=== PATIENT | female | born 1950 | race African-American/Black ===

== ENCOUNTER → 2016-11-12 | Outpatient (CLI) | payer BC, OTHER ==
[~2016-11-12] MED LIST: ACET-1175 PO; DESV50TA PO; DLC5 PO; ERYOPO1 OP; GABA-113 PO; IPRA1AER2 PO; LRS10 PO; METF-384 PO; OXYC-57 PO; PRD20 PO; PRT40 PO; TYL325X PO; UMEC1AER INH; WARF-286 PO; WARF1TAB6 PO
[2016-11-12 14:47] LABS: INR 1.1 (0.9-1.1); PROTHROMBIN TIME (PATIENT) 11.3 SECONDS (9.0-12.0)
[2016-11-12 14:51] LABS: ESTIMATED AVERAGE GLUCOSE 137 mg/dl; HA1C FLAG Normal (Normal)
[2016-11-12 15:06] LABS: ALT/SGPT 18 U/L (12-78); AST/SGOT 12 U/L (15-37); BLOOD UREA NITROGEN 5 mg/dl (7-18); BUN/CREATININE RATIO 8.9 (10-20); CALCIUM 8.7 mg/dl (8.5-10.1); CARBON DIOXIDE 29 mmol/L (21-32); CHLORIDE 108 mmol/L (98-107); CREATININE 0.61 mg/dl (0.60-1.20); GLUCOSE 117 mg/dl (70-99); POTASSIUM 3.4 mmol/L (3.5-5.1); SODIUM 144 mmol/L (136-145)
[2016-11-12 15:09] LABS: ALB/GLOB RATIO 0.9 (0.9-2); ALKALINE PHOSPHATASE 83 U/L (45-117); CHOLESTEROL 273 mg/dl (0-200); CHOLESTEROL/HDL RATIO 6.2; HDL CHOLESTEROL 44 mg/dl; LDL CHOLESTEROL CALCULATED 197 mg/dl; TRIGLYCERIDES 158 mg/dl (0-150); VERY LOW DENSITY LIPOPROT CALC 32 mg/dl
== END | disposition home or self-care (01) ==
LOC: C.LAB 13:53
PROVIDERS: ATTEND Family Medicine
DX: E11.9 Type 2 diabetes mellitus without complications (principal); E78.2 Mixed hyperlipidemia; I26.99 Other pulmonary embolism without acute cor pulmonale

== ENCOUNTER 2016-11-25 05:15 | Inpatient (IN) | payer BC, OTHER ==
[~2016-11-25] VITALS: Ht 167.6 cm; Wt 63.5 kg
[~2016-11-25 05:15] MED LIST changes: -ACET-1175 PO; -DESV50TA PO; -DLC5 PO; -LRS10 PO; -OXYC-57 PO
[2016-11-25] MEDS ORDERED: HYDROmorphone INJ 1 MG/ML SYR IV STA (05:30)
[2016-11-25] MEDS ORDERED: SODIUM CHLORIDE 0.9% 500ML 500 ML IV STA (05:30)
[2016-11-25] MEDS ORDERED: ONDANSETRON INJ 2 MG/ML 2 ML VIAL IV STA (05:30)
--- NOTE | 2016-11-25 05:33 | EMERGENCY ROOM VISIT NOTE ---
History Report prepared by Meghann: Suman Araiza Under the Supervision of: Dr. Catarino Briones M.D. First contact with patient: 05:25 Chief Complaint: ABDOMINAL PAIN Stated Complaint: ABDOMINAL PAIN,NAUSEA,VOMITING History of Present Illness The patient is a 66 year old female who presents to the Emergency Room with complaints of persistent bilateral lower abdominal pain for the past several days. The pain is severe and radiates to her lower back. She has also been experiencing nausea & vomiting for the past two days. She has not had much of an appetite for the past 4-5 days. The patient has also been short of breath. She denies any recent episodes of syncope, chest pain, or black or bloody stools. The patient is on Coumadin. Source of History: patient, family Onset: several days ago Position: abdomen (lower bilateral) Symptom Intensity: severe Timing: other (persistent) Associated Symptoms: + SOB, + nausea, + vomiting, No LOC, No chest pain, No hematochezia, No melena Review of Systems See HPI for pertinent positives & negatives. A total of 10 systems reviewed and were otherwise negative. Past Medical & Surgical Medical Problems: (1) Asthma (2) Bronchitis (3) Cellulitis and abscess of face (4) COPD (chronic obstructive pulmonary disease) (5) Diabetes (6) Diabetic neuropathy (7) Emphysema lung (8) facial cellulitis worsening (9) Gastrointestinal bleed (10) GI bleed (11) Heart disease (12) PE (pulmonary embolism) (13) Pneumonia (14) Pulmonary embolism (15) SOB (shortness of breath) (16) Stroke (17) Tachycardia Family History Cancer Diabetes mellitus Hypertension Social History Smoking Status: Never Smoker Alcohol Use: none Drug Use: marijuana Marital Status: Housing Status: lives with family, lives with significant other Occupation Status: retired Current/Historical Medications Scheduled Desvenlafaxine Succinate Er (Pristiq), 50 MG PO BID Gabapentin (Neurontin), 300 MG PO TID Ipratropium-Albuterol (Combivent Respimat), 1 PUFF PO QID Metformin Hcl (Glucophage), 1,000 MG PO BID Warfarin Sod (Jantoven), 1 MG PO DAILY Warfarin Sodium (Warfarin Sodium), 6 MG PO DAILY Scheduled PRN Acetaminophen (Tylenol), 650 MG PO Q4H PRN for Pain or Fever Allergies Coded Allergies: Bacitracin (Verified Allergy, Intermediate, facial swelling and erythema, 11/25/16) Sulfa Antibiotics (Verified Allergy, Intermediate, ???, 11/25/16) Physical Exam Vital Signs Date Time Temp Pulse Resp B/P Pulse Ox O2 Delivery O2 Flow Rate FiO2 11/25/16 08:23 78 18 185/92 94 Nasal Cannula 2.0 11/25/16 07:51 103 16 97 Nasal Cannula 3.0 11/25/16 07:00 97 Nasal Cannula 3.0 11/25/16 06:47 97 Nasal Cannula 3.0 11/25/16 06:28 67 Room Air 11/25/16 06:26 109 20 172/146 96 Nasal Cannula 3.0 11/25/16 05:19 36.3 73 20 208/75 93 Room Air Physical Exam GENERAL: Patient is very uncomfortable appearing in moderate / severe distress. Dry heaving on exam. HEENT: No acute trauma, normocephalic atraumatic, mucous membranes dry, no nasal congestion, no scleral icterus. NECK: No stridor, no adenopathy, no meningismus, trachea is midline. LUNGS: No dyspnea. Clear to auscultation and equal bilaterally. No wheeze, no rhonchi. HEART: Regular rate and rhythm. No murmurs, rubs, gallops appreciated. ABDOMEN: Diffuse bilateral lower abdominal tenderness to palpation. Soft, bowel sounds positive, no masses appreciated, no peritonitis. BACK: No midline tenderness, no CVA tenderness EXTREMITIES: Normal motion all extremities, no cyanosis, no edema. NEUROLOGIC: Alert and oriented, no acute motor or sensory deficits, no focal weakness, cranial nerves grossly intact. SKIN: No rash, no jaundice, no diaphoresis. Medical Decision & Procedures ER Provider Diagnostic Interpretation: See CT abdo/pelv read by radiologist: 6 mm left distal ureteral stone with mild hydro. Left rectus sheath fluid collection. Laboratory Results Test 11/25/16 05:41 11/25/16 05:51 11/25/16 05:57 RDW Standard Deviation 44.3 fL (36.4-46.3) RDW Coefficient of Variation 13.7 % (11.5-14.5) White Blood Count 12.23 K/uL (4.8-10.8) Red Blood Count 4.77 M/uL (4.2-5.4) Hemoglobin 14.1 g/dL (12.0-16.0) Hematocrit 41.8 % (37-47) Mean Corpuscular Volume 87.6 fL (80-100) Mean Corpuscular Hemoglobin 29.6 pg (25-34) Mean Corpuscular Hemoglobin Concent 33.7 g/dl (32-36) Platelet Count 284 K/uL (130-400) Mean Platelet Volume 10.6 fL (7.4-10.4) Neutrophils (%) (Auto) 77.6 % Lymphocytes (%) (Auto) 14.8 % Monocytes (%) (Auto) 6.4 % Eosinophils (%) (Auto) 0.7 % Basophils (%) (Auto) 0.3 % Neutrophils # (Auto) 9.49 K/uL (1.4-6.5) Lymphocytes # (Auto) 1.81 K/uL (1.2-3.4) Monocytes # (Auto) 0.78 K/uL (0.11-0.59) Eosinophils # (Auto) 0.09 K/uL (0-0.5) Basophils # (Auto) 0.04 K/uL (0-0.2) Immature Granulocyte % (Auto) 0.2 % Immature Granulocyte # (Auto) 0.02 K/uL (0.00-0.02) Est Creatinine Clear Calc Drug Dose 66.3 ml/min Total Bilirubin 0.3 mg/dl (0.2-1) Direct Bilirubin < 0.1 mg/dl (0-0.2) Aspartate Amino Transf (AST/SGOT) 13 U/L (15-37) Alanine Aminotransferase (ALT/SGPT) 12 U/L (12-78) Alkaline Phosphatase 89 U/L (45-117) Total Protein 7.7 gm/dl (6.4-8.2) Albumin 3.9 gm/dl (3.4-5.0) Lipase 81 U/L (73-393) Bedside Lactic Acid Venous 1.70 mmol/L (0.90-1.70) Bedside Hemoglobin 15.0 g/dl (12.0-16.0) Bedside Hematocrit 44 % (37-47) Bedside Sodium 143 mEq/L (135-144) Bedside Potassium 3.0 mEq/L (3.3-5.0) Bedside Chloride 100 mEq/L (101-112) Bedside Total CO2 28 mEq/l (24-31) Bedside Blood Urea Nitrogen 9 mg/dl (7-18) Bedside Creatinine 0.7 mg/dl (0.6-1.3) Bedside Glucose (other) 237 mg/dl (70-99) Bedside Ionized Calcium (Ruth) 1.20 mmol/l (1.12-1.32) Laboratory results as reviewed by me. Medications Administered Medications (Trade) Dose Ordered Sig/[facility] Route Start Time Stop Time Status Last Admin Dose Admin Sodium Chloride (Nss 500ml) 500 ml @ 999 mls/hr Q31M STAT IV 11/25/16 05:30 11/25/16 06:00 DC 11/25/16 05:42 999 MLS/HR Hydromorphone HCl (Dilaudid Inj) 1 mg NOW STAT IV 11/25/16 05:30 11/25/16 05:32 DC 11/25/16 05:42 1 MG Ondansetron HCl (Zofran Inj) 4 mg NOW STAT IV 11/25/16 05:30 11/25/16 05:32 DC 11/25/16 05:42 4 MG Fentanyl Citrate (Fentanyl Inj) 75 mcg NOW STAT IV 11/25/16 06:17 11/25/16 06:18 DC 11/25/16 06:23 75 MCG Hydromorphone HCl 1 mg 1 mg Q30M PRN IV 11/25/16 06:30 11/25/16 12:40 DC 11/25/16 10:33 1 MG Sodium Chloride (Nss 1000ml) 1,000 ml @ 75 mls/hr [id number] STAT IV 11/25/16 06:27 11/25/16 12:41 DC 11/25/16 06:42 75 MLS/HR Magnesium Sulfate (Magnesium Sulfate) 1 gm NOW STAT IV 11/25/16 08:17 11/25/16 08:29 DC 11/25/16 10:33 1 GM ED Course 0525: The patient was evaluated in room B9. A complete history and physical exam was performed. 0530: Zofran 4 mg IV, Dilaudid 1 mg IV, NSS 500 ml @ 999 mls/hr. 0617: Fentanyl 75 mcg IV. Medical Decision Differential: Appendicitis, Diverticulitis, PUD/Gastritis, Biliary Pathology, UTI, Pyelonephritis, Renal Colic, Bowel Obstruction, Aortic Pathology, Acute Coronary Syndrome, amongst other pathologies entertained. Very pleasant 66 yr old female with gradually worsening bilateral lower abdominal pain over the last 4 days. Initially started improving though has returned severely. Pain bilateral and radiates to flanks. Given symptoms felt CT mandatory which revealed left ureteral stone with hydro as well as rectus hematoma. Suspect with vomiting/dry heaving from stone she has rectus bleeding as she is on Coumadin. Severely uncomfortable and no improvement with initial Dilaudid, thus given fentanyl. Pain improved with this though quite somnolent. INR 1.6 thus will hold on reversing anticoagulation as not hypotensive and HgB is good. Gentle hydration given her history as well. Given this she will need to come in for further evaluation, monitoring, treatment. Discussed with medical team. Impression Primary Impression: Left ureteral calculus Additional Impressions: Hydronephrosis, left Rectus sheath hematoma Intractable abdominal pain Scribe Attestation The scribe's documentation has been prepared under my direction and personally reviewed by me in its entirety. I confirm that the note above accurately reflects all work, treatment, procedures, and medical decision making performed by me. Departure Information Referrals Denis Samuel DO (PCP) Forms HOME CARE DOCUMENTATION FORM, IMPORTANT VISIT INFORMATION Patient Instructions My [facility] Problem Qualifiers Additional Impressions: Rectus sheath hematoma Encounter type: initial encounter Qualified Codes: S30.1XXA - Contusion of abdominal wall, initial encounter
[2016-11-25] MEDS ORDERED: DESV50TA PO (05:36)
[2016-11-25] MEDS ORDERED: OPTIRAY 320 IV PRN ×2 (05:45→08:45)
[2016-11-25 06:11] LABS: ISTAT CREATININE 0.7 mg/dl (0.6-1.3); ISTAT IONIZED CALCIUM 1.2 mmol/l (1.12-1.32)
[2016-11-25] MEDS ORDERED: FENTANYL CITRATE INJ 50 MCG/1 ML 2 ML VIAL IV STA (06:17)
[2016-11-25 06:19] LABS: ALT/SGPT 12 U/L (12-78); BLOOD UREA NITROGEN 10 mg/dl (7-18); BUN/CREATININE RATIO 12.8 (10-20); CALCIUM 9.3 mg/dl (8.5-10.1); CARBON DIOXIDE 28 mmol/L (21-32); CHLORIDE 104 mmol/L (98-107); CREATININE 0.76 mg/dl (0.60-1.20); GLUCOSE 228 mg/dl (70-99); MAGNESIUM 1.5 mg/dl (1.8-2.4); SODIUM 142 mmol/L (136-145)
[2016-11-25] MEDS ORDERED: ACET-1175 PO (06:20)
[2016-11-25 06:22] LABS: ALKALINE PHOSPHATASE 89 U/L (45-117); AST/SGOT 13 U/L (15-37)
[2016-11-25 06:26] LABS: INR 1.6 (0.9-1.1); PROTHROMBIN TIME (PATIENT) 17.7 SECONDS (9.0-12.0)
[2016-11-25] MEDS ORDERED: SODIUM CHLORIDE 0.9% 1000ML 1,000 ML IV STA (06:27)
[2016-11-25] MEDS ORDERED: ONDANSETRON INJ 2 MG/ML 2 ML VIAL IV PRN (06:30)
[2016-11-25 07:00] VITALS: O2SAT 97; Ht 167.6 cm; Wt 63.5 kg
--- NOTE | 2016-11-25 07:05 | DIAGNOSTIC IMAGING REPORT ---
ABDOMEN AND PELVIS CT WITH IV CONTRAST CT DOSE: 259.54 mGy.cm HISTORY: Pain bilateral abdominal lower pain TECHNIQUE: Multiaxial CT images of the abdomen and pelvis were performed following the use of intravenous contrast. COMPARISON STUDY: A1 2013 FINDINGS: 5 mm obstructing calculus distal left ureter slightly proximal to the left ureterovesical junction. Mild left hydroureteronephrosis. Bowel pattern is nonobstructive. Liver spleen and pancreas are unremarkable. Fluid collection within the right rectus musculature at its inferior margin measuring 6 x 4.5 x 8 cm. This appears represent a rectus hematoma versus seroma. Several uterine myometrial calcifications. IMPRESSION: 1. Obstructing calculus distal left ureter measuring 5 mm. 2. Mild left hydroureteronephrosis. 3. Lower right rectus hematoma/seroma. 4. Nonobstructive bowel pattern. Electronically signed by: Scout Lopez M.D. 11/25/2016 7:03 AM Dictated Date/Time: 11/25/2016 7:00 AM
[2016-11-25 07:28] LABS: BASO % 0.3 %; BASO ABS # 0.04 K/uL (0-0.2); COMPLETE YES; EOS % 0.7 %; HEMATOCRIT 41.8 % (37-47); IG% 0.2 %; LYMPH % 14.8 %; LYMPH ABS # 1.81 K/uL (1.2-3.4); MEAN CELL VOLUME 87.6 fL (80-100); MEAN CORPUSCULAR HEMOGLOBIN 29.6 pg (25-34); MEAN CORPUSCULAR HGB CONC 33.7 g/dl (32-36); MEAN PLATELET VOLUME 10.6 fL (7.4-10.4); MONO % 6.4 %; NEUT % 77.6 %; PLATELET COUNT 284 K/uL (130-400); RED BLOOD COUNT 4.77 M/uL (4.2-5.4); WHITE BLOOD COUNT 12.23 K/uL (4.8-10.8)
[2016-11-25] MEDS: HYDROmorphone INJ 1 MG/ML SYR IV PRN ×6 (07:50→23:41)
[2016-11-25] MEDS ORDERED: MAGNESIUM SULFATE 1GM / D5W 1 GM BAG IV STA (08:17)
[2016-11-25] MEDS ORDERED: HydrALAZINE HCL 20 MG/ML VIAL IV. PRN (08:30)
[2016-11-25] MEDS ORDERED: ACETAMINOPHEN 325 MG TAB PO PRN (08:30)
--- NOTE | 2016-11-25 08:40 | History and Physical ---
History & Physical Date & Time of Service: Nov 25, 2016 at 08:27 Chief Complaint: Abdominal Pain,Nausea,Vomiting Primary Care Physician: Denis Samuel DO History of Present Illness Source: patient, hospital records This patient is a 66-year-old female that presents to emergency department with complaints of lower abdominal pain that started 4-5 days ago. It started on the right. It is now the entire lower abdomen and radiates to her back. She describes it as a severe dull ache. No exacerbating or alleviating factors. She is also had nausea with multiple episodes of vomiting in addition to some diarrhea. No reported dark stools or blood in her stool. She denies any fever or chills. She denies any urinary symptoms. The patient also says that she has felt short of breath over the last few days. She denies any chest pain or pressure. No cough. She does have a history of COPD. She is typically on oxygen at home. Past Medical/Surgical History Medical Problems: Hx of Gastritis (3) COPD (chronic obstructive pulmonary disease) Status: Chronic (4) Diabetes Status: Chronic (5) Diabetic neuropathy Status: Chronic (6) Emphysema lung Status: Resolved (7) Heart disease Status: Chronic (8) PE (pulmonary embolism) Status: Resolved (9) Pneumonia Status: Resolved (10) Pulmonary embolism Status: Resolved (11) Stroke Status: Resolved TIA Status post IVC filter placement Anxiety Family History Cancer Diabetes mellitus Hypertension Social History Smoking Status: Current Every Day Smoker (smokes one pack of cigarettes per day ) Alcohol Use: none Drug Use: marijuana Marital Status: Housing status: lives with family 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) Immunizations History of Influenza Vaccine: No Influenza Vaccine Date: Aug 07, 2010 History of Tetanus Vaccine?: Unknown History of Pneumococcal: No Pneumococcal Date: May 04, 2006 History of Hepatitis B Vaccine: Unknown Multi-Drug Resistant Organisms History of MDRO: No Allergies Coded Allergies: Bacitracin (Verified Allergy, Intermediate, facial swelling and erythema, 11/25/16) Sulfa Antibiotics (Verified Allergy, Intermediate, ???, 11/25/16) Home Medications Scheduled Desvenlafaxine Succinate Er (Pristiq), 50 MG PO BID Gabapentin (Neurontin), 300 MG PO TID Ipratropium-Albuterol (Combivent Respimat), 1 PUFF PO QID Metformin Hcl (Glucophage), 1,000 MG PO BID Warfarin Sod (Jantoven), 1 MG PO DAILY Warfarin Sodium (Warfarin Sodium), 6 MG PO DAILY Scheduled PRN Acetaminophen (Tylenol), 650 MG PO Q4H PRN for Pain or Fever Review of Systems 10 system review performed and negative unless noted in HPI or below Physical Exam Vital Signs Date Time Temp Pulse Resp B/P Pulse Ox O2 Delivery O2 Flow Rate FiO2 11/25/16 08:23 78 18 185/92 94 Nasal Cannula 2.0 11/25/16 07:51 103 16 97 Nasal Cannula 3.0 11/25/16 07:00 97 Nasal Cannula 3.0 11/25/16 06:47 97 Nasal Cannula 3.0 11/25/16 06:28 67 Room Air 11/25/16 06:26 109 20 172/146 96 Nasal Cannula 3.0 11/25/16 05:19 36.3 73 20 208/75 93 Room Air General Appearance: + mild distress (66-year-old female. Somewhat somnolent) Head: normocephalic Eyes: EOMI ENT: + pertinent finding (oral mucosa dry) Neck: no JVD Respiratory/Chest: lungs clear Cardiovascular: no murmur, + tachycardia, + pertinent finding (regular rhythm) Abdomen/GI: normal bowel sounds, soft, + pertinent finding (tenderness to palpation noted in the left lower and suprapubic regions. Left CVA tenderness noted.) Extremities/Musculoskelatal: no calf tenderness, no pedal edema Neurologic/Psych: no motor/sensory deficits, oriented x 3 Skin: warm/dry Diagnostics Laboratory Results Results Past 24 Hours Test 11/25/16 05:41 11/25/16 05:51 11/25/16 05:57 Range/Units White Blood Count 12.23 4.8-10.8 K/uL Red Blood Count 4.77 4.2-5.4 M/uL Hemoglobin 14.1 12.0-16.0 g/dL Hematocrit 41.8 37-47 % Mean Corpuscular Volume 87.6 80-100 fL Mean Corpuscular Hemoglobin 29.6 25-34 pg Mean Corpuscular Hemoglobin Concent 33.7 32-36 g/dl Platelet Count 284 130-400 K/uL Mean Platelet Volume 10.6 7.4-10.4 fL Neutrophils (%) (Auto) 77.6 % Lymphocytes (%) (Auto) 14.8 % Monocytes (%) (Auto) 6.4 % Eosinophils (%) (Auto) 0.7 % Basophils (%) (Auto) 0.3 % Neutrophils # (Auto) 9.49 1.4-6.5 K/uL Lymphocytes # (Auto) 1.81 1.2-3.4 K/uL Monocytes # (Auto) 0.78 0.11-0.59 K/uL Eosinophils # (Auto) 0.09 0-0.5 K/uL Basophils # (Auto) 0.04 0-0.2 K/uL RDW Standard Deviation 44.3 36.4-46.3 fL RDW Coefficient of Variation 13.7 11.5-14.5 % Immature Granulocyte % (Auto) 0.2 % Immature Granulocyte # (Auto) 0.02 0.00-0.02 K/uL Prothrombin Time 17.7 9.0-12.0 SECONDS Prothromb Time International Ratio 1.6 0.9-1.1 Sodium Level 142 136-145 mmol/L Potassium Level 3.0 3.5-5.1 mmol/L Chloride Level 104 98-107 mmol/L Carbon Dioxide Level 28 21-32 mmol/L Anion Gap 10.0 19.0 16-25 mmol/L Blood Urea Nitrogen 10 7-18 mg/dl Creatinine 0.76 0.60-1.20 mg/dl Est Creatinine Clear Calc Drug Dose 66.3 ml/min Estimated GFR () 93.4 Estimated GFR (Non- 80.6 BUN/Creatinine Ratio 12.8 10-20 Random Glucose 228 70-99 mg/dl Calcium Level 9.3 8.5-10.1 mg/dl Magnesium Level 1.5 1.8-2.4 mg/dl Total Bilirubin 0.3 0.2-1 mg/dl Direct Bilirubin < 0.1 0-0.2 mg/dl Aspartate Amino Transf (AST/SGOT) 13 15-37 U/L Alanine Aminotransferase (ALT/SGPT) 12 12-78 U/L Alkaline Phosphatase 89 45-117 U/L Total Protein 7.7 6.4-8.2 gm/dl Albumin 3.9 3.4-5.0 gm/dl Lipase 81 73-393 U/L Bedside Lactic Acid Venous 1.70 0.90-1.70 mmol/L Bedside Hemoglobin 15.0 12.0-16.0 g/dl Bedside Hematocrit 44 37-47 % Bedside Sodium 143 135-144 mEq/L Bedside Potassium 3.0 3.3-5.0 mEq/L Bedside Chloride 100 101-112 mEq/L Bedside Total CO2 28 24-31 mEq/l Bedside Blood Urea Nitrogen 9 7-18 mg/dl Bedside Creatinine 0.7 0.6-1.3 mg/dl Bedside Glucose (other) 237 70-99 mg/dl Bedside Ionized Calcium (Ruth) 1.20 1.12-1.32 mmol/l Diagnostic Radiology Patient Name: LUIZ KIDD Unit Number: [id number] Dictated: 11/25/16699 Transcribed: 11/25/16699 MS Printed Date/Time: [~ rep prt dt]/[~ rep prt tm] [~ rep ct labl] - [~ rep ct ivnm] [facility] [place] [place] [address] Dictated: 11/25/16699 Transcribed: 11/25/16699 MS Printed Date/Time: [~ rep prt dt]/[~ rep prt tm] [~ rep ct labl] - [~ rep ct ivnm] ABDOMEN AND PELVIS CT WITH IV CONTRAST CT DOSE: 259.54 mGy.cm HISTORY: Pain bilateral abdominal lower pain TECHNIQUE: Multiaxial CT images of the abdomen and pelvis were performed following the use of intravenous contrast. COMPARISON STUDY: A1 2013 FINDINGS: 5 mm obstructing calculus distal left ureter slightly proximal to the left ureterovesical junction. Mild left hydroureteronephrosis. Bowel pattern is nonobstructive. Liver spleen and pancreas are unremarkable. Fluid collection within the right rectus musculature at its inferior margin measuring 6 x 4.5 x 8 cm. This appears represent a rectus hematoma versus seroma. Several uterine myometrial calcifications. IMPRESSION: 1. Obstructing calculus distal left ureter measuring 5 mm. 2. Mild left hydroureteronephrosis. 3. Lower right rectus hematoma/seroma. 4. Nonobstructive bowel pattern. Electronically signed by: Scout Lopez M.D. 11/25/2016 7:03 AM Dictated Date/Time: 11/25/2016 7:00 AM The status of this report is Signed. Draft = Not yet reviewed or approved by Radiologist. Signed = Reviewed and approved by Radiologist. <AttendingPhy></AttendingPhy> <FamilyPhy>Denis Samuel, DO</FamilyPhy> < PrimaryPhy>Denis Samuel, DO</PrimaryPhy> <UnitNumber>[id number]</ UnitNumber> <VisitNumber>[id number]</VisitNumber> <PatientName>LUIZ KIDD< /PatientName> <DateOfBirth>1950</DateOfBirth> <Location>C.EDB</Location> < ServiceDate>11/25/16</ServiceDate> <MNE>ESINDI</MNE> <OrderingPhy>Catarino Briones M.D.</OrderingPhy> <OrderingPhyMNE>f rep ord dr kerns</OrderingPhyMNE> < DictatingPhyMNE>f rep dict dr kerns</DictatingPhyMNE> <CCListMNE>f rep ct mne</ CCListMNE> <AdmittingPhyMNE>f pt admit dr kerns</AdmittingPhyMNE> <AttendingPhyMNE >f pt attend dr kerns</AttendingPhyMNE> <ConsultingPhyMNE>f pt consult dr kerns</ConsultingPhyMNE> <FamilyPhyMNE>f pt fam dr kerns</FamilyPhyMNE> <OtherPhyMNE>f pt other dr kerns</OtherPhyMNE> < PrimaryPhyMNE>f pt prim care dr kerns</PrimaryPhyMNE> <ReferringPhyMNE>f pt referring dr kerns</ReferringPhyMNE> Impression Assessment and Plan 66-year-old female presented to the emergency department with lower abdominal pain, nausea, vomiting and diarrhea for the last several days. Also notes some shortness of breath. Workup in the emergency department is significant for a 5 mm left ureteral obstructing stone and a hematoma in the rectus musculature of the abdomen. Ureteral stone -Admit to medical floor -Dilaudid 1 mg IV every 2 hours as needed for pain -Begin Flomax 0.4 mg daily -Follow up urine to rule out infection -Urology consult -IVF -NPO Shortness of breath-patient is also tachycardic. -CT chest to rule out PE -Lower extremity ultrasound bilaterally-rule out DVT DM -home dose of metformin 1000 mg po BID will need to be held for [address] HTN-no formal dx -Hydralazine 10 mg IV q 6 hr PRN -consider adding beta vikki or natalya (not now given IV contrast) COPD -Continue Combivent inhaler 4 times daily History of clotting disorder/PE-INR is subtherapeutic -Hold Coumadin for possible OR procedure in addition to rectus muscle hematoma -Check INR in the morning Hx of IVC filter placement-unsure what year -noted Hypokalemia/hypomagnesemia -Repleted -Check PRP was a magnesium in the morning Rectus muscle hematoma -Hold Coumadin as noted above -Watch for signs of increasing abdominal pain Anxiety -Continue Pristiq 50 mg po BID DVT prophylaxis -Teds and SCDs for now -Consider starting low-dose subcutaneous heparin tomorrow CODE STATUS -LEVEL I FULL CODE I agree with PA assessment and plan and have seen and examined pt myself Pt resting comfortably in bed althought states pain is 8/10 in LLQ abdomen Asking for more pain meds Conservative management for kidney stone VSS Reviewed labs Observe rectus hematoma Level of Care Med/Surg Advanced Directives Existing Living Will: No Existing Power of District Sales Coordinator: No Resuscitation Status FULL RESUSCITATION VTE Prophylaxis VTE Risk Assessment Done? Y/N: Yes Risk Level: Moderate Given or contraindicated: T.E.D. Stockings, SCD's, Contraindicated
[2016-11-25] MEDS ORDERED: TAMSULOSIN HCL 0.4 MG CAP PO ONE (09:00)
--- NOTE | 2016-11-25 09:34 | DIAGNOSTIC IMAGING REPORT ---
CT ANGIOGRAPHY OF THE CHEST, PULMONARY EMBOLUS PROTOCOL CLINICAL HISTORY: Shortness of breath and tachycardia. History of pulmonary embolus. COMPARISON STUDY: Chest CT August 01, 2016. TECHNIQUE: Following IV administration of 76 mL of [id number], helical axial images of the chest were obtained utilizing the pulmonary embolus protocol. Maximal intensity projections and sagittal and coronal reformats were viewed on an independent 3D workstation. IV contrast was administered without complication. CT DOSE: 262.45 mGy.cm FINDINGS: No pulmonary emboli are identified. The heart is mildly enlarged. There is moderate coronary artery calcification. There is moderate atherosclerotic plaque of the thoracic aorta without dissection. Central airways are patent. Groundglass opacities represent atelectasis. There is no pneumothorax or pleural effusion. Visualized portions of the upper abdomen demonstrate mild to moderate left hydronephrosis with a delayed left nephrogram with perinephric infiltration. IMPRESSION: 1. No pulmonary emboli identified. 2. No acute intrathoracic findings. 3. Delayed left diaphragm with left hydronephrosis and perinephric infiltration due to the distal left ureteral calculus which is shown on the abdominal CT performed earlier today. Electronically signed by: Dawit Sorto M.D. 11/25/2016 9:32 AM Dictated Date/Time: 11/25/2016 9:21 AM
--- NOTE | 2016-11-25 09:43 | DIAGNOSTIC IMAGING REPORT ---
BILATERAL LOWER EXTREMITY VENOUS DOPPLER HISTORY: Short of breath. History of pontine most. Assess for DVT. COMPARISON STUDY: None. FINDINGS: There is normal compressibility and augmentation within the bilateral lower extremity deep venous systems. Slow venous flow throughout the bilateral lower extremities. IMPRESSION: No DVT within the right or left lower extremity. Electronically signed by: Balwinder Nam M.D. 11/25/2016 9:41 AM Dictated Date/Time: 11/25/2016 9:40 AM
[2016-11-25] MEDS ORDERED: MAGNESIUM SULFATE 1GM / D5W 1 GM BAG ONE (10:35)
[2016-11-25 12:39] VITALS: BP 114/79; PULSE 97; TEMP 36; O2SAT 90
[2016-11-25] MEDS ORDERED: DEXTROSE 50% 50 ML SYR IV PRN (12:45)
[2016-11-25] MEDS ORDERED: GLUCOSE 10 TABS/TUBE PO PRN (12:45)
[2016-11-25] MEDS ORDERED: GLUCOSE 40% GEL 15 GM TUBE PO PRN (12:45)
[2016-11-25] MEDS ORDERED: GLUCAGON FOR INJ 1 MG VIAL SQ PRN (12:45)
[2016-11-25 13:35] LABS: URINE APPEARANCE CLEAR (CLEAR); URINE BILIRUBIN NEG (NEG); URINE COLOR YELLOW; URINE NITRITE NEG (NEG); URINE PH 5.5 (4.5-7.5); UROBILINOGEN NEG (NEG); ZZUR CULT IF INDIC CLEAN CATCH NO
--- NOTE | 2016-11-25 13:38 | Urology Consultation ---
History General Date of Service: Nov 25, 2016. Chief Complaint: abdominal pain Primary Care Physician: Denis Samuel, DO Pt seen a urologist before?: Yes (Dr. Cody in 2010) If yes, why?: hematuria History of Present Illness 66 yo female presents to [facility] with c/o RLQ abdominal pain x 4 days. She reports the pain became diffuse abdominal pain and was accompanied by n/v yesterday, so she came to [facility]. CT scan showing a 5mm distal left ureteral stone and an 8cm right rectus hematoma vs seroma. She has a lengthy hx of PE with filter currently in place. She reports to me this afternoon that she was hospitalized in [place] earlier this year and told she had a "blood collection" in her abdomen at that time which was just observed. She reports similar abdominal pain at that time. On Coumadin indefinitely for her chronic PEs. This is currently held. She has no previous hx of stones. Previously saw Dr. Cody in 2010 for gross hematuria. She reports her pain is currently controlled, but she continues to have n/v. Denies fevers at home. She is afebrile here. White count noted to be 12.23. Cr is 0.76. Denies dysuria or hematuria. Imaging Imaging: CT Laboratory Last 24 Hours Test 11/25/16 05:41 11/25/16 05:51 11/25/16 05:57 11/25/16 12:40 White Blood Count 12.23 K/uL Red Blood Count 4.77 M/uL Hemoglobin 14.1 g/dL Hematocrit 41.8 % Mean Corpuscular Volume 87.6 fL Mean Corpuscular Hemoglobin 29.6 pg Mean Corpuscular Hemoglobin Concent 33.7 g/dl Platelet Count 284 K/uL Mean Platelet Volume 10.6 fL Neutrophils (%) (Auto) 77.6 % Lymphocytes (%) (Auto) 14.8 % Monocytes (%) (Auto) 6.4 % Eosinophils (%) (Auto) 0.7 % Basophils (%) (Auto) 0.3 % Neutrophils # (Auto) 9.49 K/uL Lymphocytes # (Auto) 1.81 K/uL Monocytes # (Auto) 0.78 K/uL Eosinophils # (Auto) 0.09 K/uL Basophils # (Auto) 0.04 K/uL RDW Standard Deviation 44.3 fL RDW Coefficient of Variation 13.7 % Immature Granulocyte % (Auto) 0.2 % Immature Granulocyte # (Auto) 0.02 K/uL Prothrombin Time 17.7 SECONDS Prothromb Time International Ratio 1.6 Sodium Level 142 mmol/L Potassium Level 3.0 mmol/L Chloride Level 104 mmol/L Carbon Dioxide Level 28 mmol/L Anion Gap 10.0 mmol/L 19.0 mmol/L Blood Urea Nitrogen 10 mg/dl Creatinine 0.76 mg/dl Est Creatinine Clear Calc Drug Dose 66.3 ml/min Estimated GFR () 93.4 Estimated GFR (Non- 80.6 BUN/Creatinine Ratio 12.8 Random Glucose 228 mg/dl Calcium Level 9.3 mg/dl Magnesium Level 1.5 mg/dl Total Bilirubin 0.3 mg/dl Direct Bilirubin < 0.1 mg/dl Aspartate Amino Transf (AST/SGOT) 13 U/L Alanine Aminotransferase (ALT/SGPT) 12 U/L Alkaline Phosphatase 89 U/L Total Protein 7.7 gm/dl Albumin 3.9 gm/dl Lipase 81 U/L Bedside Lactic Acid Venous 1.70 mmol/L Bedside Hemoglobin 15.0 g/dl Bedside Hematocrit 44 % Bedside Sodium 143 mEq/L Bedside Potassium 3.0 mEq/L Bedside Chloride 100 mEq/L Bedside Total CO2 28 mEq/l Bedside Blood Urea Nitrogen 9 mg/dl Bedside Creatinine 0.7 mg/dl Bedside Glucose (other) 237 mg/dl Bedside Ionized Calcium (Ruth) 1.20 mmol/l Problem List Medical Problems: (1) Chest pain Status: Acute (2) Hydronephrosis, left Status: Acute (3) Intractable abdominal pain Status: Acute (4) Left ureteral calculus Status: Acute (5) Rectus sheath hematoma Status: Acute (6) Subtherapeutic international normalized ratio (INR) Status: Acute (7) Subtherapeutic phenytoin level Status: Acute (8) Upper GI bleeding Status: Acute Past History anxiety, cancer - breast, COPD, coronary artery disease, CVA/TIA/stroke (TIA), diabetes, pneumonia, pulmonary embolism (multiple), other Past Surgical History: other (IVC filter placement; breast lumpectomy) Family History Cancer Diabetes mellitus Hypertension Social History Hx Tobacco Use In Past Year?: Yes Smokin pack/day Alcohol: never Drug use: marijuana Marital status: Housing status: lives with family 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) Immunizations History of Influenza Vaccine: No Influenza Vaccine Date: Aug 07, 2010 History of Tetanus Vaccine?: Unknown History of Pneumococcal: No Pneumococcal Date: May 04, 2006 History of Hepatitis B Vaccine: Unknown History of MDRO No Allergies Coded Allergies: Bacitracin (Verified Allergy, Intermediate, facial swelling and erythema, 11/25/16) Sulfa Antibiotics (Verified Allergy, Intermediate, ???, 11/25/16) Medications Home Medications: Home Meds and Scripts Medications Dose Route/Sig Max Daily Dose Days Date Category Dose Instructions Tylenol (Acetaminophen) 325 Mg Tab 650 Mg PO Q4H PRN 11/25/16 Reported Pristiq (Desvenlafaxine Succinate) 50 Mg Tab 50 Mg PO BID 11/25/16 Reported Glucophage (Metformin Hcl) 1,000 Mg Tab 1,000 Mg PO BID 07/24/16 Reported Warfarin Sodium 6 Mg Tab 6 Mg PO DAILY 07/24/16 Reported take with 1 mg warfarin tablet for a total dose of 7 mg daily Jantoven (Warfarin Sodium) 1 Mg Tab 1 Mg PO DAILY 07/24/16 Reported take with 6 mg of warfarin for a total dose of 7 mg daily Neurontin (Gabapentin) 300 Mg Cap 300 Mg PO TID 04/14/15 Reported Combivent Respimat (Ipratropium-Albuterol) 1 Aer Aer 1 Puff PO QID 03/27/15 Reported Inpatient Medications: Current Inpatient Medications Medications (Trade) Dose Ordered Sig/Sarina Route Start Time Stop Time Status Last Admin Dose Admin Ioversol (Optiray 320) 100 ml UD PRN IV 11/25/16 05:45 11/29/16 05:44 Hydromorphone HCl 1 mg 1 mg Q2H PRN IV 11/25/16 08:30 12/09/16 08:29 Potassium Chloride/Sodium Chloride 1,000 ml @ 150 mls/hr Q6H40M IV 11/25/16 13:00 12/25/16 08:29 Potassium Chloride/Prmx (Kcl 10 Meq / Wtr/Premixed Water) 100 ml @ 100 mls/hr Q1H IV 11/25/16 13:00 11/25/16 14:59 Hydralazine HCl (HydrALAZINE INJ) 10 mg Q6H PRN IV. 11/25/16 08:30 12/25/16 08:29 Acetaminophen (Tylenol Tab) 650 mg Q4H PRN PO 11/25/16 08:30 12/25/16 08:29 Ondansetron HCl (Zofran Inj) 4 mg Q6H PRN IV 11/25/16 08:30 12/25/16 08:29 Insulin Aspart (novoLOG ASPART) SLIDING SCALE G... ACHS SC 11/25/16 13:00 12/25/16 12:59 Gabapentin (Neurontin Cap) 300 mg TID PO 11/25/16 14:00 12/25/16 13:59 Miscellaneous Information (Order Awaiting Action) 1 ea QS N/A 11/25/16 16:00 12/25/16 15:59 Albuterol/ Ipratropium (Combivent Respimat Inh) 1 puffs QID INH 11/25/16 13:00 12/25/16 12:59 Ioversol (Optiray 320) 100 ml UD PRN IV 11/25/16 08:45 11/29/16 08:44 Tamsulosin HCl (Flomax Cap) 0.4 mg QAM PO 11/26/16 09:00 12/26/16 08:59 Glucose (Glucose 40% Gel) 15-30 GRAMS 15 GRAMS... UD PRN PO 11/25/16 12:45 12/25/16 12:44 Glucose (Glucose Chew Tab) 4-8 Tablets 4 Tabl... UD PRN PO 11/25/16 12:45 12/25/16 12:44 Dextrose (Dextrose 50% 50ML Syringe) 25-50ML OF 50% DW IV FOR... UD PRN IV 11/25/16 12:45 12/25/16 12:44 Glucagon (Glucagon Inj) 1 mg UD PRN SQ 11/25/16 12:45 12/25/16 12:44 Review of Systems Review of Systems Constitutional: No chills, No fever Eyes: No double vision Neurological: No dizzy Endocrine: No excessive thirst Gastrointestinal: + abdominal pain (diffuse), + diarrhea, + nausea, + see HPI, + vomiting Cardiovascular: No chest pain Respiratory: No shortness of breath Skin: No rash Musculoskeletal: No back pain Female : No blood in urine, No painful urination Physical Exam Vital Signs: Vital Signs Past 12 Hours Date Time Temp Pulse Resp B/P Pulse Ox O2 Delivery O2 Flow Rate FiO2 11/25/16 12:39 36.0 97 18 114/79 90 Room Air 11/25/16 10:00 79 18 126/95 98 Nasal Cannula 3.0 11/25/16 08:23 78 18 185/92 94 Nasal Cannula 2.0 11/25/16 07:51 103 16 97 Nasal Cannula 3.0 11/25/16 07:00 97 Nasal Cannula 3.0 11/25/16 06:47 97 Nasal Cannula 3.0 11/25/16 06:28 67 Room Air 11/25/16 06:26 109 20 172/146 96 Nasal Cannula 3.0 11/25/16 05:19 36.3 73 20 208/75 93 Room Air Physical Exam: General Appearance: no apparent distress Eyes: bilateral eyes normal inspection ENT: hearing grossly normal Neck: no JVD Respiratory/Chest: no respiratory distress, no accessory muscle use Cardiovascular: no JVD Extremities: normal inspection Neurologic/Psychiatric: alert, normal mood/affect, oriented x 3 Skin: normal color Assessment & Plan Assessment & Plan A/P: Abdominal pain, 5mm distal left ureteral stone, 8cm right rectus hematoma vs seroma AFVSS. Pt with diffuse abdominal pain ? r/t her left ureteral stone vs right rectus/ hematoma vs a combination of the two. Pain currently controlled and no evidence of sepsis. Will attempt a trial of passage with MET today. Supportive management with IVF, pain control, and Flomax. Will send a UC&S. Will provide a diet today. NPO after midnight for possible stent placement tomorrow in the event pain persists. Would need urgent stent placement in the setting of fever. Will repeat a KUB and labs in the AM. Strain all urine. Thanks for the consult. Will continue to follow along with primary service at this time.
[2016-11-25] MEDS: INSULIN ASPART 100 UNITS/ML 3 ML PEN SC SCH ×3 (13:41→20:33)
[2016-11-25] MEDS: POTASSIUM CHLR 10 MEQ / WTR 10 MEQ in PREMIXED WATER 100 ML IV SCH ×2 (13:41→14:43)
[2016-11-25] MEDS: NSS + 20MEQ KCL 1000ML 1,000 ML IV SCH ×2 (13:41→20:23)
[2016-11-25] MEDS: IPRATROPIUM BROMIDE/ALBUTEROL respimat INH INH SCH ×3 (13:43→20:33)
[2016-11-25 13:46] LABS: MANUAL MICROSCOPIC REQUIRED? NO; REVIEW REQ? YES; URINE SPECIFIC GRAVITY > 1.030 (1.000-1.030)
[2016-11-25] MEDS: GABAPENTIN 300 MG CAP PO SCH ×2 (13:46→20:23)
[2016-11-25 13:48] LABS: URINE EPITHELIAL CELL AUTO 0-5 /lpf (0-5)
[2016-11-25 14:57] VITALS: BP 105/63; PULSE 100; TEMP 36.4; O2SAT 94
[2016-11-25 15:10] VITALS: BP 105/72
[2016-11-25 21:23] VITALS: O2SAT 96
[2016-11-25] MEDS: ONDANSETRON INJ 2 MG/ML 2 ML VIAL IV PRN (23:50)
[2016-11-26 00:31] VITALS: BP 113/65; PULSE 110; TEMP 36.2; O2SAT 97
[2016-11-26 00:46] VITALS: O2SAT 96
[2016-11-26] MEDS: NSS + 20MEQ KCL 1000ML 1,000 ML IV SCH ×2 (03:21→10:05)
[2016-11-26 07:19] VITALS: BP 118/64; PULSE 100; TEMP 36.8; O2SAT 100
[2016-11-26 07:19] LABS: INR 2.1 (0.9-1.1); PROTHROMBIN TIME (PATIENT) 22.9 SECONDS (9.0-12.0)
[2016-11-26 07:46] LABS: BUN/CREATININE RATIO 9.5 (10-20); CREATININE 0.59 mg/dl (0.60-1.20); MAGNESIUM 1.8 mg/dl (1.8-2.4); POTASSIUM 3.9 mmol/L (3.5-5.1)
[2016-11-26] MEDS: HYDROmorphone INJ 1 MG/ML SYR IV PRN (07:49)
[2016-11-26] MEDS: INSULIN ASPART 100 UNITS/ML 3 ML PEN SC SCH ×4 (07:50→20:24)
[2016-11-26] MEDS: IPRATROPIUM BROMIDE/ALBUTEROL respimat INH INH SCH ×4 (07:50→20:26)
[2016-11-26] MEDS: GABAPENTIN 300 MG CAP PO SCH ×3 (07:51→20:26)
[2016-11-26] MEDS: TAMSULOSIN HCL 0.4 MG CAP PO SCH (07:51)
[2016-11-26 07:52] LABS: BASO % 0.3 %; BASO ABS # 0.03 K/uL (0-0.2); COMPLETE YES; EOS % 1.4 %; HEMATOCRIT 35.6 % (37-47); IG% 0.3 %; MEAN CELL VOLUME 89.2 fL (80-100); MEAN CORPUSCULAR HEMOGLOBIN 28.1 pg (25-34); MEAN CORPUSCULAR HGB CONC 31.5 g/dl (32-36); MEAN PLATELET VOLUME 10.3 fL (7.4-10.4); MONO % 6.9 %; NEUT % 71.1 %; PLATELET COUNT 210 K/uL (130-400); RED BLOOD COUNT 3.99 M/uL (4.2-5.4); WHITE BLOOD COUNT 10.99 K/uL (4.8-10.8)
[2016-11-26 08:48] LABS: CALCIUM 7.9 mg/dl (8.5-10.1)
--- NOTE | 2016-11-26 09:38 | DIAGNOSTIC IMAGING REPORT ---
KUB CLINICAL HISTORY: Left ureteral calculus COMPARISON STUDY: CT scan dated 11/25/2016 FINDINGS: There are no findings to indicate a bowel obstruction. There is indwelling IVC filter. There is contrast present within the bladder secondary to a prior CT scan. There are no calcifications suspicious for renal calculi although the renal shadows are largely obscured by overlying bowel gas and fecal material. The distal left ureteral calculus described on the recent CT scan is not visible. This this is possibly obscured by the patient's bladder or potentially the calculus has passed. IMPRESSION: 1. The recently described left UVJ calculus is not visualized. It is possible that it is being obscured by contrast within the bladder. Electronically signed by: Gregory White M.D. 11/26/2016 9:36 AM Dictated Date/Time: 11/26/2016 9:34 AM
--- NOTE | 2016-11-26 11:27 | Progress Note ---
Subjective Date of Service: Nov 26, 2016. Subjective Pt evaluation today including: conversation w/ patient, chart review Voiding: no voiding problems 66 year old female admitted with diffuse lower abdominal pain. CT scan revealed a right sided rectus hematoma/seroma and 5 mm left distal ureteral stone. Her pain is controlled with painmeds but she continues to have the diffuse pain mainly on the right side. She is afebrile and vital signs are stable. KUB this am was not able to show her distal stone as he bladder was full of contrast. She does not complain of significant left sided pain. White count is trending down and her creatinine has been low. Problem List Medical Problems: (1) Chest pain Status: Acute (2) Hydronephrosis, left Status: Acute (3) Intractable abdominal pain Status: Acute (4) Left ureteral calculus Status: Acute (5) Rectus sheath hematoma Status: Acute (6) Subtherapeutic international normalized ratio (INR) Status: Acute (7) Subtherapeutic phenytoin level Status: Acute (8) Upper GI bleeding Status: Acute Review of Systems Constitutional: No chills, No fever Eyes: No worsening of vision ENT: No hearing loss Respiratory: No cough, No shortness of breath Abdomen: + pain, + see HPI, No nausea, No vomiting Female : + urinary frequency, No dysuria Heme: No abnormal bleeding/bruising Objective Vital Signs Date Time Temp Pulse Resp B/P Pulse Ox O2 Delivery O2 Flow Rate FiO2 11/26/16 08:00 Nasal Cannula 2.0 11/26/16 08:00 Nasal Cannula 2.0 11/26/16 07:19 36.8 100 18 118/64 100 Room Air 11/26/16 00:46 96 11/26/16 00:31 36.2 110 20 113/65 97 2.0 11/25/16 21:23 96 Nasal Cannula 3.0 11/25/16 16:00 Nasal Cannula 3.0 11/25/16 14:57 36.4 100 18 105/63 94 Room Air 11/25/16 12:39 36.0 97 18 114/79 90 Room Air Physical Exam General Appearance: WD/WN, no apparent distress ENT: hearing grossly normal Neck: no JVD Respiratory/Chest: no respiratory distress, no accessory muscle use Neurologic/Psychiatric: alert, normal mood/affect, oriented x 3 Skin: normal color, warm/dry Laboratory Results Last 24 Hours Test 11/25/16 12:40 11/25/16 13:33 11/25/16 16:13 11/25/16 19:54 Urine Color YELLOW Urine Appearance CLEAR Urine pH 5.5 Urine Specific Anderson > 1.030 Urine Protein TRACE Urine Glucose (UA) TRACE Urine Ketones NEG Urine Occult Blood 3+ Urine Nitrite NEG Urine Bilirubin NEG Urine Urobilinogen NEG Urine Leukocyte Esterase NEG Urine WBC (Auto) 1-5 /hpf Urine RBC (Auto) >30 /hpf Urine Hyaline Casts (Auto) 0 /lpf Urine Epithelial Cells (Auto) 0-5 /lpf Urine Bacteria (Auto) NEG Urine Pathogenic Casts /lpf Bedside Glucose 134 mg/dl 217 mg/dl 204 mg/dl Test 11/26/16 06:50 11/26/16 07:37 White Blood Count 10.99 K/uL Red Blood Count 3.99 M/uL Hemoglobin 11.2 g/dL Hematocrit 35.6 % Mean Corpuscular Volume 89.2 fL Mean Corpuscular Hemoglobin 28.1 pg Mean Corpuscular Hemoglobin Concent 31.5 g/dl Platelet Count 210 K/uL Mean Platelet Volume 10.3 fL Neutrophils (%) (Auto) 71.1 % Lymphocytes (%) (Auto) 20.0 % Monocytes (%) (Auto) 6.9 % Eosinophils (%) (Auto) 1.4 % Basophils (%) (Auto) 0.3 % Neutrophils # (Auto) 7.82 K/uL Lymphocytes # (Auto) 2.20 K/uL Monocytes # (Auto) 0.76 K/uL Eosinophils # (Auto) 0.15 K/uL Basophils # (Auto) 0.03 K/uL RDW Standard Deviation 45.8 fL RDW Coefficient of Variation 13.8 % Immature Granulocyte % (Auto) 0.3 % Immature Granulocyte # (Auto) 0.03 K/uL Prothrombin Time 22.9 SECONDS Prothromb Time International Ratio 2.1 Sodium Level 143 mmol/L Potassium Level 3.9 mmol/L Chloride Level 111 mmol/L Carbon Dioxide Level 27 mmol/L Anion Gap 5.0 mmol/L Blood Urea Nitrogen 6 mg/dl Creatinine 0.59 mg/dl Est Creatinine Clear Calc Drug Dose 85.4 ml/min Estimated GFR () 109.2 Estimated GFR (Non- 94.2 BUN/Creatinine Ratio 9.5 Random Glucose 147 mg/dl Calcium Level 7.9 mg/dl Magnesium Level 1.8 mg/dl Bedside Glucose 122 mg/dl Assessment and Plan Left distal stone KUB does not show the distal stone however her bladder is full of contrast. Given her pain is controlled with pain meds would avoid stent placement for now. She is most worried about the right sided hematoma/seroma. Recommend following up next week in office with KUB prior to appt- if stone still visible will recommend ESWL. Our office will call to set up follow up. Checked PDMP website-pt had no available records. Thanks for the consult. Ok to d/c from urology standpoint.
[2016-11-26] MEDS: OXYCODONE/ACETAMINOPHEN 5-325 TAB PO PRN ×2 (13:13→20:25)
--- NOTE | 2016-11-26 13:28 | Surgery Consultation ---
Consultation Date of Consultation: Nov 26, 2016. Attending Physician: Amos Sky D.O. (Luz Covarrubias PA-C) History of Present Illness Soraya is a 66 year-old female who presented to emergency department with diffuse lower abdominal pain. Pain more significant on the left than the right. Had associated nausea and vomiting. Soraya states she was in [place] visiting family and was in the hospital for about 2 weeks and was told she had a hematoma of her rectus muscle on the right. States they did not do any procedures in regards to the hematoma. She also had a recent history of urinary tract infection and was on antibiotics. States she developed this sudden abdominal pain again, similar to when she went to the hospital in [place]. States pain was so bad she could barely eat. Denies of any trauma to the abdomen or any recent surgeries. She does take Coumadin for clotting disorder, history of pulmonary embolism x 6, and strokes. She does have IVC filter in place for the last 8 years. Soraya denies of any rectal bleeding or blood in stools. Soraya was also noted to have a left distal ureteral stone on CT scan of abdomen and pelvis Hemoglobin and hematocrit on admission were 14.1/48 and today are 11.2/35 respectively. (Luz Covarrubias PA-C) Past Medical/Surgical History Medical Problems: (1) Chest pain Status: Acute (2) Hydronephrosis, left Status: Acute (3) Intractable abdominal pain Status: Acute (4) Left ureteral calculus Status: Acute (5) Rectus sheath hematoma Status: Acute (6) Subtherapeutic international normalized ratio (INR) Status: Acute (7) Subtherapeutic phenytoin level Status: Acute (8) Upper GI bleeding Status: Acute (Luz Covarrubias PA-C) Family History Cancer Diabetes mellitus Hypertension (Luz Covarrubias PA-C) Cancer Diabetes mellitus Hypertension (Reshma Mcnally MD) Social History Smoking Status: Current Every Day Smoker (smokes one pack of cigarettes per day ) Alcohol Use: none Drug Use: marijuana Marital Status: Housing Status: lives with family, lives with significant other 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) (Luz Covarrubias PA-C) Allergies Coded Allergies: Bacitracin (Verified Allergy, Intermediate, facial swelling and erythema, 11/25/16) Sulfa Antibiotics (Verified Allergy, Intermediate, ???, 11/25/16) Home Medications Scheduled Desvenlafaxine Succinate Er (Pristiq), 50 MG PO BID Gabapentin (Neurontin), 300 MG PO TID Ipratropium-Albuterol (Combivent Respimat), 1 PUFF PO QID Metformin Hcl (Glucophage), 1,000 MG PO BID Warfarin Sod (Jantoven), 1 MG PO DAILY Warfarin Sodium (Warfarin Sodium), 6 MG PO DAILY Scheduled PRN Acetaminophen (Tylenol), 650 MG PO Q4H PRN for Pain or Fever Current Inpatient Medications Current Inpatient Medications Medications (Trade) Dose Ordered Sig/Sarina Route Start Time Stop Time Status Last Admin Dose Admin Ioversol (Optiray 320) 100 ml UD PRN IV 11/25/16 05:45 11/29/16 05:44 Hydralazine HCl (HydrALAZINE INJ) 10 mg Q6H PRN IV. 11/25/16 08:30 12/25/16 08:29 Acetaminophen (Tylenol Tab) 650 mg Q4H PRN PO 11/25/16 08:30 12/25/16 08:29 Ondansetron HCl (Zofran Inj) 4 mg Q6H PRN IV 11/25/16 08:30 12/25/16 08:29 11/25/16 23:50 4 MG Insulin Aspart (novoLOG ASPART) SLIDING SCALE G... ACHS SC 11/25/16 13:00 12/25/16 12:59 11/25/16 20:33 3 UNITS Gabapentin (Neurontin Cap) 300 mg TID PO 11/25/16 14:00 12/25/16 13:59 11/26/16 13:14 300 MG Miscellaneous Information (Order Awaiting Action) 1 ea QS N/A 11/25/16 16:00 12/25/16 15:59 Albuterol/ Ipratropium (Combivent Respimat Inh) 1 puffs QID INH 11/25/16 13:00 12/25/16 12:59 11/26/16 13:14 1 PUFFS Ioversol (Optiray 320) 100 ml UD PRN IV 11/25/16 08:45 11/29/16 08:44 Tamsulosin HCl (Flomax Cap) 0.4 mg QAM PO 11/26/16 09:00 12/26/16 08:59 11/26/16 07:51 0.4 MG Glucose (Glucose 40% Gel) 15-30 GRAMS 15 GRAMS... UD PRN PO 11/25/16 12:45 12/25/16 12:44 Glucose (Glucose Chew Tab) 4-8 Tablets 4 Tabl... UD PRN PO 11/25/16 12:45 12/25/16 12:44 Dextrose (Dextrose 50% 50ML Syringe) 25-50ML OF 50% DW IV FOR... UD PRN IV 11/25/16 12:45 12/25/16 12:44 Glucagon (Glucagon Inj) 1 mg UD PRN SQ 11/25/16 12:45 12/25/16 12:44 Oxycodone/ Acetaminophen (Percocet 5-325mg Tab) 2 tab Q4H PRN PO 11/26/16 12:00 12/10/16 11:59 11/26/16 13:13 2 TAB Warfarin Sodium (Coumadin Tab) 1 mg DAILY@1600 PO 11/26/16 16:00 12/26/16 15:59 Warfarin Sodium (Coumadin Tab) 6 mg DAILY@1600 PO 11/26/16 16:00 12/26/16 15:59 (Luz Covarrubias ., PA-C) Review of Systems Constitutional: No chills, No fever Respiratory: No shortness of breath Cardiovascular: No chest pain Abdomen: + nausea, + pain (lower abdominal pain , bilaterally more so on left) , + vomiting Genitourinary - Female: No dysuria Hematologic / Lymphatic: + clotting problems, No abnormal bleeding/bruising ( Luz Covarrubias ., PA-C) Physical Exam Date Time Temp Pulse Resp B/P Pulse Ox O2 Delivery O2 Flow Rate FiO2 11/26/16 08:00 Nasal Cannula 2.0 11/26/16 08:00 Nasal Cannula 2.0 11/26/16 07:19 36.8 100 18 118/64 100 Room Air 11/26/16 00:46 96 11/26/16 00:31 36.2 110 20 113/65 97 2.0 11/25/16 21:23 96 Nasal Cannula 3.0 11/25/16 16:00 Nasal Cannula 3.0 11/25/16 14:57 36.4 100 18 105/63 94 Room Air General Appearance: WD/WN, no apparent distress Head: normocephalic, atraumatic Eyes: sclerae normal ENT: hearing grossly normal Respiratory/Chest: no respiratory distress, no accessory muscle use Cardiovascular: regular rate, rhythm Abdomen/GI: soft, no organomegaly, no pulsatile mass, + tenderness (in lower abdomen, no guarding, rigidity, or peritonitis) Neurologic/Psych: alert, oriented x 3, + pertinent finding (upset, agitated) Skin: normal color, warm/dry, no rash (Luz Covarrubias ., TORI) Laboratory Results Last 24 Hours Test 11/25/16 13:33 11/25/16 16:13 11/25/16 19:54 11/26/16 06:50 Bedside Glucose 134 mg/dl 217 mg/dl 204 mg/dl White Blood Count 10.99 K/uL Red Blood Count 3.99 M/uL Hemoglobin 11.2 g/dL Hematocrit 35.6 % Mean Corpuscular Volume 89.2 fL Mean Corpuscular Hemoglobin 28.1 pg Mean Corpuscular Hemoglobin Concent 31.5 g/dl Platelet Count 210 K/uL Mean Platelet Volume 10.3 fL Neutrophils (%) (Auto) 71.1 % Lymphocytes (%) (Auto) 20.0 % Monocytes (%) (Auto) 6.9 % Eosinophils (%) (Auto) 1.4 % Basophils (%) (Auto) 0.3 % Neutrophils # (Auto) 7.82 K/uL Lymphocytes # (Auto) 2.20 K/uL Monocytes # (Auto) 0.76 K/uL Eosinophils # (Auto) 0.15 K/uL Basophils # (Auto) 0.03 K/uL RDW Standard Deviation 45.8 fL RDW Coefficient of Variation 13.8 % Immature Granulocyte % (Auto) 0.3 % Immature Granulocyte # (Auto) 0.03 K/uL Prothrombin Time 22.9 SECONDS Prothromb Time International Ratio 2.1 Sodium Level 143 mmol/L Potassium Level 3.9 mmol/L Chloride Level 111 mmol/L Carbon Dioxide Level 27 mmol/L Anion Gap 5.0 mmol/L Blood Urea Nitrogen 6 mg/dl Creatinine 0.59 mg/dl Est Creatinine Clear Calc Drug Dose 85.4 ml/min Estimated GFR () 109.2 Estimated GFR (Non- 94.2 BUN/Creatinine Ratio 9.5 Random Glucose 147 mg/dl Calcium Level 7.9 mg/dl Magnesium Level 1.8 mg/dl Test 11/26/16 07:37 11/26/16 11:12 Bedside Glucose 122 mg/dl 112 mg/dl ABDOMEN AND PELVIS CT WITH IV CONTRAST CT DOSE: 259.54 mGy.cm HISTORY: Pain bilateral abdominal lower pain TECHNIQUE: Multiaxial CT images of the abdomen and pelvis were performed following the use of intravenous contrast. COMPARISON STUDY: A1 2013 FINDINGS: 5 mm obstructing calculus distal left ureter slightly proximal to the left ureterovesical junction. Mild left hydroureteronephrosis. Bowel pattern is nonobstructive. Liver spleen and pancreas are unremarkable. Fluid collection within the right rectus musculature at its inferior margin measuring 6 x 4.5 x 8 cm. This appears represent a rectus hematoma versus seroma. Several uterine myometrial calcifications. IMPRESSION: 1. Obstructing calculus distal left ureter measuring 5 mm. 2. Mild left hydroureteronephrosis. 3. Lower right rectus hematoma/seroma. 4. Nonobstructive bowel pattern. (Luz Covarrubias ., PA-C) Assessment & Plan Hematoma of the right Rectus muscle - H&H stable - no evidence of active bleeding - leukocytosis improving History of Clotting disorder and IVC filter placement Plan: Continue to monitor H&H Hold Coumadin and any anticoagulants Once INR normalized, recommend CT Guided aspiration of hematoma Will continue to follow Dr. Mcnally has seen and examined patient, agrees with above stated findings and treatment plan. (Luz Covarrubias ., PA-C) Pt was seen and I personally interviewed and performed a physical exam. Her abdomen is diffusely tender, no guarding, no palpable mass. Tenderness is worse over the right lower rectus muscle. Imaging reviewed. Has a near 8 cm right rectus fluid collection - likely liquefying hematoma. This is believed to have been caused by coughing, she is on coumadin. Same area as she had while in [facility], unclear if there is a change in size as previous records are not available currently. Explained that there is no surgical intervention for rectus hematomas. She needs to be off her anticoagulation at least temporarily (she has an IVC filter in place). Explained that this increases her risk of clotting again. If hematoma remains symptomatic and her INR normalizes, can consider CT guided drainage (this will likely be incomplete but relieving the pressure may help her symptoms). If evidence of continued bleeding (none present currently), consider interventional radiology for embolization of inferior epigastrics. All questions answered. She is anxious to try CT drainage. (Reshma Mcnally MD)
--- NOTE | 2016-11-26 13:59 | Hospitalist Progress Note ---
Hospitalist Progress Note Date of Service Nov 26, 2016. (Blaire Mosquera PA-C) Subjective Pt evaluation today including: conversation w/ patient, physical exam, chart review, lab review, conversation w/ independent beauty consultant, review of inpatient medication list Patient continues to complain of lower abdominal pain. She also noticed some right lower back pain. She denies any injury. She does have chronic back pain. She thinks it may be slightly worse. She denies any fever or chills. No dysuria or hematuria. She does not think that she passed the stone. She has had no further nausea. Additional Comments: 6 system review negative. Please see pertinent positives in the history of present illness section. (lBaire Mosquera PA-C) Objective Vital Signs Date Time Temp Pulse Resp B/P Pulse Ox O2 Delivery O2 Flow Rate FiO2 11/26/16 08:00 Nasal Cannula 2.0 11/26/16 08:00 Nasal Cannula 2.0 11/26/16 07:19 36.8 100 18 118/64 100 Room Air 11/26/16 00:46 96 11/26/16 00:31 36.2 110 20 113/65 97 2.0 11/25/16 21:23 96 Nasal Cannula 3.0 11/25/16 16:00 Nasal Cannula 3.0 11/25/16 14:57 36.4 100 18 105/63 94 Room Air (Blaire Mosquera PA-C) Physical Exam General Appearance: no apparent distress Eyes: EOMI Neck: no JVD Respiratory/Chest: lungs clear Cardiovascular: regular rate, rhythm, + systolic murmur (faint systolic murmur noted) Abdomen: normal bowel sounds, non tender, soft Extremities: non-tender, no pedal edema Neurologic/Psychiatric: no motor/sensory deficits, oriented x 3 Skin: warm/dry (Blaire Mosquera PA-C) Laboratory Results 11/26/16 06:50 Red Blood Count 3.99, Mean Corpuscular Volume 89.2, Mean Corpuscular Hemoglobin 28.1, Mean Corpuscular Hemoglobin Concent 31.5, Mean Platelet Volume 10.3, Neutrophils (%) (Auto) 71.1, Lymphocytes (%) (Auto) 20.0, Monocytes (%) (Auto) 6.9, Eosinophils (%) (Auto) 1.4, Basophils (%) (Auto) 0.3, Neutrophils # (Auto) 7.82, Lymphocytes # (Auto) 2.20, Monocytes # (Auto) 0.76, Eosinophils # (Auto) 0.15, Basophils # (Auto) 0.03 11/26/16 06:50 Test 11/26/16 06:50 11/26/16 11:12 White Blood Count 10.99 K/uL (4.8-10.8) Red Blood Count 3.99 M/uL (4.2-5.4) Hemoglobin 11.2 g/dL (12.0-16.0) Hematocrit 35.6 % (37-47) Mean Corpuscular Volume 89.2 fL (80-100) Mean Corpuscular Hemoglobin 28.1 pg (25-34) Mean Corpuscular Hemoglobin Concent 31.5 g/dl (32-36) Platelet Count 210 K/uL (130-400) Mean Platelet Volume 10.3 fL (7.4-10.4) Neutrophils (%) (Auto) 71.1 % Lymphocytes (%) (Auto) 20.0 % Monocytes (%) (Auto) 6.9 % Eosinophils (%) (Auto) 1.4 % Basophils (%) (Auto) 0.3 % Neutrophils # (Auto) 7.82 K/uL (1.4-6.5) Lymphocytes # (Auto) 2.20 K/uL (1.2-3.4) Monocytes # (Auto) 0.76 K/uL (0.11-0.59) Eosinophils # (Auto) 0.15 K/uL (0-0.5) Basophils # (Auto) 0.03 K/uL (0-0.2) RDW Standard Deviation 45.8 fL (36.4-46.3) RDW Coefficient of Variation 13.8 % (11.5-14.5) Immature Granulocyte % (Auto) 0.3 % Immature Granulocyte # (Auto) 0.03 K/uL (0.00-0.02) Prothrombin Time 22.9 SECONDS (9.0-12.0) Prothromb Time International Ratio 2.1 (0.9-1.1) Anion Gap 5.0 mmol/L (3-11) Est Creatinine Clear Calc Drug Dose 85.4 ml/min Estimated GFR () 109.2 Estimated GFR (Non- 94.2 BUN/Creatinine Ratio 9.5 (10-20) Calcium Level 7.9 mg/dl (8.5-10.1) Magnesium Level 1.8 mg/dl (1.8-2.4) Bedside Glucose 112 mg/dl (70-90) Last 24 Hours Test 11/25/16 16:13 11/25/16 19:54 11/26/16 06:50 11/26/16 07:37 Bedside Glucose 217 mg/dl 204 mg/dl 122 mg/dl White Blood Count 10.99 K/uL Red Blood Count 3.99 M/uL Hemoglobin 11.2 g/dL Hematocrit 35.6 % Mean Corpuscular Volume 89.2 fL Mean Corpuscular Hemoglobin 28.1 pg Mean Corpuscular Hemoglobin Concent 31.5 g/dl Platelet Count 210 K/uL Mean Platelet Volume 10.3 fL Neutrophils (%) (Auto) 71.1 % Lymphocytes (%) (Auto) 20.0 % Monocytes (%) (Auto) 6.9 % Eosinophils (%) (Auto) 1.4 % Basophils (%) (Auto) 0.3 % Neutrophils # (Auto) 7.82 K/uL Lymphocytes # (Auto) 2.20 K/uL Monocytes # (Auto) 0.76 K/uL Eosinophils # (Auto) 0.15 K/uL Basophils # (Auto) 0.03 K/uL RDW Standard Deviation 45.8 fL RDW Coefficient of Variation 13.8 % Immature Granulocyte % (Auto) 0.3 % Immature Granulocyte # (Auto) 0.03 K/uL Prothrombin Time 22.9 SECONDS Prothromb Time International Ratio 2.1 Sodium Level 143 mmol/L Potassium Level 3.9 mmol/L Chloride Level 111 mmol/L Carbon Dioxide Level 27 mmol/L Anion Gap 5.0 mmol/L Blood Urea Nitrogen 6 mg/dl Creatinine 0.59 mg/dl Est Creatinine Clear Calc Drug Dose 85.4 ml/min Estimated GFR () 109.2 Estimated GFR (Non- 94.2 BUN/Creatinine Ratio 9.5 Random Glucose 147 mg/dl Calcium Level 7.9 mg/dl Magnesium Level 1.8 mg/dl Test 11/26/16 11:12 Bedside Glucose 112 mg/dl (Blaire Mosquera, PARejiC) Assessment and Plan 66-year-old female presented to the emergency department with lower abdominal pain, nausea, vomiting and diarrhea for the last several days. Also notes some shortness of breath. Workup in the emergency department is significant for a 5 mm left ureteral obstructing stone and a hematoma in the rectus musculature of the abdomen. Ureteral stone -Repeat CT today did not show any signs of a stone. She appears fairly comfortable on exam. My guess is that she probably passed the stone. -Transition Dilaudid IV to Percocet 1-2 tabs every 4 hours as needed for pain -Continue Flomax -Continue to strain urine -Discussed with [id number] in the office as an outpatient Rectus muscle hematoma/abdominal pain -pt c/o severe pain but is resting comfortably on exam -Lengthy discussion with the patient today. This has been present since the end of September when she was hospitalized at a hospital in [place]. She has also seen her primary care physician in follow-up. He is aware of the hematoma. -General surgery consult-this may be contributing to her pain -I will continue Coumadin for now as the risk of new PE and DVT are very high Shortness of patient is not hypoxic today. -CT of the chest negative -ultrasound of the lower extremities bilaterally negative for DVT DM-BSG's reasonable -home dose of metformin 1000 mg po BID will need to be held for [address] -Continue insulin sliding scale HTN-no formal dx. 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
[2016-11-26 14:49] VITALS: BP 128/58; PULSE 87; TEMP 36.7; O2SAT 97
[2016-11-26 16:00] VITALS: O2SAT 97
[2016-11-26] MEDS ORDERED: WARFARIN SOD 1 MG TAB PO SCH (16:00)
[2016-11-26] MEDS ORDERED: WARFARIN SOD 6 MG TAB PO SCH (16:00)
[2016-11-26 23:47] VITALS: BP 117/54; PULSE 91; TEMP 36.9; O2SAT 93
[2016-11-27] VITALS (7 sets, daily range): BP systolic 148–164; BP diastolic 68–82; PULSE 82–101; TEMP 36.7–37.3; O2SAT 93–98
[2016-11-27 06:35] LABS: BASO % 0.5 %; BASO ABS # 0.03 K/uL (0-0.2); COMPLETE YES; EOS % 2.8 %; HEMATOCRIT 33.6 % (37-47); IG% 0.2 %; LYMPH % 39.2 %; LYMPH ABS # 2.53 K/uL (1.2-3.4); MEAN CELL VOLUME 89.8 fL (80-100); MEAN CORPUSCULAR HEMOGLOBIN 28.6 pg (25-34); MEAN CORPUSCULAR HGB CONC 31.8 g/dl (32-36); MONO % 6.8 %; NEUT % 50.5 %; PLATELET COUNT 181 K/uL (130-400); RED BLOOD COUNT 3.74 M/uL (4.2-5.4); WHITE BLOOD COUNT 6.45 K/uL (4.8-10.8)
[2016-11-27 06:45] LABS: INR 1.3 (0.9-1.1); PROTHROMBIN TIME (PATIENT) 13.7 SECONDS (9.0-12.0)
[2016-11-27 07:12] LABS: BUN/CREATININE RATIO 9.3 (10-20); CALCIUM 8.1 mg/dl (8.5-10.1); CREATININE 0.54 mg/dl (0.60-1.20); POTASSIUM 3.6 mmol/L (3.5-5.1)
[2016-11-27] MEDS: INSULIN ASPART 100 UNITS/ML 3 ML PEN SC SCH ×4 (07:49→21:00)
[2016-11-27] MEDS: IPRATROPIUM BROMIDE/ALBUTEROL respimat INH INH SCH ×4 (08:49→21:06)
[2016-11-27] MEDS: TAMSULOSIN HCL 0.4 MG CAP PO SCH (08:50)
[2016-11-27] MEDS: GABAPENTIN 300 MG CAP PO SCH ×3 (08:50→21:06)
[2016-11-27] MEDS: OXYCODONE/ACETAMINOPHEN 5-325 TAB PO PRN ×3 (09:36→21:08)
--- NOTE | 2016-11-27 11:02 | Progress Note ---
Progress Note Date of Service Nov 27, 2016. Progress Note Only pain is on the right side - no renal colic - no voiding complaints NAD AAOx3 no resp distress rrr abd soft, mildly tender on the left no edema A/P: distal left ureteral stone; right rectus hematoma/collection - no immediate need for intervention in regard to the stone - will need out pt f/u - URS/laser litho would likely be preferential to ESWL given her long hx of coagulopathy and need for anticoagulation
--- NOTE | 2016-11-27 11:09 | Surgery Progress Note ---
Surgery Progress Note Date of Service Nov 27, 2016. Subjective Still with RLQ pain which is controlled with pain medications. Hungry. Otherwise no new complaints. Objective Vital Signs: Date Time Temp Pulse Resp B/P Pulse Ox O2 Delivery O2 Flow Rate FiO2 11/27/16 10:09 93 Room Air 1.5 Nasal Cannula 11/27/16 07:45 Room Air 11/27/16 07:35 36.7 82 13 150/82 93 Room Air 11/27/16 00:00 98 Room Air 11/26/16 23:47 36.9 91 20 117/54 93 Room Air 11/26/16 16:00 97 Nasal Cannula 2.0 11/26/16 14:49 36.7 87 18 128/58 97 Nasal Cannula 3.0 General Appearance: WD/WN, no apparent distress Head: normocephalic, atraumatic Respiratory/Chest: no respiratory distress Abdomen: normal bowel sounds, non distended, soft, + tenderness (RLQ over hematoma (not palpable)) Laboratory Results: Results Past 24 Hours Test 11/26/16 11:12 11/26/16 16:25 11/26/16 20:14 11/27/16 06:21 Range/Units Bedside Glucose 112 162 146 70-90 mg/dl White Blood Count 6.45 4.8-10.8 K/uL Red Blood Count 3.74 4.2-5.4 M/uL Hemoglobin 10.7 12.0-16.0 g/dL Hematocrit 33.6 37-47 % Mean Corpuscular Volume 89.8 80-100 fL Mean Corpuscular Hemoglobin 28.6 25-34 pg Mean Corpuscular Hemoglobin Concent 31.8 32-36 g/dl Platelet Count 181 130-400 K/uL Mean Platelet Volume 10.0 7.4-10.4 fL Neutrophils (%) (Auto) 50.5 % Lymphocytes (%) (Auto) 39.2 % Monocytes (%) (Auto) 6.8 % Eosinophils (%) (Auto) 2.8 % Basophils (%) (Auto) 0.5 % Neutrophils # (Auto) 3.26 1.4-6.5 K/uL Lymphocytes # (Auto) 2.53 1.2-3.4 K/uL Monocytes # (Auto) 0.44 0.11-0.59 K/uL Eosinophils # (Auto) 0.18 0-0.5 K/uL Basophils # (Auto) 0.03 0-0.2 K/uL RDW Standard Deviation 45.5 36.4-46.3 fL RDW Coefficient of Variation 13.6 11.5-14.5 % Immature Granulocyte % (Auto) 0.2 % Immature Granulocyte # (Auto) 0.01 0.00-0.02 K/uL Prothrombin Time 13.7 9.0-12.0 SECONDS Prothromb Time International Ratio 1.3 0.9-1.1 Sodium Level 145 136-145 mmol/L Potassium Level 3.6 3.5-5.1 mmol/L Chloride Level 111 98-107 mmol/L Carbon Dioxide Level 29 21-32 mmol/L Anion Gap 5.0 3-11 mmol/L Blood Urea Nitrogen 5 7-18 mg/dl Creatinine 0.54 0.60-1.20 mg/dl Est Creatinine Clear Calc Drug Dose 93.3 ml/min Estimated GFR () 112.4 Estimated GFR (Non- 97.0 BUN/Creatinine Ratio 9.3 10-20 Random Glucose 131 70-99 mg/dl Calcium Level 8.1 8.5-10.1 mg/dl Test 11/27/16 07:42 Range/Units Bedside Glucose 123 70-90 mg/dl Assessment & Plan 66 yr old with left renal stone (managed by urology) and right rectus hematoma ( chronic) in setting of coumadin use (also has IVC filter in place). INR now normal. Given how symptomatic she is, would recommend CT guided aspiration of the fluid collection. Given the chronicity of the hematoma, a fair amount may be able to be removed under aspiration although she understands this is not likely to clear the hematoma completely. Once procedure completed, OK to consider restarting her coumadin. OK to advance to regular diet.
--- NOTE | 2016-11-27 11:28 | Progress Note ---
Subjective Date of Service: Nov 27, 2016. Subjective Pt evaluation today including: conversation w/ patient, physical exam, chart review, lab review, review of studies, review of inpatient medication list Pt reports abd pain is about the same 03/31 No fevers or chills No acute events overnight Awaiting aspiration procedure Problem List Medical Problems: (1) Chest pain Status: Acute (2) Hydronephrosis, left Status: Acute (3) Intractable abdominal pain Status: Acute (4) Left ureteral calculus Status: Acute (5) Rectus sheath hematoma Status: Acute (6) Subtherapeutic international normalized ratio (INR) Status: Acute (7) Subtherapeutic phenytoin level Status: Acute (8) Upper GI bleeding Status: Acute Review of Systems Constitutional: No chills, No fever Respiratory: No cough, No dyspnea on exertion, No shortness of breath, No sputum, No wheezing Cardiac: No chest pain, No orthopnea Abdomen: + pain, No constipation, No diarrhea, No nausea, No vomiting Musculoskeletal: No joint pain, No muscle pain Female : No dysuria, No urinary frequency Objective Vital Signs Date Time Temp Pulse Resp B/P Pulse Ox O2 Delivery O2 Flow Rate FiO2 11/27/16 10:09 93 Room Air 1.5 Nasal Cannula 11/27/16 07:45 Room Air 11/27/16 07:35 36.7 82 13 150/82 93 Room Air 11/27/16 00:00 98 Room Air 11/26/16 23:47 36.9 91 20 117/54 93 Room Air 11/26/16 16:00 97 Nasal Cannula 2.0 11/26/16 14:49 36.7 87 18 128/58 97 Nasal Cannula 3.0 Physical Exam General Appearance: WD/WN, + mild distress Neck: supple, no adenopathy Respiratory/Chest: lungs clear, normal breath sounds Cardiovascular: no edema, no gallop Abdomen: soft, + tenderness Neurologic/Psychiatric: alert, oriented x 3 Laboratory Results Last 24 Hours Test 11/26/16 16:25 11/26/16 20:14 11/27/16 06:21 11/27/16 07:42 Bedside Glucose 162 mg/dl 146 mg/dl 123 mg/dl White Blood Count 6.45 K/uL Red Blood Count 3.74 M/uL Hemoglobin 10.7 g/dL Hematocrit 33.6 % Mean Corpuscular Volume 89.8 fL Mean Corpuscular Hemoglobin 28.6 pg Mean Corpuscular Hemoglobin Concent 31.8 g/dl Platelet Count 181 K/uL Mean Platelet Volume 10.0 fL Neutrophils (%) (Auto) 50.5 % Lymphocytes (%) (Auto) 39.2 % Monocytes (%) (Auto) 6.8 % Eosinophils (%) (Auto) 2.8 % Basophils (%) (Auto) 0.5 % Neutrophils # (Auto) 3.26 K/uL Lymphocytes # (Auto) 2.53 K/uL Monocytes # (Auto) 0.44 K/uL Eosinophils # (Auto) 0.18 K/uL Basophils # (Auto) 0.03 K/uL RDW Standard Deviation 45.5 fL RDW Coefficient of Variation 13.6 % Immature Granulocyte % (Auto) 0.2 % Immature Granulocyte # (Auto) 0.01 K/uL Prothrombin Time 13.7 SECONDS Prothromb Time International Ratio 1.3 Sodium Level 145 mmol/L Potassium Level 3.6 mmol/L Chloride Level 111 mmol/L Carbon Dioxide Level 29 mmol/L Anion Gap 5.0 mmol/L Blood Urea Nitrogen 5 mg/dl Creatinine 0.54 mg/dl Est Creatinine Clear Calc Drug Dose 93.3 ml/min Estimated GFR () 112.4 Estimated GFR (Non- 97.0 BUN/Creatinine Ratio 9.3 Random Glucose 131 mg/dl Calcium Level 8.1 mg/dl Assessment and Plan 66-year-old female presented to the emergency department with lower abdominal pain, nausea, vomiting and diarrhea for the last several days. Also notes some shortness of breath. Workup in the emergency department is significant for a 5 mm left ureteral obstructing stone and a hematoma in the rectus musculature of the abdomen. Ureteral stone -Repeat CT today did not show any signs of a stone. She appears fairly comfortable on exam. My guess is that she probably passed the stone. -Transition Dilaudid IV to Percocet 1-2 tabs every 4 hours as needed for pain -Continue Flomax -Continue to strain urine -Discussed with [id number] in the office as an outpatient Rectus muscle hematoma/abdominal pain -pt c/o severe pain but is resting comfortably on exam -Lengthy discussion with the patient today. This has been present since the end of September when she was hospitalized at a hospital in [place]. She has also seen her primary care physician in follow-up. He is aware of the hematoma. -General surgery consult-this may be contributing to her pain -Coumadin dced, INR appropriate for CT guided aspirate of hematoma Shortness of patient is not hypoxic today. -CT of the chest negative -ultrasound of the lower extremities bilaterally negative for DVT DM-BSG's reasonable -home dose of metformin 1000 mg po BID will need to be held for [address] -Continue insulin sliding scale HTN-no formal dx. 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
[2016-11-28] MEDS: OXYCODONE/ACETAMINOPHEN 5-325 TAB PO PRN ×4 (01:50→18:05)
[2016-11-28] MEDS ORDERED: NURSING VERBAL MED ORDER ONE ×2 (04:45→19:45)
[2016-11-28] MEDS ORDERED: ONDANSETRON 8MG OD TAB PO PRN (05:00)
[2016-11-28 06:42] LABS: BASO % 0.3 %; BASO ABS # 0.02 K/uL (0-0.2); COMPLETE YES; EOS % 3.4 %; HEMATOCRIT 38.3 % (37-47); IG% 0.3 %; LYMPH % 30.7 %; LYMPH ABS # 1.88 K/uL (1.2-3.4); MEAN CELL VOLUME 88.2 fL (80-100); MEAN CORPUSCULAR HGB CONC 32.9 g/dl (32-36); MEAN PLATELET VOLUME 10.1 fL (7.4-10.4); NEUT % 57.3 %; PLATELET COUNT 214 K/uL (130-400); RED BLOOD COUNT 4.34 M/uL (4.2-5.4); WHITE BLOOD COUNT 6.12 K/uL (4.8-10.8)
[2016-11-28 06:47] LABS: PROTHROMBIN TIME (PATIENT) 11.2 SECONDS (9.0-12.0)
[2016-11-28] MEDS: GABAPENTIN 300 MG CAP PO SCH ×3 (07:34→21:19)
[2016-11-28] MEDS: IPRATROPIUM BROMIDE/ALBUTEROL respimat INH INH SCH ×4 (07:35→21:18)
[2016-11-28] MEDS: TAMSULOSIN HCL 0.4 MG CAP PO SCH (07:35)
[2016-11-28 07:43] VITALS: BP 153/77; PULSE 99; TEMP 36.7; O2SAT 94
[2016-11-28] MEDS: INSULIN ASPART 100 UNITS/ML 3 ML PEN SC SCH ×4 (08:20→21:18)
--- NOTE | 2016-11-28 11:07 | Progress Note ---
Subjective Date of Service: Nov 28, 2016. Subjective Pt evaluation today including: conversation w/ patient, physical exam, chart review, lab review, review of studies, review of inpatient medication list RLQ pain slightly improved No fevers chills Tolerating PO meds Tentative procedure for tomorrow Problem List Medical Problems: (1) Chest pain Status: Acute (2) Hydronephrosis, left Status: Acute (3) Intractable abdominal pain Status: Acute (4) Left ureteral calculus Status: Acute (5) Rectus sheath hematoma Status: Acute (6) Subtherapeutic international normalized ratio (INR) Status: Acute (7) Subtherapeutic phenytoin level Status: Acute (8) Upper GI bleeding Status: Acute Review of Systems Constitutional: No chills, No fever Respiratory: No cough, No shortness of breath, No sputum, No wheezing Cardiac: No chest pain, No orthopnea Abdomen: + pain, No diarrhea, No nausea, No vomiting Musculoskeletal: No joint pain, No muscle pain Female : No dysuria, No urinary frequency Objective Vital Signs Date Time Temp Pulse Resp B/P Pulse Ox O2 Delivery O2 Flow Rate FiO2 11/28/16 08:00 Room Air 11/28/16 07:43 36.7 99 16 153/77 94 Room Air 11/28/16 00:00 Room Air 11/27/16 23:58 37.3 101 16 155/68 94 Room Air 11/27/16 16:00 94 Room Air 11/27/16 15:00 36.9 89 14 164/74 94 Room Air 11/27/16 11:30 37.0 86 14 148/76 96 Nasal Cannula 1.5 Physical Exam General Appearance: WD/WN, no apparent distress Neck: supple, no adenopathy Respiratory/Chest: lungs clear, normal breath sounds Cardiovascular: no edema, no gallop Abdomen: soft, + tenderness Neurologic/Psychiatric: alert, normal mood/affect Laboratory Results Last 24 Hours Test 11/27/16 11:28 11/27/16 16:09 11/27/16 20:18 11/28/16 06:23 Bedside Glucose 113 mg/dl 118 mg/dl 119 mg/dl White Blood Count 6.12 K/uL Red Blood Count 4.34 M/uL Hemoglobin 12.6 g/dL Hematocrit 38.3 % Mean Corpuscular Volume 88.2 fL Mean Corpuscular Hemoglobin 29.0 pg Mean Corpuscular Hemoglobin Concent 32.9 g/dl Platelet Count 214 K/uL Mean Platelet Volume 10.1 fL Neutrophils (%) (Auto) 57.3 % Lymphocytes (%) (Auto) 30.7 % Monocytes (%) (Auto) 8.0 % Eosinophils (%) (Auto) 3.4 % Basophils (%) (Auto) 0.3 % Neutrophils # (Auto) 3.50 K/uL Lymphocytes # (Auto) 1.88 K/uL Monocytes # (Auto) 0.49 K/uL Eosinophils # (Auto) 0.21 K/uL Basophils # (Auto) 0.02 K/uL RDW Standard Deviation 43.3 fL RDW Coefficient of Variation 13.2 % Immature Granulocyte % (Auto) 0.3 % Immature Granulocyte # (Auto) 0.02 K/uL Prothrombin Time 11.2 SECONDS Prothromb Time International Ratio 1.0 Test 11/28/16 07:25 Bedside Glucose 239 mg/dl Assessment and Plan 66-year-old female presented to the emergency department with lower abdominal pain, nausea, vomiting and diarrhea for the last several days. Also notes some shortness of breath. Workup in the emergency department is significant for a 5 mm left ureteral obstructing stone and a hematoma in the rectus musculature of the abdomen. Ureteral stone -Repeat CT today did not show any signs of a stone. She appears fairly comfortable on exam. My guess is that she probably passed the stone. -Transition Dilaudid IV to Percocet 1-2 tabs every 4 hours as needed for pain -Continue Flomax -Continue to strain urine -Discussed with [id number] in the office as an outpatient Rectus muscle hematoma/abdominal pain -pt c/o severe pain but is resting comfortably on exam -Lengthy discussion with the patient today. This has been present since the end of September when she was hospitalized at a hospital in [place]. She has also seen her primary care physician in follow-up. He is aware of the hematoma. -General surgery consult-this may be contributing to her pain -Coumadin dced, INR appropriate for CT guided aspirate of hematoma Shortness of patient is not hypoxic today. -CT of the chest negative -ultrasound of the lower extremities bilaterally negative for DVT DM-BSG's reasonable -home dose of metformin 1000 mg po BID will need to be held for [address] -Continue insulin sliding scale HTN-no formal dx. 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
--- NOTE | 2016-11-28 11:38 | Surgery Progress Note ---
Surgery Progress Note Date of Service Nov 28, 2016. Subjective More nausea today. Still sore in the RLQ requiring pain medications. No bowel movement since hospital admission. Objective Vital Signs: Date Time Temp Pulse Resp B/P Pulse Ox O2 Delivery O2 Flow Rate FiO2 11/28/16 08:00 Room Air 11/28/16 07:43 36.7 99 16 153/77 94 Room Air 11/28/16 00:00 Room Air 11/27/16 23:58 37.3 101 16 155/68 94 Room Air 11/27/16 16:00 94 Room Air 11/27/16 15:00 36.9 89 14 164/74 94 Room Air General Appearance: WD/WN, no apparent distress Neck: supple Respiratory/Chest: no respiratory distress, no accessory muscle use Abdomen: normal bowel sounds, non distended, soft, + tenderness (RLQ over hematoma) Laboratory Results: Results Past 24 Hours Test 11/27/16 16:09 11/27/16 20:18 11/28/16 06:23 11/28/16 07:25 Range/Units Bedside Glucose 118 119 239 70-90 mg/dl White Blood Count 6.12 4.8-10.8 K/uL Red Blood Count 4.34 4.2-5.4 M/uL Hemoglobin 12.6 12.0-16.0 g/dL Hematocrit 38.3 37-47 % Mean Corpuscular Volume 88.2 80-100 fL Mean Corpuscular Hemoglobin 29.0 25-34 pg Mean Corpuscular Hemoglobin Concent 32.9 32-36 g/dl Platelet Count 214 130-400 K/uL Mean Platelet Volume 10.1 7.4-10.4 fL Neutrophils (%) (Auto) 57.3 % Lymphocytes (%) (Auto) 30.7 % Monocytes (%) (Auto) 8.0 % Eosinophils (%) (Auto) 3.4 % Basophils (%) (Auto) 0.3 % Neutrophils # (Auto) 3.50 1.4-6.5 K/uL Lymphocytes # (Auto) 1.88 1.2-3.4 K/uL Monocytes # (Auto) 0.49 0.11-0.59 K/uL Eosinophils # (Auto) 0.21 0-0.5 K/uL Basophils # (Auto) 0.02 0-0.2 K/uL RDW Standard Deviation 43.3 36.4-46.3 fL RDW Coefficient of Variation 13.2 11.5-14.5 % Immature Granulocyte % (Auto) 0.3 % Immature Granulocyte # (Auto) 0.02 0.00-0.02 K/uL Prothrombin Time 11.2 9.0-12.0 SECONDS Prothromb Time International Ratio 1.0 0.9-1.1 Test 11/28/16 11:25 Range/Units Bedside Glucose 177 70-90 mg/dl Assessment & Plan 66 yr old with left renal stone (managed by urology) and right rectus hematoma ( chronic) in setting of coumadin use (also has IVC filter in place). INR now normal. Given how symptomatic she is, would recommend CT guided aspiration of the fluid collection. Given the chronicity of the hematoma, a fair amount may be able to be removed under aspiration although she understands this is not likely to clear the hematoma completely. Once procedure completed, OK to consider restarting her coumadin. OK to advance to regular diet. Nausea may be secondary to now bowel movement - she would like to try dulcolax which has worked for her in past (order placed).
[2016-11-28] MEDS ORDERED: BISACODYL 5 MG TABEC PO PRN (11:45)
[2016-11-28 15:37] VITALS: BP 141/65; PULSE 107; TEMP 36.7; O2SAT 95
[2016-11-28 16:00] VITALS: O2SAT 98
[2016-11-28] MEDS: ONDANSETRON INJ 2 MG/ML 2 ML VIAL IV PRN (18:39)
[2016-11-28] MEDS ORDERED: NURSING DECISION MEDICATION ORDER SCH (18:45)
[2016-11-28] MEDS ORDERED: TRAZODONE HCL 100 MG TAB PO PRN (20:00)
[2016-11-29 00:33] VITALS: BP 153/65; PULSE 103; TEMP 36.7; O2SAT 94
[2016-11-29] MEDS ORDERED: NURSING DECISION MEDICATION ORDER SCH ×2 (01:15→15:00)
[2016-11-29] MEDS: INSULIN ASPART 100 UNITS/ML 3 ML PEN SC SCH ×5 (01:24→21:50)
--- NOTE | 2016-11-29 08:02 | Progress Note ---
Subjective Date of Service: Nov 29, 2016. Subjective Pt evaluation today including: conversation w/ patient, chart review, lab review Voiding: no voiding problems 66 yo female with left ureteral stone and right rectus hematoma. Continues to have RLQ abdominal pain and nausea this morning. Denies any left flank pain. Denies vomiting. She is scheduled for CT guided aspiration of her hematoma today. Denies dysuria of hematuria. White count has normalized. Cr remains stable. UC&S noted to be negative. Problem List Medical Problems: (1) Chest pain Status: Acute (2) Hydronephrosis, left Status: Acute (3) Intractable abdominal pain Status: Acute (4) Left ureteral calculus Status: Acute (5) Rectus sheath hematoma Status: Acute (6) Subtherapeutic international normalized ratio (INR) Status: Acute (7) Subtherapeutic phenytoin level Status: Acute (8) Upper GI bleeding Status: Acute Review of Systems Constitutional: No chills, No fever Respiratory: No shortness of breath Cardiac: No chest pain Abdomen: + nausea, + pain (RLQ), + see HPI, No vomiting Female : No dysuria, No hematuria Heme: No abnormal bleeding/bruising Objective Vital Signs Date Time Temp Pulse Resp B/P Pulse Ox O2 Delivery O2 Flow Rate FiO2 11/29/16 00:33 36.7 103 18 153/65 94 Room Air 11/28/16 16:00 98 Room Air 11/28/16 15:37 36.7 107 18 141/65 95 Room Air 11/28/16 08:00 Room Air Physical Exam General Appearance: no apparent distress Eyes: normal inspection ENT: hearing grossly normal Neck: no JVD Respiratory/Chest: no respiratory distress, no accessory muscle use Cardiovascular: no JVD Extremities: normal inspection Neurologic/Psychiatric: alert, normal mood/affect, oriented x 3 Skin: normal color Laboratory Results Last 24 Hours Test 11/28/16 11:25 11/28/16 16:23 11/28/16 20:27 11/29/16 01:14 Bedside Glucose 177 mg/dl 164 mg/dl 170 mg/dl 210 mg/dl Test 11/29/16 04:44 11/29/16 06:09 11/29/16 07:25 Bedside Glucose 132 mg/dl Assessment and Plan A/P: Left ureteral stone, RLQ abdominal pain Pt clinically stable from stone perspective. Await CT guided aspiration of hematoma to see if pain improves. Would avoid stent placement for her left ureteral stone for now. Will eventually need outpatient left URS/LL as she is on chronic Coumadin. Would only need as an inpatient if she was to become febrile, develops renal failure, or pain worsens. Will continue to follow along with primary service a this time.
[2016-11-29 08:18] VITALS: BP 138/98; PULSE 98; TEMP 36.4; O2SAT 92
[2016-11-29 08:21] VITALS: O2SAT 92
[2016-11-29] MEDS ORDERED: BACLOFEN 10 MG TAB PO PRN (09:00)
[2016-11-29] MEDS: TAMSULOSIN HCL 0.4 MG CAP PO SCH ×2 (09:00→14:34)
[2016-11-29] MEDS: GABAPENTIN 300 MG CAP PO SCH ×3 (09:00→20:31)
[2016-11-29] MEDS: IPRATROPIUM BROMIDE/ALBUTEROL respimat INH INH SCH ×4 (09:05→20:31)
[2016-11-29 09:14] LABS: BUN/CREATININE RATIO 11.1 (10-20); CALCIUM 8.8 mg/dl (8.5-10.1); CREATININE 0.53 mg/dl (0.60-1.20); POTASSIUM 3.3 mmol/L (3.5-5.1)
[2016-11-29] MEDS ORDERED: MAGNESIUM CITRATE 296 ML/BTL PO SCH (09:15)
--- NOTE | 2016-11-29 09:20 | Pain Management Consultation ---
Pain Management Consultation Date of Consultation Nov 29, 2016. Reason for Consultation RLQ pain History 66yoF with h/o severe coughing prior to RLQ pain. Was at [facility] in [place] and dx with RLQ hematoma per pt. They recommended time and waiting as tx. She returned home and continued to have pain and presented to [facility] 11/25/16. RLQ hematoma again noted. Pt placed on percocet and used 3 doses in last 24hr with fair control of pain. Pain solely in RLQ around area of bruising, feels pressure like/fullness, nothing makes pain better or worse, constant since severe coughing spell in october 2016. Pain 5-9/10. Pt NPO for hematoma aspiration today. No other complaints of pain or constitutional complaint. Patient questioning what she should do with her coumadin in the future. Past Medical/Surgical History (1) GI bleed (2) Gastrointestinal bleed (3) facial cellulitis worsening (4) Tachycardia (5) Cellulitis and abscess of face (6) Hydronephrosis, left (7) Left ureteral calculus (8) Rectus sheath hematoma (9) Intractable abdominal pain (10) COPD (chronic obstructive pulmonary disease) (11) PE (pulmonary embolism) (12) COPD exacerbation (13) Left lower lobe pneumonia (14) COPD exacerbation (15) Abdominal pain (16) Diabetes (17) Heart disease (18) Asthma (19) Bronchitis (20) Pneumonia (21) Emphysema lung (22) Stroke (23) Pulmonary embolism (24) Pulmonary embolism (25) Acute respiratory failure (26) Diabetic neuropathy (27) SOB (shortness of breath) (28) COPD exacerbation Social / Work History Smoking Status: Current every day smoker Smokeless Tobacco Use: No Alcohol Use: none Drug Use: marijuana Marital Status: Housing Status: lives with family 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 11/25/16 08:30 12/25/16 08:29 Acetaminophen (Tylenol Tab) 650 mg Q4H PRN PO 11/25/16 08:30 12/25/16 08:29 Ondansetron HCl (Zofran Inj) 4 mg Q6H PRN IV 11/25/16 08:30 12/25/16 08:29 11/28/16 18:39 4 MG Gabapentin (Neurontin Cap) 300 mg TID PO 11/25/16 14:00 12/25/16 13:59 11/28/16 21:19 300 MG Miscellaneous Information (Order Awaiting Action) 1 ea QS N/A 11/25/16 16:00 12/25/16 15:59 Albuterol/ Ipratropium (Combivent Respimat Inh) 1 puffs QID INH 11/25/16 13:00 12/25/16 12:59 11/29/16 09:05 1 PUFFS Tamsulosin HCl (Flomax Cap) 0.4 mg QAM PO 11/26/16 09:00 12/26/16 08:59 11/28/16 07:35 0.4 MG Glucose (Glucose 40% Gel) 15-30 GRAMS 15 GRAMS... UD PRN PO 11/25/16 12:45 12/25/16 12:44 Glucose (Glucose Chew Tab) 4-8 Tablets 4 Tabl... UD PRN PO 11/25/16 12:45 12/25/16 12:44 Dextrose (Dextrose 50% 50ML Syringe) 25-50ML OF 50% DW IV FOR... UD PRN IV 11/25/16 12:45 12/25/16 12:44 Glucagon (Glucagon Inj) 1 mg UD PRN SQ 11/25/16 12:45 12/25/16 12:44 Oxycodone/ Acetaminophen (Percocet 5-325mg Tab) 2 tab Q4H PRN PO 11/26/16 12:00 12/10/16 11:59 11/28/16 18:05 2 TAB Ondansetron HCl (Zofran Odt) 8 mg Q6H PRN PO 11/28/16 05:00 12/28/16 04:59 11/28/16 05:05 8 MG Bisacodyl (Dulcolax Tab) 5 mg BID PRN PO 11/28/16 11:45 12/28/16 11:44 Trazodone HCl (Desyrel Tab) 100 mg HS PRN PO 11/28/16 20:00 12/28/16 19:59 11/28/16 21:19 100 MG Insulin Aspart (novoLOG ASPART) SLIDING SCALE G... Q6 SC 11/29/16 06:00 12/29/16 05:59 11/29/16 01:24 3 UNITS Baclofen (Lioresal Tab) 10 mg TID PRN PO 11/29/16 09:00 12/29/16 08:59 Magnesium Citrate (Citrate Of Magnesia Soln) 30 ml TODAY@0915 PO 11/29/16 09:15 11/29/16 23:59 Review of Systems 10pt ROS otherwise negative from HPI Physical Exam Height & Weight: Height 5 feet, 6.00 inches. Weight 63.500 (Kilograms) 139 (Pounds) Last Vital Signs Documentation Date Time Temp Pulse Resp B/P Pulse Ox O2 Delivery O2 Flow Rate FiO2 11/29/16 08:21 92 Room Air 11/29/16 08:18 36.4 98 16 138/98 11/27/16 11:30 1.5 Laboratory / Imaging Results Laboratory Results (Last CBC): 11/28/16 06:23 Red Blood Count 4.34, Mean Corpuscular Volume 88.2, Mean Corpuscular Hemoglobin 29.0, Mean Corpuscular Hemoglobin Concent 32.9, Mean Platelet Volume 10.1, Neutrophils (%) (Auto) 57.3, Lymphocytes (%) (Auto) 30.7, Monocytes (%) (Auto) 8.0, Eosinophils (%) (Auto) 3.4, Basophils (%) (Auto) 0.3, Neutrophils # (Auto) 3.50, Lymphocytes # (Auto) 1.88, Monocytes # (Auto) 0.49, Eosinophils # (Auto) 0.21, Basophils # (Auto) 0.02 Imaging: ABDOMEN AND PELVIS CT WITH IV CONTRAST CT DOSE: 259.54 mGy.cm HISTORY: Pain bilateral abdominal lower pain TECHNIQUE: Multiaxial CT images of the abdomen and pelvis were performed following the use of intravenous contrast. COMPARISON STUDY: A1 2013 FINDINGS: 5 mm obstructing calculus distal left ureter slightly proximal to the left ureterovesical junction. Mild left hydroureteronephrosis. Bowel pattern is nonobstructive. Liver spleen and pancreas are unremarkable. Fluid collection within the right rectus musculature at its inferior margin measuring 6 x 4.5 x 8 cm. This appears represent a rectus hematoma versus seroma. Several uterine myometrial calcifications. IMPRESSION: 1. Obstructing calculus distal left ureter measuring 5 mm. 2. Mild left hydroureteronephrosis. 3. Lower right rectus hematoma/seroma. 4. Nonobstructive bowel pattern. [~ rep ct add3]] KUB CLINICAL HISTORY: Left ureteral calculus COMPARISON STUDY: CT scan dated 11/25/2016 FINDINGS: There are no findings to indicate a bowel obstruction. There is indwelling IVC filter. There is contrast present within the bladder secondary to a prior CT scan. There are no calcifications suspicious for renal calculi although the renal shadows are largely obscured by overlying bowel gas and fecal material. The distal left ureteral calculus described on the recent CT scan is not visible. This this is possibly obscured by the patient's bladder or potentially the calculus has passed. IMPRESSION: 1. The recently described left UVJ calculus is not visualized. It is possible that it is being obscured by contrast within the bladder. Assessment Rectus hematoma RLQ, to be drained today Previously noted renal stone, appears to have passed, but urology following Marijuana usage Recommendations With pain describes as fullness/pressure, suspect drainage of hematoma will result in decreased pain. Would not escalate narcotics, used 3 doses in last 24 hrs Initiated baclofen 10mg po q8 prn pain to ease pressure/fullness sensation Initiated mag citrate x1 to ease constipation. May result in decrease fullness/ pressure sensation. Orders written No role for interventional pain tx at this time Asked pt to speak with her primary prescriber about her coumadin dosing concerns. Thank you for consult, please call with any questions. Projectioneering Voice Recognition This chart was completed in part utilizing [employer] Voice Recognition Software. Random word insertions, pronoun errors, and incomplete sentences are an occasional consequence of this system due to software limitations and ambient noise. Any questions or concerns about the content, text or information contained within the body of this dictation should be directly addressed to the provider for clarification.
[2016-11-29 09:24] LABS: PROTHROMBIN TIME (PATIENT) 10.2 SECONDS (9.0-12.0)
[2016-11-29] MEDS ORDERED: MoRPHine SULFATE 2 MG/ML CARP IV ONE (10:30)
[2016-11-29] MEDS ORDERED: MoRPHine SULFATE 2 MG/ML CARP IV PRN (10:30)
--- NOTE | 2016-11-29 12:19 | Progress Note ---
Subjective Date of Service: Nov 29, 2016. Subjective Pt evaluation today including: conversation w/ patient, physical exam, chart review, lab review, review of studies, review of inpatient medication list Reports pain in right lower quadrant abdomen, about the same 03/31 No N/V/D No fevers or chills Awaiting procedure at this time Problem List Medical Problems: (1) Chest pain Status: Acute (2) Hydronephrosis, left Status: Acute (3) Intractable abdominal pain Status: Acute (4) Left ureteral calculus Status: Acute (5) Rectus sheath hematoma Status: Acute (6) Subtherapeutic international normalized ratio (INR) Status: Acute (7) Subtherapeutic phenytoin level Status: Acute (8) Upper GI bleeding Status: Acute Review of Systems Constitutional: No chills, No fever Respiratory: No cough, No dyspnea on exertion, No shortness of breath, No sputum, No wheezing Cardiac: No chest pain, No orthopnea Abdomen: + pain, No constipation, No diarrhea, No nausea, No vomiting Musculoskeletal: No joint pain Female : No dysuria, No urinary frequency Objective Vital Signs Date Time Temp Pulse Resp B/P Pulse Ox O2 Delivery O2 Flow Rate FiO2 11/29/16 08:21 92 Room Air 11/29/16 08:18 36.4 98 16 138/98 92 Room Air 11/29/16 07:15 Room Air 11/29/16 00:33 36.7 103 18 153/65 94 Room Air 11/28/16 16:00 98 Room Air 11/28/16 15:37 36.7 107 18 141/65 95 Room Air Physical Exam General Appearance: WD/WN, + mild distress Neck: supple, no adenopathy Respiratory/Chest: lungs clear, normal breath sounds Cardiovascular: no edema, no gallop Abdomen: soft, + tenderness (right lower quadrant) Neurologic/Psychiatric: alert, oriented x 3 Laboratory Results Last 24 Hours Test 11/28/16 16:23 11/28/16 20:27 11/29/16 01:14 11/29/16 06:09 Bedside Glucose 164 mg/dl 170 mg/dl 210 mg/dl 132 mg/dl Test 11/29/16 07:59 11/29/16 08:58 11/29/16 11:18 Sodium Level 142 mmol/L Potassium Level 3.3 mmol/L Chloride Level 105 mmol/L Carbon Dioxide Level 30 mmol/L Anion Gap 7.0 mmol/L Blood Urea Nitrogen 6 mg/dl Creatinine 0.53 mg/dl Est Creatinine Clear Calc Drug Dose 95.0 ml/min Estimated GFR () 113.1 Estimated GFR (Non- 97.6 BUN/Creatinine Ratio 11.1 Random Glucose 122 mg/dl Calcium Level 8.8 mg/dl Prothrombin Time 10.2 SECONDS Prothromb Time International Ratio 1.0 Bedside Glucose 134 mg/dl Assessment and Plan 66-year-old female presented to the emergency department with lower abdominal pain, nausea, vomiting and diarrhea for the last several days. Also notes some shortness of breath. Workup in the emergency department is significant for a 5 mm left ureteral obstructing stone and a hematoma in the rectus musculature of the abdomen. Ureteral stone -Repeat CT did not show any signs of a stone. She appears fairly comfortable on exam. My guess is that she probably passed the stone. -Transition Dilaudid IV to Percocet 1-2 tabs every 4 hours as needed for pain -Continue Flomax -Continue to strain urine -Discussed with [id number] in the office as an outpatient Rectus muscle hematoma/abdominal pain -pt c/o severe pain but is resting comfortably on exam -This has been present since the end of September when she was hospitalized at a hospital in [place]. She has also seen her primary care physician in follow- up. He is aware of the hematoma. -General surgery consult-this may be contributing to her pain -Coumadin dced, INR appropriate for CT guided aspirate of hematoma scheduled for 11/29 Shortness of patient is not hypoxic today. -CT of the chest negative -ultrasound of the lower extremities bilaterally negative for DVT DM-BSG's reasonable -home dose of metformin 1000 mg po BID will need to be held for [address] -Continue insulin sliding scale HTN-no formal dx. 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
--- NOTE | 2016-11-29 14:20 | Surgery Progress Note ---
Surgery Progress Note Date of Service Nov 29, 2016. Subjective Post OP Day: HD # 4 Objective Vital Signs: Date Time Temp Pulse Resp B/P Pulse Ox O2 Delivery O2 Flow Rate FiO2 11/29/16 08:21 92 Room Air 11/29/16 08:18 36.4 98 16 138/98 92 Room Air 11/29/16 07:15 Room Air 11/29/16 00:33 36.7 103 18 153/65 94 Room Air 11/28/16 16:00 98 Room Air 11/28/16 15:37 36.7 107 18 141/65 95 Room Air General Appearance: WD/WN, no apparent distress Head: normocephalic, atraumatic Respiratory/Chest: no respiratory distress, no accessory muscle use Abdomen: soft, + tenderness (RLQ, no peritonitis, no ecchymosis) Laboratory Results: Results Past 24 Hours Test 11/28/16 16:23 11/28/16 20:27 11/29/16 01:14 11/29/16 06:09 Range/Units Bedside Glucose 164 170 210 132 70-90 mg/dl Test 11/29/16 07:59 11/29/16 08:58 11/29/16 11:18 Range/Units Sodium Level 142 136-145 mmol/L Potassium Level 3.3 3.5-5.1 mmol/L Chloride Level 105 98-107 mmol/L Carbon Dioxide Level 30 21-32 mmol/L Anion Gap 7.0 3-11 mmol/L Blood Urea Nitrogen 6 7-18 mg/dl Creatinine 0.53 0.60-1.20 mg/dl Est Creatinine Clear Calc Drug Dose 95.0 ml/min Estimated GFR () 113.1 Estimated GFR (Non- 97.6 BUN/Creatinine Ratio 11.1 10-20 Random Glucose 122 70-99 mg/dl Calcium Level 8.8 8.5-10.1 mg/dl Prothrombin Time 10.2 9.0-12.0 SECONDS Prothromb Time International Ratio 1.0 0.9-1.1 Bedside Glucose 134 70-90 mg/dl Assessment & Plan Rectus Sheath Hematoma - Radiologist unable to perform CT guided aspiration - Vitals stable - H&H stable - INR 1.0 today History of Clotting disorder Plan: No surgical intervention, radiologist unable to perform CT guided aspiration as the hematoma has calcified Conservative management with pain medication Should restart her Coumadin today given no surgical intervention or procedure, will notify hospitalist Diet- Regular diet Dr. Griffin has seen and examined patient, agrees with assessment and plan.
[2016-11-29] MEDS: OXYCODONE/ACETAMINOPHEN 5-325 TAB PO PRN ×2 (14:34→19:59)
[2016-11-29 15:33] VITALS: BP 143/69; PULSE 126; TEMP 36.4; O2SAT 92
[2016-11-29] MEDS: WARFARIN SOD 5 MG TAB PO SCH (16:14)
[2016-11-30] VITALS: BP 114/71; PULSE 88; TEMP 36.7; O2SAT 93
[2016-11-30] MEDS: OXYCODONE/ACETAMINOPHEN 5-325 TAB PO PRN ×3 (04:44→21:23)
[2016-11-30 07:34] LABS: BASO % 0.6 %; BASO ABS # 0.04 K/uL (0-0.2); COMPLETE YES; EOS % 3.6 %; HEMATOCRIT 35.9 % (37-47); IG% 0.1 %; LYMPH % 33.5 %; MEAN CELL VOLUME 88.2 fL (80-100); MEAN CORPUSCULAR HEMOGLOBIN 28.7 pg (25-34); MEAN CORPUSCULAR HGB CONC 32.6 g/dl (32-36); MEAN PLATELET VOLUME 9.8 fL (7.4-10.4); MONO % 9.9 %; NEUT % 52.3 %; PLATELET COUNT 220 K/uL (130-400); RED BLOOD COUNT 4.07 M/uL (4.2-5.4); WHITE BLOOD COUNT 6.86 K/uL (4.8-10.8)
[2016-11-30 07:43] VITALS: BP 128/68; PULSE 98; TEMP 36.7; O2SAT 96
[2016-11-30 07:57] LABS: BUN/CREATININE RATIO 20.3 (10-20); CALCIUM 8.6 mg/dl (8.5-10.1); CREATININE 0.74 mg/dl (0.60-1.20); POTASSIUM 3.7 mmol/L (3.5-5.1)
--- NOTE | 2016-11-30 08:53 | Progress Note ---
Subjective Date of Service: Nov 30, 2016. Subjective Pt evaluation today including: conversation w/ patient, chart review, lab review Voiding: no voiding problems 66 yo female with distal left ureteral stone and right rectus hematoma. Stone not visualized on KUB. The pt denies left flank pain, dysuria, or hematuria today. Attempted CT guided aspiration of her right rectus hematoma unable to be performed yesterday as the hematoma was calcified. General surgery following. She reports her RLQ abdominal pain is currently controlled this morning. Denies n/v this morning. She remains afebrile. Labs stable. Problem List Medical Problems: (1) Chest pain Status: Acute (2) Hydronephrosis, left Status: Acute (3) Intractable abdominal pain Status: Acute (4) Left ureteral calculus Status: Acute (5) Rectus sheath hematoma Status: Acute (6) Subtherapeutic international normalized ratio (INR) Status: Acute (7) Subtherapeutic phenytoin level Status: Acute (8) Upper GI bleeding Status: Acute Review of Systems Constitutional: No chills, No fever Respiratory: No shortness of breath Cardiac: No chest pain Abdomen: No nausea, No pain, No vomiting Female : No dysuria, No hematuria Heme: No abnormal bleeding/bruising Objective Vital Signs Date Time Temp Pulse Resp B/P Pulse Ox O2 Delivery O2 Flow Rate FiO2 11/30/16 07:43 36.7 98 17 128/68 96 Room Air 11/30/16 00:00 36.7 88 20 114/71 93 Room Air 11/29/16 23:51 Room Air 11/29/16 15:33 36.4 126 18 143/69 92 Room Air 11/29/16 15:15 Room Air Physical Exam General Appearance: no apparent distress Eyes: normal inspection ENT: hearing grossly normal Neck: no JVD Respiratory/Chest: no respiratory distress, no accessory muscle use Cardiovascular: no JVD Extremities: normal inspection Neurologic/Psychiatric: alert, normal mood/affect, oriented x 3 Skin: normal color Laboratory Results Last 24 Hours Test 11/29/16 08:58 11/29/16 11:18 11/29/16 16:25 11/29/16 20:18 Prothrombin Time 10.2 SECONDS Prothromb Time International Ratio 1.0 Bedside Glucose 134 mg/dl 175 mg/dl 173 mg/dl Test 11/30/16 07:03 11/30/16 07:29 White Blood Count 6.86 K/uL Red Blood Count 4.07 M/uL Hemoglobin 11.7 g/dL Hematocrit 35.9 % Mean Corpuscular Volume 88.2 fL Mean Corpuscular Hemoglobin 28.7 pg Mean Corpuscular Hemoglobin Concent 32.6 g/dl Platelet Count 220 K/uL Mean Platelet Volume 9.8 fL Neutrophils (%) (Auto) 52.3 % Lymphocytes (%) (Auto) 33.5 % Monocytes (%) (Auto) 9.9 % Eosinophils (%) (Auto) 3.6 % Basophils (%) (Auto) 0.6 % Neutrophils # (Auto) 3.58 K/uL Lymphocytes # (Auto) 2.30 K/uL Monocytes # (Auto) 0.68 K/uL Eosinophils # (Auto) 0.25 K/uL Basophils # (Auto) 0.04 K/uL RDW Standard Deviation 43.2 fL RDW Coefficient of Variation 13.3 % Immature Granulocyte % (Auto) 0.1 % Immature Granulocyte # (Auto) 0.01 K/uL Sodium Level 140 mmol/L Potassium Level 3.7 mmol/L Chloride Level 104 mmol/L Carbon Dioxide Level 31 mmol/L Anion Gap 5.0 mmol/L Blood Urea Nitrogen 15 mg/dl Creatinine 0.74 mg/dl Est Creatinine Clear Calc Drug Dose 68.1 ml/min Estimated GFR () 96.5 Estimated GFR (Non- 83.2 BUN/Creatinine Ratio 20.3 Random Glucose 172 mg/dl Calcium Level 8.6 mg/dl Bedside Glucose 164 mg/dl Assessment and Plan A/P: Left ureteral stone, RLQ abdominal pain, right rectus hematoma Pt clinically stable from stone perspective. Would avoid stent placement for her left ureteral stone for now. Will eventually need outpatient left URS/LL as she is on chronic Coumadin. Would only need as an inpatient if she was to become febrile, develops renal failure, or pain worsens. Will plan for outpatient f/u in 1-2 weeks with IVP vs repeat CT scan to check for stone as it was not previously visible on KUB. Pt OK for d/c home from perspective when OK with primary service. Recommend d /c home on oral pain medication, Colace, and Flomax. Will arrange for outpatient f/u in 1-2 weeks. Thanks for allowing us to participate in this pt's care. Recall PRN issues.
[2016-11-30] MEDS: IPRATROPIUM BROMIDE/ALBUTEROL respimat INH INH SCH ×4 (09:16→21:17)
[2016-11-30] MEDS: GABAPENTIN 300 MG CAP PO SCH ×3 (09:16→21:18)
[2016-11-30] MEDS: INSULIN ASPART 100 UNITS/ML 3 ML PEN SC SCH ×4 (09:19→21:17)
--- NOTE | 2016-11-30 11:19 | Surgery Progress Note ---
Surgery Progress Note Date of Service Nov 30, 2016. Subjective + feeling well, + pain controlled, No SOB, No chest pain, No nausea, No vomiting Objective Vital Signs: Date Time Temp Pulse Resp B/P Pulse Ox O2 Delivery O2 Flow Rate FiO2 11/30/16 07:43 36.7 98 17 128/68 96 Room Air 11/30/16 07:25 Room Air 11/30/16 00:00 36.7 88 20 114/71 93 Room Air 11/29/16 23:51 Room Air 11/29/16 15:33 36.4 126 18 143/69 92 Room Air 11/29/16 15:15 Room Air General Appearance: WD/WN, no apparent distress Head: normocephalic, atraumatic Abdomen: soft, + tenderness (very mild tenderness in the RLQ , much improved, no rigidity or guarding) Laboratory Results: Results Past 24 Hours Test 11/29/16 11:18 11/29/16 16:25 11/29/16 20:18 11/30/16 07:03 Range/Units Bedside Glucose 134 175 173 70-90 mg/dl White Blood Count 6.86 4.8-10.8 K/uL Red Blood Count 4.07 4.2-5.4 M/uL Hemoglobin 11.7 12.0-16.0 g/dL Hematocrit 35.9 37-47 % Mean Corpuscular Volume 88.2 80-100 fL Mean Corpuscular Hemoglobin 28.7 25-34 pg Mean Corpuscular Hemoglobin Concent 32.6 32-36 g/dl Platelet Count 220 130-400 K/uL Mean Platelet Volume 9.8 7.4-10.4 fL Neutrophils (%) (Auto) 52.3 % Lymphocytes (%) (Auto) 33.5 % Monocytes (%) (Auto) 9.9 % Eosinophils (%) (Auto) 3.6 % Basophils (%) (Auto) 0.6 % Neutrophils # (Auto) 3.58 1.4-6.5 K/uL Lymphocytes # (Auto) 2.30 1.2-3.4 K/uL Monocytes # (Auto) 0.68 0.11-0.59 K/uL Eosinophils # (Auto) 0.25 0-0.5 K/uL Basophils # (Auto) 0.04 0-0.2 K/uL RDW Standard Deviation 43.2 36.4-46.3 fL RDW Coefficient of Variation 13.3 11.5-14.5 % Immature Granulocyte % (Auto) 0.1 % Immature Granulocyte # (Auto) 0.01 0.00-0.02 K/uL Sodium Level 140 136-145 mmol/L Potassium Level 3.7 3.5-5.1 mmol/L Chloride Level 104 98-107 mmol/L Carbon Dioxide Level 31 21-32 mmol/L Anion Gap 5.0 3-11 mmol/L Blood Urea Nitrogen 15 7-18 mg/dl Creatinine 0.74 0.60-1.20 mg/dl Est Creatinine Clear Calc Drug Dose 68.1 ml/min Estimated GFR () 96.5 Estimated GFR (Non- 83.2 BUN/Creatinine Ratio 20.3 10-20 Random Glucose 172 70-99 mg/dl Calcium Level 8.6 8.5-10.1 mg/dl Test 11/30/16 07:29 Range/Units Bedside Glucose 164 70-90 mg/dl Assessment & Plan Rectus Sheath Hematoma - Radiologist unable to perform CT guided aspiration - Vitals stable - H&H stable History of Clotting disorder Plan: No surgical intervention, radiologist unable to perform CT guided aspiration as the hematoma has calcified Conservative management with pain medication Continue Coumadin, INR will need to be closely managed by PCP to prevent further bleeding/increasing hematoma. Patient understands the hematoma will resolve on its own over time, may take months Patient may be discharged from surgical standpoint, per medicine team Dr. Griffin has seen and examined patient, agrees with assessment and plan.
[2016-11-30 14:42] VITALS: BP 143/80; PULSE 92; TEMP 36.7; O2SAT 92
[2016-11-30 16:10] VITALS: O2SAT 92
[2016-11-30] MEDS: WARFARIN SOD 5 MG TAB PO SCH (16:10)
--- NOTE | 2016-11-30 17:11 | Hospitalist Progress Note ---
Hospitalist Progress Note Date of Service Nov 30, 2016. (Elmer Sánchez PA-C) Subjective Pt evaluation today including: conversation w/ patient, physical exam, chart review, lab review, review of studies, review of inpatient medication list Pain: continues with right lower quadrant pain PO Intake: tolerating diet without difficulty Voiding: no voiding problems This is a 66-year-old -[place] female that presented with right lower quadrant pain. Found to have ureteral calculus with hydronephrosis. Straining of urine unsuccessful for passing stone Also found to have a right lower quadrant hematoma which apparently is chronic and was previously discovered at [facility] in [place]. At that time they elected to continue to watch and wait. CT-guided needle aspiration of hematoma yesterday unsuccessful as hematoma had calcified. Surgery noted no intervention due to further risk of complication. Pain consultation requested. Patient seen by Dr. Vance. 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 INR 1.0 Constitutional: No chills, No fever, No sweats Eyes: No diplopia, No eye pain, No worsening of vision ENT: No unusual epistaxis Respiratory: + cough (nonproductive and improving), No hemoptysis, No shortness of breath, No wheezing Cardiovascular: No chest pain, No palpitations Abdomen: + pain (right lower quadrant unchanged from yesterday), No diarrhea , No vomiting Musculoskeletal: No calf pain, No muscle pain, No swelling Heme: No problem reported Endo: No problem reported Skin: No rash All Other Systems: Reviewed and Negative (Elmer Sánchez PA-C) Medications Current Inpatient Medications Medications (Trade) Dose Ordered Sig/Sarina Route Start Time Stop Time Status Last Admin Dose Admin Hydralazine HCl (HydrALAZINE INJ) 10 mg Q6H PRN IV. 11/25/16 08:30 12/25/16 08:29 Acetaminophen (Tylenol Tab) 650 mg Q4H PRN PO 11/25/16 08:30 12/25/16 08:29 Ondansetron HCl (Zofran Inj) 4 mg Q6H PRN IV 11/25/16 08:30 12/25/16 08:29 11/28/16 18:39 4 MG Gabapentin (Neurontin Cap) 300 mg TID PO 11/25/16 14:00 12/25/16 13:59 11/30/16 13:39 300 MG Miscellaneous Information (Order Awaiting Action) 1 ea QS N/A 11/25/16 16:00 12/25/16 15:59 Albuterol/ Ipratropium (Combivent Respimat Inh) 1 puffs QID INH 11/25/16 13:00 12/25/16 12:59 11/30/16 13:39 1 PUFFS Tamsulosin HCl (Flomax Cap) 0.4 mg QAM PO 11/26/16 09:00 12/26/16 08:59 11/29/16 14:34 0.4 MG Glucose (Glucose 40% Gel) 15-30 GRAMS 15 GRAMS... UD PRN PO 11/25/16 12:45 12/25/16 12:44 Glucose (Glucose Chew Tab) 4-8 Tablets 4 Tabl... UD PRN PO 11/25/16 12:45 12/25/16 12:44 Dextrose (Dextrose 50% 50ML Syringe) 25-50ML OF 50% DW IV FOR... UD PRN IV 11/25/16 12:45 12/25/16 12:44 Glucagon (Glucagon Inj) 1 mg UD PRN SQ 11/25/16 12:45 12/25/16 12:44 Oxycodone/ Acetaminophen (Percocet 5-325mg Tab) 2 tab Q4H PRN PO 11/26/16 12:00 12/10/16 11:59 11/30/16 12:10 2 TAB Ondansetron HCl (Zofran Odt) 8 mg Q6H PRN PO 11/28/16 05:00 12/28/16 04:59 11/28/16 05:05 8 MG Bisacodyl (Dulcolax Tab) 5 mg BID PRN PO 11/28/16 11:45 12/28/16 11:44 11/29/16 14:33 5 MG Trazodone HCl (Desyrel Tab) 100 mg HS PRN PO 11/28/16 20:00 12/28/16 19:59 11/28/16 21:19 100 MG Baclofen (Lioresal Tab) 10 mg TID PRN PO 11/29/16 09:00 12/29/16 08:59 Warfarin Sodium (Coumadin Tab) 10 mg DAILY@16 PO 11/29/16 16:00 12/29/16 15:59 11/30/16 16:10 10 MG Insulin Aspart (novoLOG ASPART) SLIDING SCALE G... ACHS SC 11/29/16 16:30 12/29/16 16:29 11/30/16 12:08 5 UNITS (Elmer Sánchez PA-C) Objective Vital Signs Date Time Temp Pulse Resp B/P Pulse Ox O2 Delivery O2 Flow Rate FiO2 11/30/16 16:10 92 Room Air 11/30/16 14:42 36.7 92 18 143/80 92 Room Air 11/30/16 07:43 36.7 98 17 128/68 96 Room Air 11/30/16 07:25 Room Air 11/30/16 00:00 36.7 88 20 114/71 93 Room Air 11/29/16 23:51 Room Air (Elmer Sánchez PA-C) Physical Exam Notes: Vital Signs - as noted below Laboratory Data - as noted below Physical Exam: General - NAD Eyes - No icterus, gaze conjugate ENT - Mucosa moist, no lesions or candidiasis Neck - Supple, No JVD Lungs - No bronchospasm, rales, or rhonchi. Heart - Regular, rate controlled Abdomen - Soft, ND, BS present and equal in all four quadrants. Tenderness to deep palpation right lower quadrant. Extremities - No edema, pedal pulses intact. No calf tenderness or Homans sign Neuro - A&OX3 (Elmer Sánchez PA-C) Laboratory Results Last 24 Hours Test 11/29/16 20:18 11/30/16 07:03 11/30/16 07:29 11/30/16 11:25 Bedside Glucose 173 mg/dl 164 mg/dl 186 mg/dl White Blood Count 6.86 K/uL Red Blood Count 4.07 M/uL Hemoglobin 11.7 g/dL Hematocrit 35.9 % Mean Corpuscular Volume 88.2 fL Mean Corpuscular Hemoglobin 28.7 pg Mean Corpuscular Hemoglobin Concent 32.6 g/dl Platelet Count 220 K/uL Mean Platelet Volume 9.8 fL Neutrophils (%) (Auto) 52.3 % Lymphocytes (%) (Auto) 33.5 % Monocytes (%) (Auto) 9.9 % Eosinophils (%) (Auto) 3.6 % Basophils (%) (Auto) 0.6 % Neutrophils # (Auto) 3.58 K/uL Lymphocytes # (Auto) 2.30 K/uL Monocytes # (Auto) 0.68 K/uL Eosinophils # (Auto) 0.25 K/uL Basophils # (Auto) 0.04 K/uL RDW Standard Deviation 43.2 fL RDW Coefficient of Variation 13.3 % Immature Granulocyte % (Auto) 0.1 % Immature Granulocyte # (Auto) 0.01 K/uL Sodium Level 140 mmol/L Potassium Level 3.7 mmol/L Chloride Level 104 mmol/L Carbon Dioxide Level 31 mmol/L Anion Gap 5.0 mmol/L Blood Urea Nitrogen 15 mg/dl Creatinine 0.74 mg/dl Est Creatinine Clear Calc Drug Dose 68.1 ml/min Estimated GFR () 96.5 Estimated GFR (Non- 83.2 BUN/Creatinine Ratio 20.3 Random Glucose 172 mg/dl Calcium Level 8.6 mg/dl Test 11/30/16 16:06 Bedside Glucose 124 mg/dl (Elmer Sánchez PA-C) Assessment and Plan HYDRONEPHROSIS Secondary to ureteral stone Repeat CT with no evidence of stones secondary to contrast Patient transitioned from Dilaudid to Percocet Continue Flomax Patient continues to strain urine with no results Urology consulted No further intervention Follow-up in the outpatient setting in 1-2 weeks RECTAL SHEATH HEMATOMA This appears to be chronic the last several weeks and identified at [facility] in [place] Attempted evacuation of hematoma via needle aspiration under CT guidance yesterday unsuccessful secondary to calcification Surgery consulted No surgical intervention at this time Continue to monitor Restart Coumadin for history of pulmonary embolus Hemoglobin stable NT to follow serial labs as INR becomes therapeutic SHORTNESS OF BREATH Patient with history of COPD Continue bronchodilators No hypoxia No chest pain or tightness No lower extremity edema / lower extremity duplex negative bilaterally No pleuritic chest pain or hemoptysis No consolidation on CT scan of chest Increase ambulation as tolerated Incentive spirometry HYPERTENSION No history of formal diagnosis and no prior outpatient antihypertensives May be secondary to pain response Improved today Continue pain management Hydralazine IV when necessary COPD Continue bronchodilators 4 times a day No adventitious breath sounds No indication for steroids or escalation of bronchodilators HISTORY OF CHRONIC PULMONARY EMBOLI Multiple episodes over the years of new pulmonary embolus On lifelong Coumadin - 7 mg daily INR 1.0 Coumadin had been held for possible interventional procedures Coumadin restarted yesterday (11/29/16) at 10 mg daily History of IVC filter placement several years ago Follow clinically Discussed need for bridging therapy with Dr. Robles - at this time continue with Coumadin, ambulate as tolerated, and follow clinically ANXIETY Patient appears to be calm today Continue Pristiq 50 mg by mouth twice a day (home medication) is DVT PROPHYLAXIS Coumadin restarted yesterday at 10 mg by mouth daily Continue with teds and SCDs No bridging therapy secondary to rectal sheath hematoma Case discussed with Dr. Robles. Please refer to her addendum for further recommendations CONSULTS: General Surgery: Dr. Mcnally Pain Management: Dr. Vance Urology: Dr. Delgado PROCEDURES: KUB CTA chest Lower extremity venous Doppler study Abdominal/pelvis CT Continued [facility] stay due to: other (restart Coumadin. Follow clinically for expansion of rectal sheath hematoma) Discharge planning: home (Elmer Sánchez PA-C) History Physician Bun Machine Operator Supervision Note: I interviewed and examined the patient. Discussed with [place] Sánchez and agree with findings and plan as documented in the note. Any exceptions or clarifications are listed here: Patient doing well, hemoglobin is stable, no evidence of reexpansion of hematoma. Took one dose of IV morphine today but discussed that she should try the baclofen instead and I will discontinue any IV pain meds. She has no left CVA or flank tenderness at all and never did despite the incidental left ureteral stone. Vitals reviewed Regular rate and rhythm no murmurs gallops rubs Decreased breath sounds throughout, no wheezes crackles or rhonchi Abdomen positive bowel sounds, soft, positive tenderness to palpation in right lower quadrant without guarding or rebound, no mass palpable 66-year-old female here with painful rectus sheath hematoma and incidental finding of left ureteral stone which may have passed. Afebrile, no evidence of UTI, but with hydronephrosis on the left. -Follow up with urology as an outpatient Plan to discharge tomorrow if no evidence of expansion of hematoma-we will send home with small supply of oxycodone and baclofen for pain and muscle spasm with close follow-up with PCP Documented By: Marisol Robles (Marisol Robles MD)
[2016-12-01 00:08] VITALS: BP 150/82; PULSE 90; TEMP 36.6; O2SAT 93
[2016-12-01 07:24] LABS: BASO % 0.5 %; BASO ABS # 0.03 K/uL (0-0.2); COMPLETE YES; EOS % 4.5 %; HEMATOCRIT 37.5 % (37-47); IG% 0.2 %; LYMPH % 43.7 %; LYMPH ABS # 2.43 K/uL (1.2-3.4); MEAN CELL VOLUME 87.8 fL (80-100); MEAN CORPUSCULAR HEMOGLOBIN 28.8 pg (25-34); MEAN CORPUSCULAR HGB CONC 32.8 g/dl (32-36); MEAN PLATELET VOLUME 9.9 fL (7.4-10.4); NEUT % 44.1 %; PLATELET COUNT 213 K/uL (130-400); RED BLOOD COUNT 4.27 M/uL (4.2-5.4); WHITE BLOOD COUNT 5.56 K/uL (4.8-10.8)
[2016-12-01 07:37] VITALS: BP 142/83; PULSE 81; TEMP 36.5; O2SAT 95
[2016-12-01 07:45] LABS: BUN/CREATININE RATIO 19.3 (10-20); CREATININE 0.59 mg/dl (0.60-1.20); POTASSIUM 3.8 mmol/L (3.5-5.1)
[2016-12-01 08:00] VITALS: O2SAT 95
[2016-12-01] MEDS: TAMSULOSIN HCL 0.4 MG CAP PO SCH (08:13)
[2016-12-01] MEDS: GABAPENTIN 300 MG CAP PO SCH ×2 (08:13→13:25)
[2016-12-01] MEDS: IPRATROPIUM BROMIDE/ALBUTEROL respimat INH INH SCH ×2 (08:13→12:15)
[2016-12-01] MEDS: INSULIN ASPART 100 UNITS/ML 3 ML PEN SC SCH ×2 (09:00→12:19)
[2016-12-01 11:16] VITALS: BP 142/83; PULSE 81; TEMP 36.5; O2SAT 95
[2016-12-01] MEDS ORDERED: LRS10 PO (12:48)
[2016-12-01] MEDS ORDERED: OXYC-57 PO (12:48)
--- NOTE | 2016-12-01 12:56 | Discharge Instructions ---
Discharge Instructions Date of Service Dec 01, 2016. Admission Reason for Admission: Left Ureteral Calculus Discharge Discharge Diagnosis / Problem: rectus sheath hematoma chronic Discharge Goals Goal(s): Decrease discomfort Activity Recommendations Activity Limitations: resume your previous activity . Current Hospital Diet Patient's current hospital diet: Diabetes Type 2 Diet Discharge Diet Recommended Diet: Diabetes Type 2 Diet Procedures Procedures Performed: drainage of hematoma attempted....not possible area is calcified. Pending Studies Studies pending at discharge: no Laboratory Results Hemoglobin A1c Test 11/12/16 14:02 Range/Units Estimated Average Glucose 137 mg/dl Hemoglobin A1c 6.4 H 4.5-5.6 % Lipid Panel Test 11/12/16 14:02 Range/Units Triglycerides Level 158 H 0-150 mg/dl Cholesterol Level 273 H 0-200 mg/dl HDL Cholesterol 44 mg/dl Cholesterol/HDL Ratio 6.2 LDL Cholesterol, Calculated 197 mg/dl Medical Emergencies . Who to Call and When: Medical Emergencies: If at any time you feel your situation is an emergency, please call 911 immediately. . Non-Emergent Contact Non-Emergency issues call your: Primary Care Provider . Past History Medical & Surgical History: (1) Rectus sheath hematoma (2) Left ureteral calculus (3) Hydronephrosis, left (4) Intractable abdominal pain (5) COPD (chronic obstructive pulmonary disease) . "Provider Documentation" section prepared by Denis Tom. VTE Core Measure Inpt VTE Proph given/why not?: T.E.D. Stockings, SCD's, Contraindicated
[2016-12-01] MEDS ORDERED: DLC5 PO (13:11)
--- NOTE | 2016-12-01 13:44 | DISCHARGE SUMMARY ---
Please see dictated H\T\P for full details. BRIEFLY: The patient is a 66-year-old who presented complaining of abdominal pain for 4-5 days in the right side, radiating to her back. CAT scan was performed which showed an obstructing calculus in the distal left ureter, mild left hydroureteronephrosis and lower right rectus hematoma seroma, nonobstructive bowel pattern. The patient was seen in consultation by pain management Dr. Vance, who recommended baclofen. The patient was seen in consultation by surgery, Dr. Mcnally. All of her pain was predominantly on the right side where the rectal sheath hematoma was found. This was found to be a clinic circumstances and present in an earlier hospitalization. An attempt was made to drain the hematoma, which was not possible secondary to being calcified and the patient will go home with baclofen and Percocet, baclofen a 35- and Percocet a 5-day supply. She will follow up with her primary care doctor in less than a week. In addition, advanced care planning was discussed with the patient in detail and told the need for a living will and possible power of compliance attorney was discussed in detail. Time spent reviewing the chart, discussion with the patient, reviewing of advanced care planning on the date of discharge - total of 60 minutes time spent, 30 minutes of that time was spent in advanced care planning discussion. The patient is contemplating what she would do, but she knows she does not want to be in a vegetative state, does not want to live on machines. She will further think about and clarify those wishes and put them in writing in the form of a living will.
[2016-12-01 15:41] LABS: CALCIUM 8.8 mg/dl (8.5-10.1)
== END 2016-12-01 14:40 | disposition home or self-care (01) | DRG 556 ==
LOC: ENRESERVDT → ENRESERVTM → C.EDB 05:17 → C.MS2W 08:25
PROVIDERS: ADMIT Hospitalist; ATTEND Family Medicine
DX: M79.81 Nontraumatic hematoma of soft tissue (principal); N13.2 Hydronephrosis with renal and ureteral calculous obstruction; R11.2 Nausea with vomiting, unspecified; I10 Essential (primary) hypertension; J45.909 Unspecified asthma, uncomplicated; E11.40 Type 2 diabetes mellitus with diabetic neuropathy, unspecified; J44.9 Chronic obstructive pulmonary disease, unspecified; F17.210 Nicotine dependence, cigarettes, uncomplicated; E87.6 Hypokalemia; E83.42 Hypomagnesemia; Z86.711 Personal history of pulmonary embolism

== ENCOUNTER → 2017-02-17 | Outpatient (CLI) | payer BC, OTHER ==
[~2017-02-17] MED LIST changes: +ACET-1175 PO; +DESV50TA PO; +DLC5 PO; -ERYOPO1 OP; +LRS10 PO; +OXYC-57 PO; -PRD20 PO; -PRT40 PO; -TYL325X PO; -UMEC1AER INH
[2017-02-17 15:58] LABS: INR 2.4 (0.9-1.1); PROTHROMBIN TIME (PATIENT) 26.2 SECONDS (9.0-12.0)
== END | disposition home or self-care (01) ==
LOC: C.LAB 14:46
PROVIDERS: ATTEND Family Medicine
DX: Z86.711 Personal history of pulmonary embolism (principal)

== ENCOUNTER → 2017-03-22 | Outpatient (CLI) | payer BC, OTHER ==
[2017-03-22 13:41] LABS: INR 2.8 (0.9-1.1); PROTHROMBIN TIME (PATIENT) 30.7 SECONDS (9.0-12.0)
== END | disposition home or self-care (01) ==
LOC: C.LAB 11:53
PROVIDERS: ATTEND Family Medicine
DX: Z86.711 Personal history of pulmonary embolism (principal)

== ENCOUNTER → 2017-06-08 | Outpatient (CLI) | payer BC, OTHER ==
[2017-06-08 15:59] LABS: PROTHROMBIN TIME (PATIENT) 72.6 SECONDS (9.0-12.0)
[2017-06-08 16:12] LABS: INR 6.3 (0.9-1.1)
[2017-06-08 16:13] LABS: ALT/SGPT 13 U/L (12-78); BLOOD UREA NITROGEN 13 mg/dl (7-18); BUN/CREATININE RATIO 22.1 (10-20); CALCIUM 8.9 mg/dl (8.5-10.1); CARBON DIOXIDE 30 mmol/L (21-32); CHLORIDE 105 mmol/L (98-107); CHOLESTEROL 250 mg/dl (0-200); CREATININE 0.57 mg/dl (0.60-1.20); GLUCOSE 121 mg/dl (70-99); POTASSIUM 3.1 mmol/L (3.5-5.1); SODIUM 141 mmol/L (136-145)
[2017-06-08 16:16] LABS: ALKALINE PHOSPHATASE 109 U/L (45-117); AST/SGOT 14 U/L (15-37); CHOLESTEROL/HDL RATIO 6.8; HDL CHOLESTEROL 37 mg/dl; LDL CHOLESTEROL CALCULATED 152 mg/dl; TRIGLYCERIDES 305 mg/dl (0-150); VERY LOW DENSITY LIPOPROT CALC 61 mg/dl
[2017-06-09 06:12] LABS: ESTIMATED AVERAGE GLUCOSE 151 mg/dl; HA1C FLAG Normal (Normal)
== END | disposition home or self-care (01) ==
LOC: C.LAB 14:22
PROVIDERS: ATTEND Family Medicine
DX: E78.2 Mixed hyperlipidemia (principal); I26.99 Other pulmonary embolism without acute cor pulmonale; E11.9 Type 2 diabetes mellitus without complications

== ENCOUNTER → 2017-06-14 | Outpatient (CLI) | payer BC ==
[2017-06-14 12:35] LABS: PROTHROMBIN TIME (PATIENT) 10.4 SECONDS (9.0-12.0)
== END | disposition home or self-care (01) ==
LOC: C.LAB 10:35
PROVIDERS: ATTEND Family Medicine
DX: Z86.711 Personal history of pulmonary embolism (principal)

== ENCOUNTER → 2017-07-13 | Outpatient (CLI) | payer BC ==
--- NOTE | 2017-07-13 10:15 | DIAGNOSTIC IMAGING REPORT ---
ABDOMEN COMPLETE (US) HISTORY: Pain ABDOMINAL PAIN. COMPARISON: None. FINDINGS: Pancreas: The pancreas demonstrates a normal echotexture. Liver: Unremarkable. Gallbladder: Trace gallbladder sludge. No shadowing gallstones. CBD: 4 mm Kidneys: No hydronephrosis. Small lower pole left renal cyst at 1.3 cm Spleen: Normal in size. Aorta: Normal in caliber. IVC: Patent. IMPRESSION: 1. Small left renal cyst. 2. Trace gallbladder sludge. 3. Study is otherwise negative. The above report was generated using voice recognition software. It may contain grammatical, syntax or spelling errors. Electronically signed by: Scout Lopez M.D. 07/13/2017 10:13 AM Dictated Date/Time: 07/13/2017 10:03 AM
== END ==
LOC: C.ULTR 09:19
PROVIDERS: ATTEND Family Medicine
DX: R10.84 Generalized abdominal pain (principal)

== ENCOUNTER → 2017-07-25 | Outpatient (CLI) | payer BC | END | disposition home or self-care (01) | LOC: C.PATHSPEC 17:08 | PROVIDERS: ATTEND Urology | DX: R31.0 Gross hematuria (principal); N20.0 Calculus of kidney; R30.0 Dysuria ==

== ENCOUNTER → 2017-07-29 | Outpatient (CLI) | payer BC ==
[2017-07-29 10:08] LABS: BASO % 0.4 %; BASO ABS # 0.03 K/uL (0-0.2); COMPLETE YES; EOS % 2.7 %; HEMATOCRIT 43.9 % (37-47); IG% 0.1 %; LYMPH % 30.8 %; LYMPH ABS # 2.26 K/uL (1.2-3.4); MEAN CELL VOLUME 87.8 fL (80-100); MEAN PLATELET VOLUME 9.8 fL (7.4-10.4); MONO % 7.4 %; NEUT % 58.6 %; PLATELET COUNT 275 K/uL (130-400); WHITE BLOOD COUNT 7.33 K/uL (4.8-10.8)
[2017-07-29 10:39] LABS: ALB/GLOB RATIO 0.9 (0.9-2); ALKALINE PHOSPHATASE 102 U/L (45-117); ALT/SGPT 13 U/L (12-78); AST/SGOT 12 U/L (15-37); BLOOD UREA NITROGEN 12 mg/dl (7-18); BUN/CREATININE RATIO 15.9 (10-20); CALCIUM 9.3 mg/dl (8.5-10.1); CARBON DIOXIDE 26 mmol/L (21-32); CHLORIDE 108 mmol/L (98-107); CREATININE 0.74 mg/dl (0.60-1.20); GLUCOSE 148 mg/dl (70-99); POTASSIUM 3.6 mmol/L (3.5-5.1); SODIUM 139 mmol/L (136-145)
== END | disposition home or self-care (01) ==
LOC: C.LAB 09:36
PROVIDERS: ATTEND Surgery
DX: Z01.812 Encounter for preprocedural laboratory examination (principal); K82.8 Other specified diseases of gallbladder; R31.0 Gross hematuria; N20.0 Calculus of kidney; R30.0 Dysuria

== ENCOUNTER → 2017-08-10 | Outpatient (CLI) | payer BC ==
[~2017-08-10] MED LIST changes: +CMD6 PO; +MCRK/10 PO; +OPTIRAY 320 IV PRN
--- NOTE | 2017-08-10 14:16 | DIAGNOSTIC IMAGING REPORT ---
CT ABD/PELVIS COMBO CLINICAL HISTORY: R31.0 Gross [id number] [id number] Dysuria COMPARISON STUDY: 11/25/2016 TECHNIQUE: Unenhanced images were obtained through the abdomen and pelvis. The patient was injected with 50 cc Optiray 320. After 5 minute delay, the patient was reimaged in a dynamic helical fashion during intravenous administration of additional 44 cc of Optiray 320. A dose lowering technique was utilized adhering to the principles of ALARA. CT DOSE: 1031.22 mGycm FINDINGS: Lower chest: The heart is normal in size and configuration, without pericardial effusion. The lung bases and pleural spaces are clear. Liver: The contrast-enhanced liver is normal in size, contour, and attenuation. There is no intrahepatic biliary ductal dilatation. The hepatic veins and portal veins are patent. Gallbladder: Unremarkable. Spleen: Normal in size and attenuation. Pancreas: Unremarkable. Adrenal glands: Unremarkable. Kidneys: No ureteral or bladder calculi are visualized. Punctate bilateral renal calcifications are likely vascular. There are 2 tiny right renal hypodensities, the largest of which measures 5.6 mm. These are felt to represent cysts. There is a 2 cm lower pole left renal cyst. There is an 8 mm mid pole left renal hypodensity which slightly exceeds water attenuation and is therefore indeterminate. There is a 6 mm mid pole left renal hypodensity which also exceeds water attenuation and is therefore indeterminate. Despite being indeterminate, both of these lesions remain essentially unchanged in size when compared the prior March 2014 study. This therefore favors benign cysts. No collecting system or ureteral lesions are visualized Bowel: There are no transition zones indicate bowel obstruction. There is no evidence of acute diverticulitis. The appendix appears normal. Peritoneum: There is no intraperitoneal free air or abdominal ascites. Vasculature: There is no evidence of abdominal aortic dilatation. There is an indwelling IVC filter. The inferior struts protrude beyond the IVC lumen. Adenopathy: None. Pelvic viscera: The bladder, and pelvic viscera are unremarkable. Skeletal structures: No destructive osseous lesions are seen. IMPRESSION: 1. Relatively stable bilateral hypodense renal lesions, likely representing cysts 2. Punctate bilateral renal calcifications. Vascular calcifications are favored over calculi 3. No evidence of bowel obstruction. No evidence of free air 4. Normal appendix. No evidence of acute diverticulitis. 5. No uroepithelial lesions are visualized Electronically signed by: Gregory White M.D. 08/10/2017 2:15 PM Dictated Date/Time: 08/10/2017 2:03 PM
== END | disposition home or self-care (01) ==
LOC: C.CTS 12:44
PROVIDERS: ATTEND Urology
DX: N20.0 Calculus of kidney (principal); R31.0 Gross hematuria; R30.0 Dysuria; N28.9 Disorder of kidney and ureter, unspecified

== ENCOUNTER → 2017-08-12 | Outpatient (CLI) | payer BC ==
[~2017-08-12] MED LIST changes: -DESV50TA PO; -DLC5 PO; +HYDR-5688 PO; -LRS10 PO; +LVNIS100; -OPTIRAY 320 IV PRN; -OXYC-57 PO; -WARF-286 PO; -WARF1TAB6 PO
[2017-08-12 13:10] LABS: BLOOD UREA NITROGEN 8 mg/dl (7-18)
[2017-08-12 13:23] LABS: BUN/CREATININE RATIO 10.4 (10-20); CREATININE 0.77 mg/dl (0.60-1.20)
== END | disposition home or self-care (01) ==
LOC: C.LAB 10:47
PROVIDERS: ATTEND Urology
DX: E11.9 Type 2 diabetes mellitus without complications (principal); R31.0 Gross hematuria

== ENCOUNTER 2017-08-18 05:04 | Day surgery (SDC) | payer BC ==
[2017-08-11 09:54] VITALS: Ht 167.6 cm; Wt 62.4 kg
[~2017-08-18] VITALS: Ht 167.6 cm; Wt 62.4 kg
[~2017-08-18 05:04] MED LIST changes: -HYDR-5688 PO; -LVNIS100
[2017-08-18] MEDS ORDERED: LVNIS100 (05:37)
[2017-08-18 05:40] VITALS: BP 146/67; PULSE 103; TEMP 36.7; O2SAT 93
[2017-08-18] MEDS ORDERED: LACTATED RINGER'S 1000ML 1,000 ML IV SCH ×2 (06:00)
[2017-08-18] MEDS ORDERED: CEFAZOLIN 2000MG IV PUSH 10 ML IV SCH (06:00)
[2017-08-18 06:40] LABS: PTT PATIENT 24.9 SECONDS (21.0-31.0)
[2017-08-18] MEDS ORDERED: MIDAZOLAM HCL 1 MG/ML 2ML VIAL ONE (06:49)
[2017-08-18] MEDS ORDERED: FENTANYL CITRATE INJ 50 MCG/1 ML 2 ML VIAL ONE ×2 (06:49→08:31)
[2017-08-18] MEDS ORDERED: BUPIVACAINE/EPINEPHRINE 0.5% MPF 1:200,000 30 ML VIAL ONE (06:56)
--- NOTE | 2017-08-18 06:58 | History & Physical Bridge Note ---
H&P Re-Evaluation Bridge Note: I have examined the patient, reviewed the History & Physical and in the interval since the performance of the History & Physical I have noted the following changes of clinical significance: No changes noted
[2017-08-18] MEDS ORDERED: LIDOCAINE HCL 2% 2 ML VIAL (20MG/ML) ONE (07:38)
[2017-08-18] MEDS ORDERED: NEOSTIGMINE METHYLSULFATE 5 MG/5 ML SYR ONE (07:38)
[2017-08-18] MEDS ORDERED: EpHEDrine SULFATE 50MG/5ML SYR ONE (07:38)
[2017-08-18] MEDS ORDERED: DEXAMETHASONE SOD INJ 4 MG/ML VIAL ONE (07:38)
[2017-08-18] MEDS ORDERED: PROPOFOL IV EMULSION 10 MG/ML 20 ML VIAL IV ONE (07:38)
[2017-08-18] MEDS ORDERED: ONDANSETRON INJ 2 MG/ML 2 ML VIAL ONE (07:38)
[2017-08-18] MEDS ORDERED: ROCURONIUM BROMIDE 10 MG/ML 5 ML VIAL IV ONE (07:38)
[2017-08-18] MEDS ORDERED: PHENYLEPHRINE 100MCG/ML 5ML SYR ONE (07:38)
[2017-08-18] MEDS ORDERED: GLYCOPYRROLATE INJ 0.2 MG/ML VIAL ONE (07:38)
[2017-08-18] MEDS ORDERED: LARYING-O-JET KIT (LTA) ONE (07:47)
[2017-08-18] MEDS ORDERED: ATROPINE SULFATE 0.1 MG/ML 5ML SYR IV PRN (08:00)
[2017-08-18] MEDS ORDERED: FENTANYL CITRATE INJ 50 MCG/1 ML 2 ML VIAL IV PRN (08:00)
[2017-08-18] MEDS ORDERED: ONDANSETRON INJ 2 MG/ML 2 ML VIAL IV PRN ×2 (08:00→08:30)
[2017-08-18] MEDS ORDERED: EpHEDrine SULFATE INJ 50 MG/ML AMP IV PRN (08:00)
[2017-08-18] MEDS ORDERED: ALBUTEROL HFA INHALER 8.5 GM INH ONE (08:03)
[2017-08-18] MEDS ORDERED: SODIUM CHLORIDE 0.9% 1000ML 1,000 ML IV SCH (08:16)
[2017-08-18] MEDS ORDERED: HYDR-5688 PO (08:18)
--- NOTE | 2017-08-18 08:24 | Discharge Instructions ---
Discharge Instructions Date of Service Aug 18, 2017. Admission Reason for Admission: Gallbladder Sludge Discharge Discharge Diagnosis / Problem: Gallbladder Sludge Discharge Goals Goal(s): Decrease discomfort, Improve function Activity Recommendations Activity Limitations: as noted below Lifting Limitations: no more than 10 pounds Exercise/Sports Limitations: until after follow-up appointment May Resume Sexual Activity: after follow-up appointment Shower/Bathe: tomorrow Driving or Machine Use: resume 1 day after discharge . Instructions / Follow-Up Instructions / Follow-Up You may shower tomorrow AM- you have surgical glue, Dermabond, on each of your incisions. You can remove your dressings tomorrow AM and then shower as usual. Please follow-up with Dr. Barth in the office in 1-2 weeks. Please call the office at [phone] to schedule your follow-up appointment if you do not have one already. Please call the office with any questions or concerns. You may restart your Coumadin tomorrow, 08/19/2017. Current Hospital Diet Patient's current hospital diet: Discharge Diet Recommended Diet: Regular Diet Procedures Procedures Performed: Laparoscopic Cholecystectomy Pending Studies Studies pending at discharge: yes List of pending studies: Pathology report. Laboratory Results Hemoglobin A1c Test 06/08/17 14:46 Range/Units Estimated Average Glucose 151 mg/dl Hemoglobin A1c 6.9 H 4.5-5.6 % Lipid Panel Test 06/08/17 14:46 Range/Units Triglycerides Level 305 H 0-150 mg/dl Cholesterol Level 250 H 0-200 mg/dl HDL Cholesterol 37 mg/dl Cholesterol/HDL Ratio 6.8 LDL Cholesterol, Calculated 152 mg/dl Medical Emergencies . Who to Call and When: Medical Emergencies: If at any time you feel your situation is an emergency, please call 911 immediately. . Non-Emergent Contact Non-Emergency issues call your: Primary Care Provider, Surgeon Call Non-Emergent contact if: temperature is above 101.5, your pain is not controlled, wound has increased drainage, wound has increased redness . "Provider Documentation" section prepared by Amanda Bay. . VTE Core Measure Inpt VTE Proph given/why not?: SCD's [place] Drug Monitoring Program Search Results: patient reviewed within database, no issues identified
--- NOTE | 2017-08-18 08:28 | [facility] Operative Report ---
Operative Report Operative Date Aug 18, 2017. Pre-Operative Diagnosis Gallbladder Sludge Post-Operative Diagnosis Same as preoperative Procedure(s) Performed Laparoscopic Cholecystectomy Surgeon Dr. Nasir Barth Sugar Trucker Surgeon(s) Amanda Bay PA-C Estimated Blood Loss 5ml Findings mild adhesions, otherwise normal anatomy Specimens A.) Gallbladder and contents Anesthesia get Complication(s) None Disposition Recovery Room / PACU Description of Procedure After informed consent was obtained the patient was taken the operating room and placed in supine position. After successful intubation the abdomen was sterilely prepped and draped in usual fashion. A supraumbilical incision was made with 11 blade scalpel and carried down through the soft tissue using electrocautery. Anterior rectus fascia was opened using electrocautery and 2 # 0 Vicryl stay sutures were placed. Peritoneum was entered using blunt finger penetration and a finger sweep was performed to take down adhesions. A 12 mm Wilcox trocar was placed and the abdomen was insufflated 18 mmHg. The laparoscope was inserted and abdomen examined 360. there was some adhesive disease in the lower abdomen but otherwise no gross abnormalities. A subxiphoid 5 mm port and 2 right upper quadrant 5 mm ports were placed under direct vision. The patient was then placed in a reverse Trendelenburg position and slightly airplaned to the left. The gallbladder was grasped and elevated superiorly and laterally. We used primarily blunt dissection to free up adhesions around the neck of the gallbladder. A [place] dissector was used to skeletonize the cystic duct twice proximally once distally and transected using a laparoscopic scissor. In Similar fashion the cystic artery was skeletonized clipped and divided. The gallbladder was then removed from the gallbladder fossa using electrocautery. It was removed intact and placed into an Endo Catch bag. Thorough irrigation of the right upper quadrant was performed. At the end of the procedure there was adequate hemostasis and no evidence of bile leaks. We looked under the left lobe liver everything appeared normal. No other gross abnormalities were seen. The gallbladder and trochars were all removed and the abdomen was desufflated. The fascia of the camera port was closed using 0 Vicryl in a figure 8 fashion. All wounds were irrigated and closed using 4-0 Monocryl. Marcaine was injected around for postoperative analgesia and skin glue used as a dressing. The patient was awakened, extubated and transferred recovery in stable condition My physician's assistant real estate manager was present throughout the entire case. She assisted in prepping the patient as well as exposure for placing the trochars. She also helped with manipulation of the gallbladder during dissection wound closure and dressing placement I attest to the content of the Intraoperative Record and any orders documented therein. Any exceptions are noted below.
[2017-08-18] MEDS ORDERED: HYDROCODONE/ACETAMIN 5/325MG TAB PO PRN ×2 (08:30)
[2017-08-18] MEDS ORDERED: KETOROLAC TROMETHAMINE 30 MG/ML VIAL IV. PRN (08:45)
[2017-08-18] MEDS ORDERED: LABETALOL HCL IV 5 MG/ML 20ML IV PRN (08:45)
[2017-08-18] MEDS ORDERED: HYDROmorphone INJ 1 MG/ML SYR IV PRN (08:45)
[2017-08-18] MEDS ORDERED: KETOROLAC TROMETHAMINE 30 MG/ML VIAL ONE (08:46)
[2017-08-18] MEDS ORDERED: LABETALOL HCL IV 5 MG/ML 20ML IV ONE (08:56)
[2017-08-18] MEDS ORDERED: HYDROmorphone INJ 1 MG/ML SYR ONE (08:57)
--- NOTE | 2017-08-18 09:17 | Anesthesiology Progress Note ---
Anesthesia Post Op Note Date & Time Aug 18, 2017 at 09:16 Vital Signs Pain Intensity: 8 Vital Signs Past 12 Hours Date Time Temp Pulse Resp B/P (MAP) Pulse Ox O2 Delivery O2 Flow Rate FiO2 08/18/17 09:15 75 22 147/80 98 Nasal Cannula 2 08/18/17 09:05 67 13 134/78 98 Nasal Cannula 2 08/18/17 08:55 66 12 209/77 98 Nasal Cannula 2 08/18/17 08:45 79 14 196/71 92 Room Air 08/18/17 08:35 82 14 208/83 100 Oxymask 10 08/18/17 08:25 92 18 199/83 100 Oxymask 10 08/18/17 08:17 36.6 99 20 194/86 100 Oxymask 10 08/18/17 05:40 36.7 103 18 146/67 (93) 93 Room Air Notes Mental Status: alert / awake / arousable, participated in evaluation Pt Amnestic to Procedure: Yes Nausea / Vomiting: adequately controlled Pain: adequately controlled Airway Patency, RR, SpO2: stable & adequate BP & HR: stable & adequate Hydration State: stable & adequate Anesthetic Complications: no major complications apparent
[2017-08-18 09:30] VITALS: BP 140/64; PULSE 75; TEMP 36.5; O2SAT 92
[2017-08-18 10:00] VITALS: BP 132/63; PULSE 86; TEMP 36.6; O2SAT 92
== END 2017-08-18 10:20 | disposition home or self-care (01) ==
LOC: C.ACU 05:04
PROVIDERS: ATTEND Surgery
DX: K82.8 Other specified diseases of gallbladder (principal); M19.90 Unspecified osteoarthritis, unspecified site; J44.9 Chronic obstructive pulmonary disease, unspecified; F32.9 Major depressive disorder, single episode, unspecified; E11.9 Type 2 diabetes mellitus without complications; F17.200 Nicotine dependence, unspecified, uncomplicated; E78.00 Pure hypercholesterolemia, unspecified; F41.9 Anxiety disorder, unspecified; M06.9 Rheumatoid arthritis, unspecified; K21.9 Gastro-esophageal reflux disease without esophagitis; Z85.3 Personal history of malignant neoplasm of breast; Z87.442 Personal history of urinary calculi; Z98.51 Tubal ligation status; Z83.3 Family history of diabetes mellitus; Z86.711 Personal history of pulmonary embolism

== ENCOUNTER → 2017-08-24 | Outpatient (CLI) | payer OTHER ==
[~2017-08-24] MED LIST changes: +AZIT250T PO; +CMD4 PO; +LVNIS100; +PRD20 PO
--- NOTE | 2017-08-24 14:16 | DIAGNOSTIC IMAGING REPORT ---
ABD/PELVIS NO IV OR ORAL CONT CT DOSE: 290.04 mGy.cm HISTORY: Pain. Nausea. K82.8 Gallbladder uyxvfeN62.9 Abdominal painR11.0 NauseaS/P LAP TECHNIQUE: Multiaxial CT images of the abdomen and pelvis were performed without contrast. A dose lowering technique was utilized adhering to the principles of ALARA. COMPARISON STUDY: 08/10/2017 FINDINGS: Lung bases are clear. Liver spleen and pancreas appear uniform. There has been an interval cholecystectomy. In inferior vena cava filter is present. Several small renal calcifications are present. There is no evidence for hydronephrosis or obstruction. Small renal cysts are unchanged. Ureters normal in course and caliber. There is no evidence for ureteral distention. Bladder is midline. Myometrial uterine calcifications are noted and appear similar. The appendix is normal. Bowel pattern is nonobstructive. IMPRESSION: 1. Interval cholecystectomy. 2. Otherwise no acute process of the abdomen or pelvis. 3. Normal appendix. 4. No evidence for urinary tract obstruction. The above report was generated using voice recognition software. It may contain grammatical, syntax or spelling errors. Electronically signed by: Scout Lopez M.D. 08/24/2017 2:15 PM Dictated Date/Time: 08/24/2017 2:10 PM
[2017-08-24 14:37] LABS: BASO % 0.2 %; BASO ABS # 0.02 K/uL (0-0.2); EOS % 1.9 %; EOS ABS # 0.17 K/uL (0-0.5); HEMATOCRIT 42.8 % (37-47); IG# 0.01 K/uL (0.00-0.02); LYMPH % 25.5 %; LYMPH ABS # 2.23 K/uL (1.2-3.4); MEAN CELL VOLUME 88.8 fL (80-100); MEAN CORPUSCULAR HGB CONC 32.7 g/dl (32-36); MEAN PLATELET VOLUME 10.2 fL (7.4-10.4); MONO % 6.8 %; NEUT % 65.5 %; NEUT ABS # 5.73 K/uL (1.4-6.5); PLATELET COUNT 289 K/uL (130-400); RED CELL DISTRIBUTION WIDTH CV 14.2 % (11.5-14.5); RED CELL DISTRIBUTION WIDTH SD 46.3 fL (36.4-46.3); WHITE BLOOD COUNT 8.76 K/uL (4.8-10.8)
== END | disposition home or self-care (01) ==
LOC: C.CTS 13:35
PROVIDERS: ATTEND Surgery
DX: R10.9 Unspecified abdominal pain (principal); K82.8 Other specified diseases of gallbladder; R11.0 Nausea

== ENCOUNTER → 2017-09-15 | Outpatient (CLI) | payer OTHER ==
[~2017-09-15] MED LIST changes: -AZIT250T PO; -CMD4 PO; -PRD20 PO
[2017-09-15 14:57] LABS: INR 0.9 (0.9-1.1)
== END | disposition home or self-care (01) ==
LOC: C.LAB 12:48
PROVIDERS: ATTEND Family Medicine
DX: Z86.711 Personal history of pulmonary embolism (principal)

== ENCOUNTER 2017-09-28 21:08 | Observation (INO) | payer OTHER ==
[~2017-09-28] VITALS: Ht 167.6 cm; Wt 63.9 kg
[2017-09-28] MEDS ORDERED: METHYLPREDNISOLONE 125 MG VIAL IV STA (21:20)
[2017-09-28] MEDS ORDERED: LEVALBUTEROL 1.25MG/0.5ML NEB INH STA ×2 (21:20→23:22)
[2017-09-28] MEDS ORDERED: IPRATROPIUM BROMIDE NEB SOLN 0.02% 2.5 ML VIAL INH STA ×2 (21:20→23:22)
[2017-09-28] MEDS ORDERED: ONDANSETRON INJ 2 MG/ML 2 ML VIAL IV STA (21:20)
--- NOTE | 2017-09-28 21:29 | EMERGENCY ROOM VISIT NOTE ---
History Report prepared by Meghann: Kory Reinoso Under the Supervision of: Dr. Elmer Rojo M.D. First contact with patient: 21:15 Chief Complaint: RESPIRATORY PROBLEMS Stated Complaint: TROUBLE BREATHING,CHEST AND ABD PAIN,HX OF PE History of Present Illness The patient is a 67 year old female who presents to the Emergency Room with complaints of worsening shortness of breath that she has been experiencing for the past couple of days. The patient is also experiencing some pain in her left chest which is worse when she inhales. She has had Pleurisy and Pulmonary Emboli in the past and notes that this feels similar to those episodes. Her last PE occurred 5 years ago. She is currently on Coumadin and has been for many years. She does have a cough and is nauseous but she has not vomited at all. Her cough has been present for a few days as well. The patient has a history of COPD. The patient did have surgery on Gallbladder on the 19 of August, 5 weeks ago. Of note,she finished a course of steroids last week. These were given to help her breathing. She always feels better when on the steroids and then after, things seem to worsen again. 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 A total of 10 systems reviewed and were otherwise negative. Past Medical & Surgical Medical Problems: (1) Asthma (2) Bronchitis (3) Cellulitis and abscess of face (4) COPD (chronic obstructive pulmonary disease) (5) Diabetes (6) Diabetic neuropathy (7) Emphysema lung (8) facial cellulitis worsening (9) Gastrointestinal bleed (10) GI bleed (11) Heart disease (12) PE (pulmonary embolism) (13) Pneumonia (14) Pulmonary embolism (15) SOB (shortness of breath) (16) Stroke (17) Tachycardia Family History Cancer Diabetes mellitus Hypertension Social History Smoking Status: Current Every Day Smoker Alcohol Use: none Drug Use: marijuana Marital Status: Housing Status: lives with family, lives with significant other Occupation Status: retired Current/Historical Medications Scheduled Gabapentin (Neurontin), 300 MG PO TID Ipratropium-Albuterol (Combivent Respimat), 1 PUFF PO Q4 Metformin Hcl (Glucophage), 1,000 MG PO BID Warfarin Sod (Coumadin), 6 MG PO DAILY Allergies Coded Allergies: Sulfa Antibiotics (Verified Allergy, Severe, RASH, SHORTNESS OF BREATH, 09/28/17) Bacitracin (Verified Allergy, Intermediate, facial swelling and erythema, 09/28/17) Physical Exam Vital Signs Date Time Temp Pulse Resp B/P (MAP) Pulse Ox O2 Delivery O2 Flow Rate FiO2 09/29/17 00:47 101 16 133/69 95 Nasal Cannula 2.0 09/28/17 23:05 101 22 150/79 98 Nasal Cannula 2.0 09/28/17 21:54 103 09/28/17 21:51 98 Nasal Cannula 2.0 09/28/17 21:33 98 Nasal Cannula 2.0 09/28/17 21:33 98 Nasal Cannula 2.0 09/28/17 21:11 36.8 130 26 167/82 95 Room Air Physical Exam GENERAL: Patient is in mild respiratory distress. HEENT: No acute trauma, normocephalic atraumatic, mucous membranes moist, no nasal congestion, no scleral icterus. NECK: No stridor, no adenopathy, no meningismus, trachea is midline. LUNGS: There is wheezing with diminished breath sounds bilaterally. Breath sounds are equal. There is an increased respiratory rate and some mild respiratory distress with a dry cough. HEART: Tachycardic with a regular rhythm, no murmurs. ABDOMEN: Soft, nontender, bowel sounds positive, no hernias, no peritonitis. EXTREMITIES: No cyanosis or edema, full range of motion of all the joints without pain or difficulty, no signs for acute trauma. NEUROLOGIC: Oriented x 3, no acute motor or sensory deficits, no focal weakness. SKIN: No rash, no jaundice, no diaphoresis. Medical Decision & Procedures ER Provider Diagnostic Interpretation: Radiology results as stated below per my review and radiologist interpretation: CHEST ONE VIEW PORTABLE HISTORY: EVALUATE RESPIRATORY DISTRESS.DYSPNEA COMPARISON: Chest 08/01/2016. FINDINGS: The lungs are clear. Cardiac silhouette is normal in size. No pleural effusions. No pneumothorax. Surgical clips within the right breast. IMPRESSION: No acute process. Electronically signed by: Balwinder Nam M.D. 09/28/2017 10:09 PM Dictated Date/Time: 09/28/2017 10:08 PM CHEST CTA for PULMONARY ARTERIES CT DOSE: 265.53 mGy.cm HISTORY: Atypical chest pain. TECHNIQUE: Multiaxial CT images of the chest were performed following the intravenous administration of contrast to evaluate the pulmonary arteries. Maximal intensity projection images were also obtained. A dose lowering technique was utilized adhering to the principles of ALARA. COMPARISON STUDY: Chest CTA 11/25/2016. FINDINGS: Cholecystectomy. The liver, spleen, adrenal glands are within normal limits. The left thyroid lobe appears surgically absent. There is a 1 cm nodule within the right thyroid lobe posteriorly. This does not appear to be significantly changed. No mediastinal or hilar lymphadenopathy. Surgical clips seen within the right breast. No pleural or pericardial effusions. No suspicious lytic or blastic osseous lesions. No pneumothorax. The central airways are patent. A single opacified distal right lower lobe bronchus. Stable linear scarlike density seen within the left lung apex and lingula. No new focal lung consolidations to suggest pneumonia. Faint groundglass densities at the left lung base posteriorly favor mild dependent change. No evidence for an aortic dissection. Mild calcified plaque within the thoracic aorta. Faint linear filling defects within the single segmental branch of the right lower lobe on images 121 10/20/1930. This is consistent with nonocclusive chronic pulmonary emboli identified. IMPRESSION: 1. Nonocclusive chronic pulmonary emboli seen within a single segmental branch of the right lower lobe. No evidence for acute pulmonary embolus. 2. Single partially opacified right lower lobe distal bronchus. 3. No new focal lung consolidations to suggest pneumonia. 4. A 1 cm right thyroid nodule. Electronically signed by: Balwinder Nam M.D. 09/28/2017 11:05 PM Dictated Date/Time: 09/28/2017 10:55 PM Laboratory Results Test 09/28/17 21:46 09/28/17 21:47 09/28/17 23:20 Influenza Type A (RT-PCR) Neg for Influ A (NEG) Influenza Type B (RT-PCR) Neg for Influ B (NEG) Activated Partial Thromboplast Time 29.9 SECONDS (21.0-31.0) Partial Thromboplastin Ratio 1.2 Total Bilirubin 0.4 mg/dl (0.2-1) Aspartate Amino Transf (AST/SGOT) 10 U/L (15-37) Alanine Aminotransferase (ALT/SGPT) 13 U/L (12-78) Alkaline Phosphatase 101 U/L (45-117) Troponin I < 0.015 ng/ml (0-0.045) Total Protein 7.2 gm/dl (6.4-8.2) Albumin 3.4 gm/dl (3.4-5.0) Globulin 3.8 gm/dl (2.5-4.0) Albumin/Globulin Ratio 0.9 (0.9-2) Urine Color YELLOW Urine Appearance CLEAR (CLEAR) Urine pH 6.5 (4.5-7.5) Urine Specific Gilbert 1.039 (1.000-1.030) Urine Protein NEG (NEG) Urine Glucose (UA) NEG (NEG) Urine Ketones NEG (NEG) Urine Occult Blood NEG (NEG) Urine Nitrite NEG (NEG) Urine Bilirubin NEG (NEG) Urine Urobilinogen NEG (NEG) Urine Leukocyte Esterase MODERATE (NEG) Urine WBC (Auto) 5-10 /hpf (0-5) Urine RBC (Auto) 0-4 /hpf (0-4) Urine Hyaline Casts (Auto) 1-5 /lpf (0-5) Urine Epithelial Cells (Auto) >30 /lpf (0-5) Urine Bacteria (Auto) NEG (NEG) Laboratory results reviewed by me. Medications Administered Medications (Trade) Dose Ordered Sig/Sarina Route Start Time Stop Time Status Last Admin Dose Admin Ondansetron HCl (Zofran Inj) 4 mg NOW STAT IV 09/28/17 21:20 09/28/17 21:26 DC 09/28/17 21:52 4 MG Morphine Sulfate (MoRPHine SULFATE INJ) 4 mg Q30M PRN IV 09/28/17 21:30 09/29/17 02:42 DC 09/28/17 23:25 4 MG Levalbuterol (Xopenex 1.25MG/ 0.5ML Neb) 1.25 mg NOW STAT INH 09/28/17 21:20 09/28/17 21:26 DC 09/28/17 21:54 1.25 MG Ipratropium [place] (Atrovent 0.02% 0.5MG/2.5ML Neb) 0.5 mg NOW STAT INH 09/28/17 21:20 09/28/17 21:26 DC 09/28/17 21:54 0.5 MG Methylprednisolone Sodium Succinate (Solu-Medrol IV) 80 mg NOW STAT IV 09/28/17 21:20 09/28/17 21:26 DC 09/28/17 21:53 80 MG Sodium Chloride 500 ml @ 999 mls/hr Q31M STAT IV 09/28/17 23:08 09/28/17 23:38 DC 09/28/17 23:25 999 MLS/HR Ceftriaxone Sodium (Rocephin Inj) 1 gm NOW STAT IV 09/28/17 23:11 09/28/17 23:12 DC 09/28/17 23:23 1 GM Levalbuterol (Xopenex 1.25MG/ 0.5ML Neb) 1.25 mg NOW STAT INH 09/28/17 23:22 09/28/17 23:23 DC 09/28/17 23:47 1.25 MG Ipratropium [place] (Atrovent 0.02% 0.5MG/2.5ML Neb) 0.5 mg NOW STAT INH 09/28/17 23:22 09/28/17 23:23 DC 09/28/17 23:47 0.5 MG ECG Indication: SOB/dyspnea Rate (beats per minute): 108 Rhythm: sinus tachycardia Findings: other (ST elevation, No PACs, No PVCs. ) Change: Patient's electrocardiogram interpreted by me. ED Course 2115: The patient was evaluated in room A11B. A complete history and physical exam was performed. 2119: Ordered Solu-Medrol 80 mg IV, Ipratropium 0.5 mg ING, Levalbuterol 1.25 mg INH, Zofran 4 mg IV. 0: Ordered Morphine Sulfate 4 mg IV. 8: Ordered Sodium Chloride 500 mL @ 999 mL/hr IV. 231: Ordered Rocephin 1 gm IV. 2319: I checked on the patient at this time and reviewed the results of her case. She is agreeable to an admission stay. 2322: Ordered Ipratropium 0.5 mg INF, Levalbuterol 1.25 mg INH. 2327: I discussed the case with Dr. Martin - [facility] Hospitalist. He will evaluate the patient for further treatment. Medical Decision Differential Diagnosis includes; Bronchitis, pneumonia, influenza, exacerbation of COPD, pulmonary embolism, anemia, electrolyte imbalance, and myocardial infarction. There is a mild leukocytosis, this could be consistent with infection. No anemia. No significant electrolyte abnormality, kidney failure or hepatitis. The patient appears to be in a euthyroid state. INR is subtherapeutic for someone using Coumadin. Influenza testing is negative. Blood cultures are pending. Chest film does not show pneumonia or CHF. There was no pneumothorax. Urinalysis does not show infection. EKG shows a sinus rhythm, no acute ischemia. Cardiac enzyme testing times one is not consistent with acute cardiac injury. Chest CT shows old pulmonary emboli, no acute embolus. Bronchial congestion was seen. The patient received a Xopenex Atrovent neb, a second Xopenex Atrovent neb was also given. She received IV ceftriaxone and IV Zofran and IV morphine. She was given IV Solu-Medrol and IV saline. The patient's heart rate has improved, she does seem more comfortable. She was quite dyspneic though when she first arrived. I do think a hospital stay is warranted. The patient is too short of breath to be discharged. She requires further care in the hospital. I did speak with her and with the pillowcase turner. The on-call hospitalist was consulted. At this point, the patient appears to have acute bronchitis with an exacerbation of her COPD. Medication Reconcilliation Current Medication List: was personally reviewed by me Blood Pressure Screening Patient's blood pressure: Elevated blood pressure Referred to hospitalist. Consults Time Called: 2326 Consulting Physician: Dr. Veronica LOPEZ Hospitalist Returned Call: [phone] I discussed the case with Dr. Veronica LOPEZ [facility]. He will evaluate the patient for further treatment. Impression Primary Impression: Acute bronchitis Additional Impressions: Tachycardia SOB (shortness of breath) COPD with exacerbation Scribe Attestation The scribe's documentation has been prepared under my direction and personally reviewed by me in its entirety. I confirm that the note above accurately reflects all work, treatment, procedures, and medical decision making performed by me. Departure Information Dispostion Being Evaluated By Hospitalist Referrals Denis Samuel DO (PCP) Patient Instructions My [facility] Problem Qualifiers
[2017-09-28] MEDS ORDERED: OPTIRAY 320 IV PRN (21:30)
[2017-09-28] MEDS: MoRPHine SULFATE 4 MG/ML 1 ML CARP\\VIAL IV PRN ×2 (21:53→23:25)
[2017-09-28] MEDS ORDERED: ACETAMINOPHEN 325 MG SUPP PR STA (21:55)
[2017-09-28 22:02] LABS: BASO % 0.3 %; BASO ABS # 0.04 K/uL (0-0.2); EOS % 1.1 %; EOS ABS # 0.13 K/uL (0-0.5); HEMATOCRIT 41.1 % (37-47); HEMOGLOBIN 13.3 g/dL (12.0-16.0); IG# 0.04 K/uL (0.00-0.02); LYMPH % 23.3 %; LYMPH ABS # 2.66 K/uL (1.2-3.4); MEAN CELL VOLUME 89.9 fL (80-100); MEAN CORPUSCULAR HEMOGLOBIN 29.1 pg (25-34); MEAN CORPUSCULAR HGB CONC 32.4 g/dl (32-36); MEAN PLATELET VOLUME 9.9 fL (7.4-10.4); MONO % 7.3 %; MONO ABS # 0.84 K/uL (0.11-0.59); NEUT % 67.7 %; NEUT ABS # 7.72 K/uL (1.4-6.5); PLATELET COUNT 280 K/uL (130-400); RED CELL DISTRIBUTION WIDTH CV 14.2 % (11.5-14.5); RED CELL DISTRIBUTION WIDTH SD 46.1 fL (36.4-46.3); WHITE BLOOD COUNT 11.43 K/uL (4.8-10.8)
--- NOTE | 2017-09-28 22:10 | DIAGNOSTIC IMAGING REPORT ---
CHEST ONE VIEW PORTABLE HISTORY: EVALUATE RESPIRATORY DISTRESS.DYSPNEA COMPARISON: Chest 08/01/2016. FINDINGS: The lungs are clear. Cardiac silhouette is normal in size. No pleural effusions. No pneumothorax. Surgical clips within the right breast. IMPRESSION: No acute process. Electronically signed by: Balwinder Nam M.D. 09/28/2017 10:09 PM Dictated Date/Time: 09/28/2017 10:08 PM
[2017-09-28 22:11] LABS: INR 1.4 (0.9-1.1); PTT PATIENT 29.9 SECONDS (21.0-31.0)
[2017-09-28 22:20] LABS: ALBUMIN 3.4 gm/dl (3.4-5.0); ALT/SGPT 13 U/L (12-78); BLOOD UREA NITROGEN 6 mg/dl (7-18); CALCIUM 8.7 mg/dl (8.5-10.1); CARBON DIOXIDE 28 mmol/L (21-32); GLUCOSE 94 mg/dl (70-99); POTASSIUM 3.5 mmol/L (3.5-5.1); SODIUM 140 mmol/L (136-145)
[2017-09-28 22:25] LABS: ALKALINE PHOSPHATASE 101 U/L (45-117); AST/SGOT 10 U/L (15-37); TOTAL PROTEIN 7.2 gm/dl (6.4-8.2)
[2017-09-28 22:47] LABS: INFLUENZA A PCR Neg for Influ A (NEG); INFLUENZA B PCR Neg for Influ B (NEG)
--- NOTE | 2017-09-28 23:07 | DIAGNOSTIC IMAGING REPORT ---
CHEST CTA for PULMONARY ARTERIES CT DOSE: 265.53 mGy.cm HISTORY: Atypical chest pain. TECHNIQUE: Multiaxial CT images of the chest were performed following the intravenous administration of contrast to evaluate the pulmonary arteries. Maximal intensity projection images were also obtained. A dose lowering technique was utilized adhering to the principles of ALARA. COMPARISON STUDY: Chest CTA 11/25/2016. FINDINGS: Cholecystectomy. The liver, spleen, adrenal glands are within normal limits. The left thyroid lobe appears surgically absent. There is a 1 cm nodule within the right thyroid lobe posteriorly. This does not appear to be significantly changed. No mediastinal or hilar lymphadenopathy. Surgical clips seen within the right breast. No pleural or pericardial effusions. No suspicious lytic or blastic osseous lesions. No pneumothorax. The central airways are patent. A single opacified distal right lower lobe bronchus. Stable linear scarlike density seen within the left lung apex and lingula. No new focal lung consolidations to suggest pneumonia. Faint groundglass densities at the left lung base posteriorly favor mild dependent change. No evidence for an aortic dissection. Mild calcified plaque within the thoracic aorta. Faint linear filling defects within the single segmental branch of the right lower lobe on images 121 10/20/1930. This is consistent with nonocclusive chronic pulmonary emboli identified. IMPRESSION: 1. Nonocclusive chronic pulmonary emboli seen within a single segmental branch of the right lower lobe. No evidence for acute pulmonary embolus. 2. Single partially opacified right lower lobe distal bronchus. 3. No new focal lung consolidations to suggest pneumonia. 4. A 1 cm right thyroid nodule. Electronically signed by: Balwinder Nam M.D. 09/28/2017 11:05 PM Dictated Date/Time: 09/28/2017 10:55 PM
[2017-09-28] MEDS ORDERED: SODIUM CHLORIDE 0.9% 500ML 500 ML IV STA (23:08)
[2017-09-28] MEDS ORDERED: CEFTRIAXONE SOD INJ 1 GM ADDVIAL IV STA (23:11)
[2017-09-29] VITALS (9 sets, daily range): BP systolic 148–161; BP diastolic 70–84; PULSE 71–104; TEMP 36.5–36.9; O2SAT 93–97; Ht 167.6 cm; Wt 63.9 kg
--- NOTE | 2017-09-29 00:40 | History and Physical ---
History & Physical Date & Time of Service: Sep 29, 2017 at 00:19 Chief Complaint: Trouble Breathing,Chest And Abd Pain,Hx Of Pe Primary Care Physician: Denis Samuel DO History of Present Illness Source: patient, hospital records 66 yo female with history of COPD, h/o PE, DM, presented to the ED today with complaints of worsening shortness of breath over the last couple of days. She states she has a concurrent dry cough and is nauseous but not vomiting. The patient is also experiencing some pleuritic left-sided chest pain. She has had pleurisy and pulmonary emboli in the past and notes that this feels similar to those episodes. Her last PE occurred 5 years ago and she has chronically been on warfarin since, and states compliance. She says she has some degree of shortness of breath at baseline, but does no use O2 at home. She states recently she has experienced dyspnea even at rest and has intermittent palpitations which are chronic. She uses her Combivent regularly. She denies leg swelling, orthopnea or PND. She is also complaining of left neck swelling and pain that commenced a few days ago. No sore throat or trouble swallowing. Of notes the patient did have surgery on 19 of August and recently completed steroid which were prescribed to help her breathing >1 week ago. She denies weight changes, has diminished appetite, no changes in stool habits Past Medical/Surgical History Medical problems Asthma COPD Diabetes mellitus with peripheral neuropathy Coronary artery disease Coagulation disorder with chronic anticoagulation with Coumadin Pulmonary embolism History of pneumonia History of stroke Hypercholesterolemia Insomnia Anxiety S/p insertion of IVC filter Family History Cancer Diabetes mellitus Hypertension Coagulation disorder in family Social History Smoking Status: Current Every Day Smoker (1ppd - 55 pack year hx) Smokeless Tobacco Use: No Alcohol Use: none Drug Use: none, marijuana Marital Status: Housing status: lives with family Occupational Status: retired Immunizations History of Influenza Vaccine: No Influenza Vaccine Date: Aug 07, 2010 History of Tetanus Vaccine?: Unknown History of Pneumococcal: No Pneumococcal Date: May 04, 2006 History of Hepatitis B Vaccine: Unknown Multi-Drug Resistant Organisms History of MDRO: No Allergies Coded Allergies: Sulfa Antibiotics (Verified Allergy, Severe, RASH, SHORTNESS OF BREATH, 09/28/17) Bacitracin (Verified Allergy, Intermediate, facial swelling and erythema, 09/28/17) Home Medications Scheduled Azithromycin (Zithromax), 250 MG PO DAILY Gabapentin (Neurontin), 300 MG PO TID Ipratropium-Albuterol (Combivent Respimat), 1 PUFF PO Q4 Metformin Hcl (Glucophage), 1,000 MG PO BID Prednisone (Prednisone), 40 MG PO DAILY Warfarin Sod (Coumadin), 8 MG PO DAILY@16 Physical Exam Vital Signs Date Time Temp Pulse Resp B/P (MAP) Pulse Ox O2 Delivery O2 Flow Rate FiO2 09/28/17 23:05 101 22 150/79 98 Nasal Cannula 2.0 09/28/17 21:54 103 09/28/17 21:51 98 Nasal Cannula 2.0 09/28/17 21:33 98 Nasal Cannula 2.0 09/28/17 21:33 98 Nasal Cannula 2.0 09/28/17 21:11 36.8 130 26 167/82 95 Room Air General Appearance: WD/WN, no apparent distress Head: normocephalic, atraumatic Eyes: normal inspection ENT: hearing grossly normal, pharynx normal, + pertinent finding (tacky mucous membranes) Neck: supple, + adenopathy present, + pertinent finding (tenderness on palpation of left anterolateral neck) Respiratory/Chest: no respiratory distress, no accessory muscle use, + decreased breath sounds (L>R) Cardiovascular: regular rate, rhythm, no edema, normal peripheral pulses Abdomen/GI: normal bowel sounds, non tender, soft Back: normal inspection, no CVA tenderness Extremities/Musculoskelatal: no calf tenderness, normal capillary refill, no pedal edema Neurologic/Psych: alert, normal mood/affect, oriented x 3 Skin: normal color, warm/dry, no rash Diagnostics Laboratory Results Results Past 24 Hours Test 09/28/17 21:46 09/28/17 21:47 09/28/17 23:20 Range/Units Influenza Type A (RT-PCR) Neg for Influ A NEG Influenza Type B (RT-PCR) Neg for Influ B NEG White Blood Count 11.43 4.8-10.8 K/uL Red Blood Count 4.57 4.2-5.4 M/uL Hemoglobin 13.3 12.0-16.0 g/dL Hematocrit 41.1 37-47 % Mean Corpuscular Volume 89.9 80-100 fL Mean Corpuscular Hemoglobin 29.1 25-34 pg Mean Corpuscular Hemoglobin Concent 32.4 32-36 g/dl Platelet Count 280 130-400 K/uL Mean Platelet Volume 9.9 7.4-10.4 fL Neutrophils (%) (Auto) 67.7 % Lymphocytes (%) (Auto) 23.3 % Monocytes (%) (Auto) 7.3 % Eosinophils (%) (Auto) 1.1 % Basophils (%) (Auto) 0.3 % Neutrophils # (Auto) 7.72 1.4-6.5 K/uL Lymphocytes # (Auto) 2.66 1.2-3.4 K/uL Monocytes # (Auto) 0.84 0.11-0.59 K/uL Eosinophils # (Auto) 0.13 0-0.5 K/uL Basophils # (Auto) 0.04 0-0.2 K/uL RDW Standard Deviation 46.1 36.4-46.3 fL RDW Coefficient of Variation 14.2 11.5-14.5 % Immature Granulocyte % (Auto) 0.3 % Immature Granulocyte # (Auto) 0.04 0.00-0.02 K/uL Prothrombin Time 14.5 9.0-12.0 SECONDS Prothromb Time International Ratio 1.4 0.9-1.1 Activated Partial Thromboplast Time 29.9 21.0-31.0 SECONDS Partial Thromboplastin Ratio 1.2 Sodium Level 140 136-145 mmol/L Potassium Level 3.5 3.5-5.1 mmol/L Chloride Level 107 98-107 mmol/L Carbon Dioxide Level 28 21-32 mmol/L Anion Gap 5.0 3-11 mmol/L Blood Urea Nitrogen 6 7-18 mg/dl Creatinine 0.70 0.60-1.20 mg/dl Est Creatinine Clear Calc Drug Dose 72.4 ml/min Estimated GFR () 102.5 Estimated GFR (Non- 88.4 BUN/Creatinine Ratio 8.5 10-20 Random Glucose 94 70-99 mg/dl Calcium Level 8.7 8.5-10.1 mg/dl Total Bilirubin 0.4 0.2-1 mg/dl Aspartate Amino Transf (AST/SGOT) 10 15-37 U/L Alanine Aminotransferase (ALT/SGPT) 13 12-78 U/L Alkaline Phosphatase 101 45-117 U/L Troponin I < 0.015 0-0.045 ng/ml Total Protein 7.2 6.4-8.2 gm/dl Albumin 3.4 3.4-5.0 gm/dl Globulin 3.8 2.5-4.0 gm/dl Albumin/Globulin Ratio 0.9 0.9-2 Urine Color YELLOW Urine Appearance CLEAR CLEAR Urine pH 6.5 4.5-7.5 Urine Specific [place] 1.039 1.000-1.030 Urine Protein NEG NEG Urine Glucose (UA) NEG NEG Urine Ketones NEG NEG Urine Occult Blood NEG NEG Urine Nitrite NEG NEG Urine Bilirubin NEG NEG Urine Urobilinogen NEG NEG Urine Leukocyte Esterase MODERATE NEG Urine WBC (Auto) 5-10 0-5 /hpf Urine RBC (Auto) 0-4 0-4 /hpf Urine Hyaline Casts (Auto) 1-5 0-5 /lpf Urine Epithelial Cells (Auto) >30 0-5 /lpf Urine Bacteria (Auto) NEG NEG Microbiology Results 09/28/17 Blood Culture, Received Pending 09/28/17 Blood Culture, Received Pending Diagnostic Radiology CHEST ONE VIEW PORTABLE HISTORY: EVALUATE RESPIRATORY DISTRESS.DYSPNEA COMPARISON: Chest 08/01/2016. FINDINGS: The lungs are clear. Cardiac silhouette is normal in size. No pleural effusions. No pneumothorax. Surgical clips within the right breast. IMPRESSION: No acute process. CHEST CTA for PULMONARY ARTERIES CT DOSE: 265.53 mGy.cm HISTORY: Atypical chest pain. TECHNIQUE: Multiaxial CT images of the chest were performed following the intravenous administration of contrast to evaluate the pulmonary arteries. Maximal intensity projection images were also obtained. A dose lowering technique was utilized adhering to the principles of ALARA. COMPARISON STUDY: Chest CTA 11/25/2016. FINDINGS: Cholecystectomy. The liver, spleen, adrenal glands are within normal limits. The left thyroid lobe appears surgically absent. There is a 1 cm nodule within the right thyroid lobe posteriorly. This does not appear to be significantly changed. No mediastinal or hilar lymphadenopathy. Surgical clips seen within the right breast. No pleural or pericardial effusions. No suspicious lytic or blastic osseous lesions. No pneumothorax. The central airways are patent. A single opacified distal right lower lobe bronchus. Stable linear scarlike density seen within the left lung apex and lingula. No new focal lung consolidations to suggest pneumonia. Faint groundglass densities at the left lung base posteriorly favor mild dependent change. No evidence for an aortic dissection. Mild calcified plaque within the thoracic aorta. Faint linear filling defects within the single segmental branch of the right lower lobe on images 121 [birth year]/20/1932. This is consistent with nonocclusive chronic pulmonary emboli identified. IMPRESSION: 1. Nonocclusive chronic pulmonary emboli seen within a single segmental branch of the right lower lobe. No evidence for acute pulmonary embolus. 2. Single partially opacified right lower lobe distal bronchus. 3. No new focal lung consolidations to suggest pneumonia. 4. A 1 cm right thyroid nodule. Impression Assessment and Plan 66-year-old female presented to the emergency department with lower abdominal pain, nausea, vomiting and diarrhea for the last several days. Also notes some shortness of breath. Workup in the emergency department is significant for a 5 mm left ureteral obstructing stone and a hematoma in the rectus musculature of the abdomen. COPD exacerbation with possible bronchus mucous plugging - CT chest: Single partially opacified right lower lobe distal bronchus. No new focal lung consolidations to suggest pneumonia. 4. A 1 cm right thyroid nodule. - O2 via NC, wean as tolerated - PO Azithromycin 500mg - Prednisone 40mg daily - Duoneb and continue Combivent - Guaifenesin - Incentive spirometry Neck pain - CT: A 1 cm right thyroid nodule. - CT neck/soft tissue ordered - Ordered TSH, Free T3/T4, thyroid antibody panel DM - Hold metformin - ISS with checks ac/hs - Continue gabapentin for neuropathy History of clotting disorder/PE s/p IVC filter placement - CT: Nonocclusive chronic pulmonary emboli seen within a single segmental branch of the right lower lobe. No evidence for acute pulmonary embolus. - INR is subtherapeutic 1.4 - Continue warfarin - Trend INR Chronic pain med use - PDMP for "Soraya Moya" shows chronic use of Tylenol with codeine - One time dose of morphine ordered overnight as patient refused Tylenol/NSAID/ tramadol for "chest pain" and "abdominal pain" Tobacco use - Nicotine patch ordered DVT prophylaxis - SCDs for now - Warfarin as above FULL CODE Attending addendum: I have physically seen this patient, have supervised the medical residents activities, and agree with the H&P unless as otherwise noted. Assessment and Plan: Acute respiratory failure/COPD exacerbation-- Admit to telemetry for close oxygen monitoring Continue azithromycin and prednisone as noted above Duonebs every 4 hours while awake and every 2 hours when necessary. Guaifenesin extended release 600 mg p.o. twice daily Nasal cannula 2 L oxygen titrated to keep pulse ox greater than or equal to 92%. 1 cm thyroid nodule-- Schedule ultrasound And free T4 and free T3 Should be biopsied, can be done as an outpatient. Diabetes mellitus-- Hold metformin Patient Accu-Cheks before meals and at bedtime with NovoLog coverage per scale Level of Care Med/Surg Advanced Directives Existing Advance Directive: Yes Existing Living Will: Yes Existing Power of [employer] Insole Channeler: Yes () Existing Health Care Proxy: Yes Resuscitation Status FULL RESUSCITATION VTE Prophylaxis VTE Risk Assessment Done? Y/N: Yes Risk Level: Moderate Given or contraindicated: Warfarin (Coumadin), SCD's Resident Tracking Resident Involvement: Resident Care Provided Care Provided: Adult Hospital Medicine
[2017-09-29] MEDS ORDERED: POLYETHYLENE (MIRALAX) 17 GM PACK PO PRN (01:30)
[2017-09-29] MEDS ORDERED: MAGNESIUM HYDROXIDE SUSP 30 ML UDC PO PRN (01:30)
[2017-09-29] MEDS ORDERED: ACETAMINOPHEN 325 MG TAB PO PRN (01:30)
[2017-09-29] MEDS ORDERED: ONDANSETRON INJ 2 MG/ML 2 ML VIAL IV PRN (01:30)
[2017-09-29] MEDS ORDERED: ALUMINUM/MAGNESIUM/SIMETH (MAALOX MAX) 30 ML UDC PO PRN (01:30)
[2017-09-29] MEDS ORDERED: NITROGLYCERIN 0.4 MG SL PER TAB CHARGE SL PRN (01:30)
[2017-09-29] MEDS ORDERED: TRAMADOL HCL 50 MG TAB PO STA (01:37)
[2017-09-29] MEDS: SODIUM CHLORIDE 0.9% 1000ML 1,000 ML IV SCH ×2 (02:56→13:03)
[2017-09-29] MEDS ORDERED: IV FLUIDS COMPLETED PRN (03:15)
[2017-09-29] MEDS ORDERED: MoRPHine SULFATE 2 MG/ML CARP IV ONE (04:15)
[2017-09-29 06:27] LABS: BASO % 0.1 %; BASO ABS # 0.01 K/uL (0-0.2); HEMOGLOBIN 12.6 g/dL (12.0-16.0); IG# 0.02 K/uL (0.00-0.02); LYMPH % 5.5 %; LYMPH ABS # 0.56 K/uL (1.2-3.4); MEAN CELL VOLUME 89.6 fL (80-100); MEAN CORPUSCULAR HEMOGLOBIN 29.7 pg (25-34); MEAN CORPUSCULAR HGB CONC 33.2 g/dl (32-36); MEAN PLATELET VOLUME 9.6 fL (7.4-10.4); MONO % 1.3 %; MONO ABS # 0.13 K/uL (0.11-0.59); NEUT % 92.9 %; NEUT ABS # 9.49 K/uL (1.4-6.5); PLATELET COUNT 249 K/uL (130-400); RED CELL DISTRIBUTION WIDTH CV 14.1 % (11.5-14.5); RED CELL DISTRIBUTION WIDTH SD 46.4 fL (36.4-46.3); WHITE BLOOD COUNT 10.21 K/uL (4.8-10.8)
[2017-09-29 06:37] LABS: INR 1.3 (0.9-1.1)
--- NOTE | 2017-09-29 06:42 | DIAGNOSTIC IMAGING REPORT ---
SOFT TISSUE NECK TECHNIQUE: AP and lateral soft tissue neck FINDINGS: Normal prevertebral soft tissues. No distention of the hypopharynx. The epiglottis is normal. Moderate degenerative change cervical spine. No evidence for distention of the hypopharynx. IMPRESSION: No acute process. The above report was generated using voice recognition software. It may contain grammatical, syntax or spelling errors. Electronically signed by: Scout Lopez M.D. 09/29/2017 6:41 AM Dictated Date/Time: 09/29/2017 6:39 AM
[2017-09-29] MEDS: GUAIFENESIN 200 MG TAB PO SCH ×5 (06:44→21:53)
[2017-09-29 07:11] LABS: CALCIUM 8.4 mg/dl (8.5-10.1); CREATININE 0.63 mg/dl (0.60-1.20); POTASSIUM 4.2 mmol/L (3.5-5.1)
[2017-09-29] MEDS: ALBUT/IPRATROP 3MG/0.5MG NEB 3 ML VIAL INH SCH ×4 (07:15→19:48)
[2017-09-29] MEDS ORDERED: METFORMIN HCL 500 MG TAB PO SCH (08:00)
[2017-09-29] MEDS: NICOTINE 14 MG/24 HR TDSY TD SCH (08:35)
[2017-09-29] MEDS: GABAPENTIN 300 MG CAP PO SCH ×3 (08:36→20:27)
[2017-09-29] MEDS: INSULIN ASPART 100 UNITS/ML 3 ML PEN SC SCH ×4 (08:48→20:30)
[2017-09-29] MEDS ORDERED: AZITHROMYCIN 250 MG TAB PO SCH (09:00)
[2017-09-29] MEDS ORDERED: ONDANSETRON INJ 2 MG/ML 2 ML VIAL IV STA (10:44)
[2017-09-29] MEDS ORDERED: RANITIDINE HCL 150 MG TAB PO ONE (10:45)
--- NOTE | 2017-09-29 10:48 | Family Medicine Progress Note ---
Progress Note Date of Service Sep 29, 2017. Subjective Pt evaluation today including: conversation w/ patient, physical exam, conversation w/ showroom consultant, review of inpatient medication list Pain: moderate PO Intake: good Voiding: no voiding problems Patients shortness of breath has improved, she still has a cough She says her only current symptoms include nausea and lower back pain. She says her abdominal pain has moved to her back Constitutional: No fever, No chills Eyes: No worsening of vision, No diplopia Respiratory: + cough, + sputum, No shortness of breath, No dyspnea on exertion, No hemoptysis Cardiovascular: No chest pain, No edema, No palpitations Abdomen: + nausea, No pain, No vomiting, No diarrhea, No constipation Musculoskeletal: + joint pain, + muscle pain, No calf pain Female : No dysuria, No urinary frequency, No hematuria Skin: No rash, No itch, No new/changing skin lesions Medications Current Inpatient Medications Medications (Trade) Dose Ordered Sig/Sarina Route Start Time Stop Time Status Last Admin Dose Admin Ioversol (Optiray 320) 100 ml UD PRN IV 09/28/17 21:30 10/02/17 21:29 Sodium Chloride 1,000 ml @ 100 mls/hr Q10H IV 09/29/17 03:00 10/29/17 02:59 09/29/17 02:56 100 MLS/HR Acetaminophen (Tylenol Tab) 650 mg Q4H PRN PO 09/29/17 01:30 10/29/17 01:29 Al Hydrox/Mg Hydrox/Simethicone (Maalox Max Susp) 15 ml Q4H PRN PO 09/29/17 01:30 10/29/17 01:29 Magnesium Hydroxide (Milk Of Magnesia Susp) 30 ml Q12H PRN PO 09/29/17 01:30 10/29/17 01:29 Ondansetron HCl (Zofran Inj) 4 mg Q6H PRN IV 09/29/17 01:30 10/29/17 01:29 Nitroglycerin (Nitrostat Tab) 0.4 mg UD PRN SL 09/29/17 01:30 10/29/17 01:29 Polyethylene (Miralax Powder Packet) 17 gm DAILY PRN PO 09/29/17 01:30 10/29/17 01:29 Gabapentin (Neurontin Cap) 300 mg TID PO 09/29/17 09:00 10/29/17 08:59 09/29/17 08:36 300 MG Warfarin Sodium (Coumadin Tab) 6 mg DAILY@1600 PO 09/29/17 16:00 10/29/17 15:59 Albuterol/ Ipratropium (Duoneb) 3 ml QIDR INH 09/29/17 08:00 10/29/17 07:59 Prednisone (PredniSONE TAB) 40 mg DAILY PO 09/29/17 09:00 10/29/17 08:59 09/29/17 08:36 40 MG Guaifenesin (Organidin Nr Tab) 200 mg Q4H PO 09/29/17 06:00 10/29/17 05:59 09/29/17 06:44 200 MG Miscellaneous (Iv Fluids Completed) 1 ea PRN PRN N/A 09/29/17 03:15 09/29/18 03:14 Nicotine (Nicoderm Cq 14MG Patch) 1 patch QAM TD 09/29/17 09:00 10/29/17 08:59 09/29/17 08:35 1 PATCH Miscellaneous (Remove Nicoderm Patch) 1 ea HS N/A 09/29/17 21:00 10/29/17 20:59 Azithromycin (Zithromax Tab) 500 mg QAM PO 09/29/17 09:00 10/06/17 08:59 09/29/17 08:35 500 MG Glucagon (Glucagon Inj) 1 mg UD PRN SQ 09/29/17 19:15 10/29/17 19:14 Glucose (Glucose 40% Gel) 15-30 GRAMS 15 GRAMS... UD PRN PO 09/29/17 19:15 10/29/17 19:14 Glucose (Glucose Chew Tab) 4-8 Tablets 4 Tabl... UD PRN PO 09/29/17 19:15 10/29/17 19:14 Insulin Aspart (novoLOG ASPART) SLIDING SCALE If C... ACHS SC 09/29/17 06:30 10/29/17 06:29 09/29/17 08:48 8 UNITS Objective Vital Signs Date Time Temp Pulse Resp B/P (MAP) Pulse Ox O2 Delivery O2 Flow Rate FiO2 09/29/17 08:00 Nasal Cannula 2.0 09/29/17 07:12 36.5 87 18 161/73 (102) 94 Room Air 09/29/17 04:05 Nasal Cannula 2.0 09/29/17 03:49 36.5 103 18 160/70 94 Nasal Cannula 2.0 09/29/17 02:07 101 16 133/69 95 09/29/17 00:47 101 16 133/69 95 Nasal Cannula 2.0 09/28/17 23:05 101 22 150/79 98 Nasal Cannula 2.0 09/28/17 21:54 103 09/28/17 21:51 98 Nasal Cannula 2.0 09/28/17 21:33 98 Nasal Cannula 2.0 09/28/17 21:33 98 Nasal Cannula 2.0 09/28/17 21:11 36.8 130 26 167/82 95 Room Air Physical Exam General Appearance: WD/WN, no apparent distress Eyes: normal inspection, EOMI ENT: hearing grossly normal, pharynx normal Neck: supple, + adenopathy present (tender left submandibular lymphadenopathy) Respiratory/Chest: lungs clear, no respiratory distress, no accessory muscle use Cardiovascular: regular rate, rhythm, no murmur Abdomen: normal bowel sounds, non tender, soft Extremities: non-tender, no pedal edema, no calf tenderness, normal capillary refill Neurologic/Psychiatric: alert, oriented x 3 Skin: normal color, warm/dry, no rash Laboratory Results Results Past 24 Hours Test 09/28/17 21:46 09/28/17 21:47 09/28/17 23:20 09/29/17 05:48 Range/Units Influenza Type A (RT-PCR) Neg for Influ A NEG Influenza Type B (RT-PCR) Neg for Influ B NEG White Blood Count 11.43 10.21 4.8-10.8 K/uL Red Blood Count 4.57 4.24 4.2-5.4 M/uL Hemoglobin 13.3 12.6 12.0-16.0 g/dL Hematocrit 41.1 38.0 37-47 % Mean Corpuscular Volume 89.9 89.6 80-100 fL Mean Corpuscular Hemoglobin 29.1 29.7 25-34 pg Mean Corpuscular Hemoglobin Concent 32.4 33.2 32-36 g/dl Platelet Count 280 249 130-400 K/uL Mean Platelet Volume 9.9 9.6 7.4-10.4 fL Neutrophils (%) (Auto) 67.7 92.9 % Lymphocytes (%) (Auto) 23.3 5.5 % Monocytes (%) (Auto) 7.3 1.3 % Eosinophils (%) (Auto) 1.1 0.0 % Basophils (%) (Auto) 0.3 0.1 % Neutrophils # (Auto) 7.72 9.49 1.4-6.5 K/uL Lymphocytes # (Auto) 2.66 0.56 1.2-3.4 K/uL Monocytes # (Auto) 0.84 0.13 0.11-0.59 K/uL Eosinophils # (Auto) 0.13 0.00 0-0.5 K/uL Basophils # (Auto) 0.04 0.01 0-0.2 K/uL RDW Standard Deviation 46.1 46.4 36.4-46.3 fL RDW Coefficient of Variation 14.2 14.1 11.5-14.5 % Immature Granulocyte % (Auto) 0.3 0.2 % Immature Granulocyte # (Auto) 0.04 0.02 0.00-0.02 K/uL Prothrombin Time 14.5 13.4 9.0-12.0 SECONDS Prothromb Time International Ratio 1.4 1.3 0.9-1.1 Activated Partial Thromboplast Time 29.9 21.0-31.0 SECONDS Partial Thromboplastin Ratio 1.2 Sodium Level 140 137 136-145 mmol/L Potassium Level 3.5 4.2 3.5-5.1 mmol/L Chloride Level 107 106 98-107 mmol/L Carbon Dioxide Level 28 28 21-32 mmol/L Anion Gap 5.0 3.0 3-11 mmol/L Blood Urea Nitrogen 6 7 7-18 mg/dl Creatinine 0.70 0.63 0.60-1.20 mg/dl Est Creatinine Clear Calc Drug Dose 72.4 78.8 ml/min Estimated GFR () 102.5 106.1 Estimated GFR (Non- 88.4 91.5 BUN/Creatinine Ratio 8.5 11.5 10-20 Random Glucose 94 218 70-99 mg/dl Calcium Level 8.7 8.4 8.5-10.1 mg/dl Total Bilirubin 0.4 0.2-1 mg/dl Aspartate Amino Transf (AST/SGOT) 10 15-37 U/L Alanine Aminotransferase (ALT/SGPT) 13 12-78 U/L Alkaline Phosphatase 101 45-117 U/L Troponin I < 0.015 0-0.045 ng/ml Total Protein 7.2 6.4-8.2 gm/dl Albumin 3.4 3.4-5.0 gm/dl Globulin 3.8 2.5-4.0 gm/dl Albumin/Globulin Ratio 0.9 0.9-2 Urine Color YELLOW Urine Appearance CLEAR CLEAR Urine pH 6.5 4.5-7.5 Urine Specific [place] 1.039 1.000-1.030 Urine Protein NEG NEG Urine Glucose (UA) NEG NEG Urine Ketones NEG NEG Urine Occult Blood NEG NEG Urine Nitrite NEG NEG Urine Bilirubin NEG NEG Urine Urobilinogen NEG NEG Urine Leukocyte Esterase MODERATE NEG Urine WBC (Auto) 5-10 0-5 /hpf Urine RBC (Auto) 0-4 0-4 /hpf Urine Hyaline Casts (Auto) 1-5 0-5 /lpf Urine Epithelial Cells (Auto) >30 0-5 /lpf Urine Bacteria (Auto) NEG NEG Thyroid Stimulating Hormone (TSH) 0.547 0.300-4.500 uIu/ml Free Thyroxine 1.21 0.80-1.60 ng/dl Free Triiodothyronine 2.51 2.30-4.20 pg/ml Test 09/29/17 08:41 Range/Units Bedside Glucose 258 70-90 mg/dl Microbiology Results 09/28/17 Blood Culture, Received Pending 09/28/17 Blood Culture, Received Pending Assessment and Plan 67-year-old female with a PMH of COPD, DM, PE and chronic pain med use presented to the emergency department with shortness of breath, pleuritis chest pain, nausea and abdominal pain COPD exacerbation - CT chest: Single partially opacified right lower lobe distal bronchus. No new focal lung consolidations to suggest pneumonia. A 1 cm right thyroid nodule. - O2 via NC, wean as tolerated - PO Azithromycin 500mg ---> switched to IV levaquin 750mg - Prednisone 40mg daily - Duoneb and continue Combivent - Guaifenesin - Incentive spirometry Neck pain - CT: A 1 cm right thyroid nodule. - Soft tissue neck Xray was unremarkable - TSH, Free t4/t3 unremarkable, thyroid antibodies pending Nausea of unknown cause - without any vomiting, abdominal pain or diarrhea - will given IV zofran q4prn and zantac 150mg one time dose - continue to monitor T2 DM - Hold metformin - ISS with checks ac/hs - Order HbA1c - Add lantus 10 units qhs Peripheral Neuropathy secondary to DM - continue gabapentin History of clotting disorder/PE s/p IVC filter placement - CT: Nonocclusive chronic pulmonary emboli seen within a single segmental branch of the right lower lobe. No evidence for acute pulmonary embolus. - INR is subtherapeutic 1.3 - Takes 6mg of warfarin daily, increased to 8mg today - Trend INR Chronic pain med use secondary to lower back pain - PDMP for "Soraya Moya" shows chronic use of Tylenol with codeine - One time dose of morphine ordered overnight as patient refused Tylenol/NSAID/ tramadol for "chest pain" and "abdominal pain" - Will continue home dose of tylenol codeine. Tobacco use - Nicotine patch ordered DVT prophylaxis - SCDs for now - Warfarin as above FULL CODE Continued [facility] stay due to: multiple IV medications needed Discharge planning: uncertain Reviewed: Pt Seen/Exam by Me History breathing better since admission pain in right flank - chronic. Constitutional: denies: fever Respiratory: positive: cough Cardiovascular: denies chest pain General Appearance: no apparent distress Respiratory: no respiratory distress, decreased breath sounds, rhonchi Cardiovascular: regular rate, rhythm Neurologic/Psychiatric: alert, oriented x 3 Skin Characteristics: warm/dry Comments ? right flank tenderness Assessment/Plan Resident Physician Supervision Note: I independently interviewed and examined the patient and verified the simons history and physical, reviewed labs and image studies, discussed the case with the resident Dr. Woodard and agree with the findings and care plan.
[2017-09-29] MEDS ORDERED: LEVOFLOXACIN 750 MG TAB PO SCH (11:00)
[2017-09-29] MEDS ORDERED: ACETAMINOPHEN/CODEINE 300/30MG TAB PO ONE (13:10)
[2017-09-29] MEDS ORDERED: LEVOFLOXACIN / D5W 750 MG in PREMIXED IN D5W 150 ML IV SCH (16:00)
[2017-09-29] MEDS ORDERED: WARFARIN SOD 6 MG TAB PO SCH (16:00)
[2017-09-29] MEDS ORDERED: WARFARIN SOD 4 MG TAB PO SCH (16:00)
[2017-09-29] MEDS ORDERED: INSULIN GLARGINE SOLOSTAR 100 UNITS/ML 3 ML PEN SC SCH (19:00)
[2017-09-29] MEDS ORDERED: GLUCAGON FOR INJ 1 MG VIAL SQ PRN (19:15)
[2017-09-29] MEDS ORDERED: GLUCOSE 40% GEL 15 GM TUBE PO PRN (19:15)
[2017-09-29] MEDS ORDERED: GLUCOSE 10 TABS/TUBE PO PRN (19:15)
[2017-09-30] VITALS (7 sets, daily range): BP systolic 123–188; BP diastolic 66–104; PULSE 73–92; TEMP 36.5–36.8; O2SAT 93–100
[2017-09-30] MEDS: SODIUM CHLORIDE 0.9% 1000ML 1,000 ML IV SCH ×2 (00:42→09:00)
[2017-09-30] MEDS: GUAIFENESIN 200 MG TAB PO SCH ×3 (02:02→10:54)
[2017-09-30] MEDS ORDERED: MoRPHine SULFATE 2 MG/ML CARP IV STA (02:34)
[2017-09-30] MEDS ORDERED: hydrOXYzine HCL 25 MG TAB PO STA (02:34)
[2017-09-30 06:10] LABS: BASO % 0.1 %; BASO ABS # 0.01 K/uL (0-0.2); EOS % 0.1 %; EOS ABS # 0.01 K/uL (0-0.5); HEMOGLOBIN 11.1 g/dL (12.0-16.0); IG# 0.03 K/uL (0.00-0.02); LYMPH % 22.4 %; LYMPH ABS # 2.42 K/uL (1.2-3.4); MEAN CELL VOLUME 88.5 fL (80-100); MEAN CORPUSCULAR HEMOGLOBIN 28.9 pg (25-34); MEAN CORPUSCULAR HGB CONC 32.6 g/dl (32-36); MEAN PLATELET VOLUME 9.8 fL (7.4-10.4); MONO % 7.5 %; MONO ABS # 0.81 K/uL (0.11-0.59); NEUT % 69.6 %; NEUT ABS # 7.53 K/uL (1.4-6.5); PLATELET COUNT 227 K/uL (130-400); RED CELL DISTRIBUTION WIDTH CV 14.2 % (11.5-14.5); RED CELL DISTRIBUTION WIDTH SD 45.8 fL (36.4-46.3); WHITE BLOOD COUNT 10.81 K/uL (4.8-10.8)
[2017-09-30 06:20] LABS: INR 1.5 (0.9-1.1)
[2017-09-30 06:27] LABS: CALCIUM 8.1 mg/dl (8.5-10.1); CREATININE 0.63 mg/dl (0.60-1.20); POTASSIUM 3.6 mmol/L (3.5-5.1)
[2017-09-30] MEDS: ALBUT/IPRATROP 3MG/0.5MG NEB 3 ML VIAL INH SCH ×2 (06:57→11:17)
[2017-09-30] MEDS: GABAPENTIN 300 MG CAP PO SCH (08:16)
[2017-09-30] MEDS: NICOTINE 14 MG/24 HR TDSY TD SCH (08:17)
[2017-09-30] MEDS: INSULIN ASPART 100 UNITS/ML 3 ML PEN SC SCH ×2 (08:23→12:07)
[2017-09-30] MEDS ORDERED: ACETAMINOPHEN/CODEINE 300/30MG TAB PO SCH (09:00)
[2017-09-30] MEDS ORDERED: CMD4 PO (11:43)
[2017-09-30] MEDS ORDERED: AZIT250T PO (11:43)
[2017-09-30] MEDS ORDERED: PRD20 PO (11:43)
[2017-09-30] MEDS ORDERED: WARFARIN SOD 10 MG TAB PO ONE (11:45)
--- NOTE | 2017-09-30 11:55 | Discharge Instructions ---
Discharge Instructions Date of Service Sep 30, 2017. Admission Reason for Admission: Copd With Exacerbation Discharge Discharge Diagnosis / Problem: COPD exacerbation Discharge Goals Goal(s): Decrease discomfort, Improve function, Improve disease control Activity Recommendations Activity Limitations: resume your previous activity . Instructions / Follow-Up Instructions / Follow-Up You were admitted to the hospital for the evaluation of your shortness of breath. You were found to be suffering from a COPD exacerbation. You were treated in the hospital with antibiotics and prednisone and we will plan to continue these medications for a few more days. A script for both the prednisone and the antibiotic azithromycin has been sent to your pharmacy As you have a history of clots in the past which has led you to be on chronic anticoagulation therapy with coumadin there was some concern that you had developed a new PE and a CT of the chest to evaluate this was completed. On the CT there was NO indication of a new PE however there was findings of your previous clot in the lung. You were also found to be what we call "sub therapeutic" for your INR meaning you were not at the goal range of 2-3. We have increased your Coumadin dose to load you to help increase your INR as well as increased the outpatient prescription for the coumadin. We recommend a recheck of you INR on TUESDAY. Finally, A thyroid nodule was noted on the CT scan incidentally as well. We have arranged for a follow up ultrasound to better visualize the nodule and be able to assess the need for a biopsy or further investigations. We did check your thyroid function which was normal. In summary, 1. Azithromycin 250 mg daily x 4 days 2. Continue Prednisone 40 g x 4 days 3. Warfarin has been increased to 8 mg daily, INR recheck on Tuesday to see if changes need to be made 4. Ultrasound of thyroid to better visualize the nodule recommended and will be arranged If you develop worsening symptoms, worsening shortness of breath, chest pain, fever > 102F please contact your PCP or return to the ED. We wish you jessy Falk Current Hospital Diet Patient's current hospital diet: AHA Diet (Heart Healthy), Diabetes Type 2 Diet Discharge Diet Recommended Diet: Diabetes Type 2 Diet Pending Studies Studies pending at discharge: yes List of pending studies: Thyroid antibodies Laboratory Results Hemoglobin A1c Test 09/30/17 05:39 Range/Units Estimated Average Glucose 154 mg/dl Hemoglobin A1c 7.0 H 4.5-5.6 % Medical Emergencies . Who to Call and When: Medical Emergencies: If at any time you feel your situation is an emergency, please call 911 immediately. . Non-Emergent Contact Non-Emergency issues call your: Primary Care Provider Call Non-Emergent contact if: you have a fever, you have any medication questions . . "Provider Documentation" section prepared by Veda Falk. . VTE Core Measure Inpt VTE Proph given/why not?: Warfarin (Coumadin), SCD's [place] Drug Monitoring Program Search Results: patient reviewed within database Drug Monitoring Findings: Chronic Narcotic dose reviewed in PDMP and continued per the medication rx noted on the site
--- NOTE | 2017-09-30 11:56 | Discharge Summary ---
Discharge Summary Date of Service Sep 30, 2017. Discharge Summary Admission Date: Sep 29, 2017 at 01:21 Discharge Date: Sep 30, 2017 Discharge Disposition: Home Principal Diagnosis: COPD exacerbation Problems/Secondary Diagnoses: Chronic pulmonary embolus, subtherapeutic Thyroid nodule Chronic back pain DMII Immunizations: Have You Had Influenza Vaccine: No Influenza Vaccine Date: Aug 07, 2010 History of Tetanus Vaccine?: Unknown History of Pneumococcal: No Pneumococcal Date: May 04, 2006 History of Hepatitis B Vaccine: Unknown Medication Reconciliation New Medications: Azithromycin (Zithromax) 250 Mg Tab 250 MG PO DAILY for 4 Days, #4 TAB Prednisone (Prednisone) 20 Mg Tab 40 MG PO DAILY for 4 Days, #8 TAB Warfarin Sod (Coumadin) 4 Mg Tab 8 MG PO DAILY@16 for 30 Days, #60 TAB Continued Medications: Gabapentin (Neurontin) 300 Mg Cap 300 MG PO TID, CAP Ipratropium-Albuterol (Combivent Respimat) 1 Aer Aer 1 PUFF PO Q4 Metformin Hcl (Glucophage) 1,000 Mg Tab 1000 MG PO BID, TAB Discontinued Medications: Warfarin Sod (Coumadin) 6 Mg Tab 6 MG PO DAILY Discharge Exam Patient was feeling very well this am and states she had no SOB Patient states she was feeling ready for d/c, discussed the plan on d/c and new medications and patient was agreeable Patient felt comfortable with plan and d/c home Review of Systems: Constitutional: No fever Eyes: No worsening of vision ENT: No hearing loss Respiratory: No cough, No sputum, No wheezing, No shortness of breath, No dyspnea on exertion, No dyspnea at rest Cardiovascular: No chest pain Abdomen: No pain, No nausea, No vomiting, No diarrhea, No constipation Musculoskeletal: + muscle pain (back pain chronic), No joint pain Genitourinary - Female: No dysuria, No hematuria Neurologic: No weakness, No numbness/tingling, No balance problems Psychiatric: No depression symptoms Endocrine: No fatigue Hematologic / Lymphatic: No abnormal bleeding/bruising Integumentary: No rash Physical Exam: General Appearance: no apparent distress Eyes: normal inspection ENT: normal ENT inspection Neck: supple Respiratory/Chest: no respiratory distress, no accessory muscle use, + decreased breath sounds (bilat bases ), + crackles (occasional crackels to bases ) Cardiovascular: regular rate, rhythm, no murmur, normal peripheral pulses Abdomen / GI: normal bowel sounds, non tender, soft Neurologic/Psychiatric: alert, normal mood/affect, oriented x 3 Skin: normal color, warm/dry, no rash Lymphatic: no adenopathy Hospital Course 67-year-old female with a PMH of COPD, DM, PE and chronic narcotic use for back pain presented to the emergency department with shortness of breath, pleuritis chest pain, nausea and abdominal pain. There was concern that the patient may be suffering from a recurrent PE as she was subtherapeutic however CTA did not reveal an acute PE but a chronic non occluding PE and no acute infection. It also did not a thyroid nodule. Patient was admitted for SOB and treated for COPD exacerbation. She was d/c home on prednisone course and abx as well as a new medication regimen for her coumadin. Outpatient [facility] for thyroid nodule in 2 weeks with a follow up with PCP prior to. COPD exacerbation without hypoxia - CT chest: Single partially opacified right lower lobe distal bronchus. No new focal lung consolidations to suggest pneumonia. - on 4 days of azithro 250 mg daily - on 40 mg prednisone x 4 days for a total of 5 days Thyroid nodule - [facility] with FNA if necessary ordered for 10/11 - TSH, Free t4/t3 unremarkable, thyroid antibodies pending - to see PCP 1 week prior to discuss need to augment her medications for this test T2 DM - HBA1C 7.0 in house Chronic PE noted without occlusion/Subtherapeutic INR - Warfarin increased to 8 mg daily - Plan for INR check on Tuesday10/03/17 - on d/c INR was 1.5 and received 10 mg coumadin prior to d/c - CT negative for PE this admission Chronic narcotic use secondary to lower back pain - PDMP reviewed and chronic use of Tylenol with codeine noted, continued in house DVT prophylaxis - SCDs as warfarin was subtherapeutic FULL CODE Total Time Spent: Greater than 30 minutes This includes examination of the patient, discharge planning, medication reconciliation, and communication with other providers. Discharge Instructions Please refer to the electronic Patient Visit Report (Discharge Instructions) for additional information. Additional Copies To Denis Samuel DO Reviewed: Pt Seen/Exam by Me History breathing much improved. cough mild flank pain controlled. Constitutional: denies: fever Respiratory: negative: short of breath Cardiovascular: denies chest pain General Appearance: no apparent distress Respiratory: no respiratory distress, decreased breath sounds, rhonchi ( occasional) Cardiovascular: regular rate, rhythm Neurologic/Psychiatric: alert, oriented x 3 Skin Characteristics: warm/dry Assessment/Plan Resident Physician Supervision Note: I independently interviewed and examined the patient and verified the simons history and physical, reviewed labs and image studies, discussed the case with the resident Dr. Falk and agree with the findings and care plan. Time spent in discharge 35 min
[2017-09-30 13:23] LABS: MICROSOMAL AB <1 IU/ML (<9)
== END 2017-09-30 13:15 | disposition home or self-care (01) ==
LOC: C.EDB 21:10 → C.MED 09-29 01:21 → ENRESERV 09-29 01:53
PROVIDERS: ADMIT Hospitalist; ATTEND Family Medicine
DX: J44.1 Chronic obstructive pulmonary disease with (acute) exacerbation (principal); I27.82 Chronic pulmonary embolism; E04.1 Nontoxic single thyroid nodule; M54.9 Dorsalgia, unspecified; G89.29 Other chronic pain; J45.909 Unspecified asthma, uncomplicated; E11.40 Type 2 diabetes mellitus with diabetic neuropathy, unspecified; F17.200 Nicotine dependence, unspecified, uncomplicated; Z79.01 Long term (current) use of anticoagulants; Z79.899 Other long term (current) drug therapy; Z87.01 Personal history of pneumonia (recurrent); Z86.73 Personal history of transient ischemic attack (TIA), and cerebral infarction without residual deficits; Z88.2 Allergy status to sulfonamides; Z88.1 Allergy status to other antibiotic agents; Z80.9 Family history of malignant neoplasm, unspecified; Z83.3 Family history of diabetes mellitus; Z82.49 Family history of ischemic heart disease and other diseases of the circulatory system

== ENCOUNTER → 2017-11-25 | Outpatient (CLI) | payer OTHER ==
[~2017-11-25] MED LIST changes: -ACET-1175 PO; +CMD4 PO; -CMD6 PO; -LVNIS100; -MCRK/10 PO; +PRD20 PO
[2017-11-25 13:35] LABS: INR 1.9 (0.9-1.1)
== END | disposition home or self-care (01) ==
LOC: C.LAB 11:36
PROVIDERS: ATTEND Family Medicine
DX: D68.4 Acquired coagulation factor deficiency (principal)

== ENCOUNTER 2021-07-15 23:50 | Inpatient (IN) ==
--- NOTE | 2021-07-16 00:17 | Emergency Department Note ---
History of Present Illness General Chief complaint: Stroke/CVA Symptoms Stated complaint: STROKE SX Time Seen by Provider: 07/15/21 23:56 Source: patient Mode of arrival: EMS Limitations: no limitations History of Present Illness Provider complaint: stroke like symptoms Onset (ago): hour(s) This is a 71-year-old female brought in by EMS due to falls and concern for possible stroke. Patient states she fell twice tonight, and left-sided weakness, slurred speech, and facial droop began after the first fall. Patient states she has COPD but does not wear oxygen. She does use an inhaler. Patient denies any concern for injury following the fall. Patient states she rolled off the bed. Patient denies any prior strokes, denies any history of weakness. Pt seen during a time of high acuity and national emergency pandemic while wearing PPE. Home Medications Medication Instructions Recorded Confirmed Type ibuprofen 200 mg tablet (Advil) 200 mg PO Q6H PRN 07/16/21 07/16/21 History ipratropium 20 mcg-albuterol 100 1 puff INHALATION QID 07/16/21 07/16/21 History mcg/actuation mist for inhalation (Combivent Respimat) metformin 1,000 mg tablet 1,000 mg PO DAILY 07/16/21 07/16/21 History warfarin 1 mg tablet 1 mg PO DAILY 07/16/21 07/16/21 History warfarin 5 mg tablet 5 mg PO DAILY 07/16/21 07/16/21 History Allergies Allergy/AdvReac Type Severity Reaction Status Date / Time Sulfa (Sulfonamide Allergy Severe RASH, Verified 07/16/21 00:28 Antibiotics) SHORTNESS OF BREATH bacitracin Allergy Intermediate facial Verified 07/16/21 00:28 swelling and erythema Past Med/Surg History Medical History COPD (chronic obstructive pulmonary disease) Diabetes Diabetic neuropathy Heart disease PE (pulmonary embolism) Surgical History S/P IVC filter Family History Mother , early 90s of leukemia Rheumatoid arthritis Leukemia Father , age 60 of a stroke Stroke Daughter Lupus Social History (Updated 07/16/21 @ 08:07 by Nolberto Stokes MD) Smoking Status: Current every day smoker Tobacco Type: Cigarettes Age Started Using Tobacco: 12; Cigarettes Per Day: 15; Do You Dip or Chew Tobacco: No; Tobacco Cessation Education Requested by Patient: Yes Hx Alcohol Use: No Hx Substance Use: No Preferred Language: American Communication Ability: Effective Instructor Nurse Required: No Beliefs That Will Affect Care: None Current Living Situation: Spouse current occupational status: retired 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[place] ) Other Information That Helps Us Care for You: No Feels Safe at Home: Yes Safety Concerns: Feels Safe At This Time Assistive Devices: Glasses Review of Systems A total of 10 systems reviewed and were otherwise negative All systems reviewed & are unremarkable except as noted in HPI & below Physical Exam Vital Signs Vital Signs - 24 hr 07/16/21 00:09 07/16/21 00:38 07/16/21 01:51 Temperature 36.6 C Temperature Source Oral Pulse Rate 92 H Pulse Rate [Apical] 88 85 Respiratory Rate 18 18 16 Respiratory Effort / Characteristics Non-Labored Spontaneous Respiratory Depth Normal Respiratory Pattern Regular Blood Pressure 172/135 H Blood Pressure [Left Arm] 150/68 H 147/67 H Blood Pressure Mean 147 Blood Pressure Mean [Left Arm] 95 93 Blood Pressure Position Semi-fowlers Blood Pressure Position [Left Arm] Lying Semi-fowlers Pulse Oximetry 99 94 95 Oxygen Delivery Method Room Air Room Air Room Air Sepsis Recent Fever Within 48 Hours No Sepsis New/Unexplained Change in Mental Status N/A Sepsis Action Taken by Nursing No Action Required 07/16/21 02:06 07/16/21 02:21 07/16/21 02:36 Temperature Temperature Source Pulse Rate Pulse Rate [Apical] 89 90 89 Respiratory Rate 20 16 20 Respiratory Effort / Characteristics Non-Labored Spontaneous Respiratory Depth Normal Respiratory Pattern Regular Blood Pressure Blood Pressure [Left Arm] 164/98 H 111/91 173/99 H Blood Pressure Mean Blood Pressure Mean [Left Arm] 120 97 123 Blood Pressure Position Blood Pressure Position [Left Arm] Semi-fowlers Right Lateral Semi-fowlers Pulse Oximetry 95 99 96 Oxygen Delivery Method Room Air Room Air Sepsis Recent Fever Within 48 Hours Sepsis New/Unexplained Change in Mental Status Sepsis Action Taken by Nursing GENERAL: alert, well appearing, well nourished, no distress, non-toxic EYE EXAM: normal conjunctiva, PERRL and EOM's grossly intact, no gaze deviation OROPHARYNX: no exudate, no erythema, lips, buccal mucosa, and tongue normal and mucous membranes are moist NECK: supple, no nuchal rigidity, no adenopathy, non-tender LUNGS: Clear to auscultation. Normal chest wall mechanics, no w/r/r HEART: no murmurs, S1 normal and S2 normal ABDOMEN: abdomen soft, non-tender, normo-active bowel sounds, no masses, no rebound or guarding. BACK: Back is symmetrical on inspection and there is no deformity, no midline tenderness, no CVA tenderness. SKIN: no rashes and no bruising UPPER EXTREMITIES: upper extremities are grossly normal. FROM, nml pulses b/l. Yellowed fingernails consistent with ongoing smoking LOWER EXTREMITIES: No pitting edema. FROM, nml pulses b/l. NEURO EXAM: Normal sensorium, cranial nerves II-XII grossly intact, slightly slurred speech, mild left facial droop, left-sided hemiparesis. Gross sensation intact. Course Course 0012: Son not bedside. Discussion with him revealed he first heard the patient fall at 11 PM and noticed the left-sided facial droop and slurred speech at that time. He states she seemed well earlier in the day. No recent change in medications. He states she does take warfarin due to history of recurrent PEs. He states she does still smoke and confirm she has COPD. He states she does not typically wear oxygen at home. 0033: Discussed with Dr. Menchaca. 0038: VS stable. Patient and family updated. 0100: Contacted by STAT rad. 0135: Recheck patient at bedside. Dr. Menchaca still present through the stroke cart and had a lengthy discussion with patient and family regarding risks versus benefits of TNKase. They would like to proceed. 0235: VS stable. Pt with mild improvement in left sided weakness. Administered Medications Insulin Aspart (Insulin Aspart 100 Units/Ml 3 Ml Pen) 0 units SC Q6 МАРИНА Stop: 08/15/21 06:59 Last Admin: 07/16/21 07:46 Dose: Not Given Documented by: [id number] Cosigned by: [id number] Discontinued Medications Gadobutrol (Gadobutrol 30ml Vial) 5.5 ml IV ONCE ONE Stop: 07/16/21 06:20 Last Admin: 07/16/21 06:19 Dose: 5.5 ml Documented by: [id number] Tenecteplase 15 mg/ Syringe 3 mls @ 36 mls/min IV NOW ONE; Protocol Stop: 07/16/21 01:21 Last Admin: 07/16/21 01:51 Dose: 36 mls/min Documented by: [id number] Cosigned by: [id number] Ioversol (Optiray 320 125ml) 116 ml IV ONCE ONE Stop: 07/16/21 00:25 Last Admin: 07/16/21 00:24 Dose: 1 ml Documented by: [id number] Lidocaine (Lidocaine 5% 1 Patch) 1 patch TD NOW STA Stop: 07/16/21 02:06 Last Admin: 07/16/21 02:17 Dose: 1 patch Documented by: [id number] Miscellaneous (Stat Iv) 1 ea N/A NOW STA Stop: 07/16/21 01:11 Last Admin: 07/16/21 01:10 Dose: 1 ea Documented by: [id number] Sodium Chloride (Sodium Chloride 0.9% 10ml Flush) 20 ml IV NOW STA Stop: 07/16/21 01:11 Last Admin: 07/16/21 01:50 Dose: 20 ml Documented by: [id number] Critical Care Time Critical Care Time: Yes Total Critical Care Time: 48 Critical care of 48 min performed to assess and manage high likelihood of life- threatening CVA, involving labs and imaging performed with assessment to evaluate CVA diagnosis with frequent reassessment. This time includes bedside time, treatment discussions with patient/family/consultants, documentation time and excludes procedure time. Medical Decision Making Differential Diagnosis Differential Diagnosis includes but is not limited to ischemic Stroke, hemorrhagic stroke, bells palsy, mass, neoplasm, migraine headache, seizure, subarachnoid hemorrhage, TIA, and transient global amnesia. Medical Records Attestation: I reviewed the patient's medical records. Home Medications Current Medication List: was personally reviewed by me Laboratory Data Attestation: I reviewed the patient's lab results. Result diagrams: 07/16/21 00:25 07/16/21 00:25 Lab Results 07/16/21 07/16/21 07/16/21 Range/Units 00:25 00:25 00:25 WBC 7.75 (4.8-10.8) K/uL RBC 4.34 (4.2-5.4) M/uL Hgb 13.8 (12.0-16.0) g/dL Hct 41.5 (37-47) % MCV 95.6 (80-100) fL MCH 31.8 (25-34) pg MCHC 33.3 (32-36) g/dL RDW Std Deviation 45.8 (36.4-46.3) fL RDW Coeff of Carole 13.3 (11.5-14.5) % Plt Count 223 (130-400) K/uL MPV 10.2 (7.4-10.4) fL Immature Gran % (Auto) 0.3 % Neut % (Auto) 74.9 % Lymph % (Auto) 16.8 % Wallace % (Auto) 6.5 % Eos % (Auto) 1.2 % Baso % (Auto) 0.3 % Neut # (Auto) 5.82 (1.4-6.5) K/uL Lymph # (Auto) 1.30 (1.2-3.4) K/uL Wallace # (Auto) 0.50 (0.11-0.59) K/uL Eos # (Auto) 0.09 (0-0.5) K/uL Baso # (Auto) 0.02 (0-0.2) K/uL Immature Gran # (Auto) 0.02 (0.00-0.02) K/uL PT 10.3 (9.0-12.0) Seconds INR 1.0 (0.9-1.1) APTT 24.5 (21.0-31.0) Seconds PTT Ratio 0.9 Sodium 141 (136-145) mmol/L Potassium 3.7 (3.5-5.1) mmol/L Chloride 107 (98-107) mmol/L Carbon Dioxide 29 (21-32) mmol/L Anion Gap 5.0 (3-11) BUN 13 (7-18) mg/dl Creatinine 0.74 (0.6-1.2) mg/dl Est Cr Clr Drug Dosing 62.3 ml/min Est GFR ( Amer) 93.2 ml/min Est GFR (Non-Af Amer) 80.4 ml/min BUN/Creatinine Ratio 18.1 (10-20) Glucose 138 H (70-99) mg/dl POC Glucose (70-99) mg/dl Calcium 8.4 L (8.5-10.1) mg/dl Magnesium 2.0 (1.8-2.4) mg/dl Total Bilirubin 0.4 (0.2-1) mg/dl AST 12 L (15-37) U/L ALT 14 (12-78) U/L Alkaline Phosphatase 91 (45-117) U/L Troponin I < 0.015 (0-0.045) ng/ml Total Protein 6.9 (6.4-8.2) gm/dl Albumin 3.3 L (3.4-5.0) gm/dl Globulin 3.6 (2.5-4.0) gm/dl Albumin/Globulin Ratio 0.9 (0.9-2) SARS-CoV-2, RNA, NAAT (NEGATIVE) 07/16/21 07/16/21 Range/Units 00:29 00:33 WBC (4.8-10.8) K/uL RBC (4.2-5.4) M/uL Hgb (12.0-16.0) g/dL Hct (37-47) % MCV (80-100) fL MCH (25-34) pg MCHC (32-36) g/dL RDW Std Deviation (36.4-46.3) fL RDW Coeff of Carole (11.5-14.5) % Plt Count (130-400) K/uL MPV (7.4-10.4) fL Immature Gran % (Auto) % Neut % (Auto) % Lymph % (Auto) % Wallace % (Auto) % Eos % (Auto) % Baso % (Auto) % Neut # (Auto) (1.4-6.5) K/uL Lymph # (Auto) (1.2-3.4) K/uL Wallace # (Auto) (0.11-0.59) K/uL Eos # (Auto) (0-0.5) K/uL Baso # (Auto) (0-0.2) K/uL Immature Gran # (Auto) (0.00-0.02) K/uL PT (9.0-12.0) Seconds INR (0.9-1.1) APTT (21.0-31.0) Seconds PTT Ratio Sodium (136-145) mmol/L Potassium (3.5-5.1) mmol/L Chloride (98-107) mmol/L Carbon Dioxide (21-32) mmol/L Anion Gap (3-11) BUN (7-18) mg/dl Creatinine (0.6-1.2) mg/dl Est Cr Clr Drug Dosing ml/min Est GFR ( Amer) ml/min Est GFR (Non-Af Amer) ml/min BUN/Creatinine Ratio (10-20) Glucose (70-99) mg/dl POC Glucose 157 H (70-99) mg/dl Calcium (8.5-10.1) mg/dl Magnesium (1.8-2.4) mg/dl Total Bilirubin (0.2-1) mg/dl AST (15-37) U/L ALT (12-78) U/L Alkaline Phosphatase (45-117) U/L Troponin I (0-0.045) ng/ml Total Protein (6.4-8.2) gm/dl Albumin (3.4-5.0) gm/dl Globulin (2.5-4.0) gm/dl Albumin/Globulin Ratio (0.9-2) SARS-CoV-2, RNA, NAAT NEGATIVE (NEGATIVE) Imaging Data Radiologist's Impression: Head CT 07/15/21 23:[address] DOSE: HISTORY: Left-sided weakness. Stroke Like Symptoms TECHNIQUE: Multiaxial CT images of the head were performed without the use of intravenous contrast. Automated exposure control was utilized for this study. A dose lowering technique was utilized adhering to the principles of ALARA. Comparison: None. Findings: The paranasal sinuses and mastoid air cells are clear. The calvarium and skull base are intact. There is no mass, hematoma, midline shift.. White mat ter hypodensity is nonspecific but suggestive of microvascular ischemic change. The ventricles and sulci demonstrate mild age-related involutional changes. Age- indeterminate lacunar infarct within the right thalamus. Old lacunar infarcts within the right basal ganglia and left frontal lobe. Impression: 1. Age-indeterminate lacunar infarct within the right thalamus. 2. Mild atrophy and microvascular ischemic changes are noted. 3. No intracranial hemorrhage. ACT 112: Negative or not required by law. Electronically signed by: Balwinder Nam M.D. 07/16/2021 7:57 AM Head CTA 07/15/21 23:56 HEAD & NECK CTA HISTORY: Left-sided weakness. Stroke Like Symptoms TECHNIQUE: Multiaxial CT images of the head were performed following the intravenous administration of contrast to evaluate the major cerebral vessels. Multiaxial CT images of the neck were also performed following the intravenous administration of contrast to evaluate the major cervical vessels. Maximum intensity projection images were also obtained. A dose lowering technique was utilized adhering to the principles of ALARA. COMPARISON: None. FINDINGS: The major dural venous sinuses appear patent. 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 Mild multifocal stenosis within the intracranial internal carotid arteries due to the calcified plaque. Mild multifocal stenosis seen within the left JENNIFER and proximal right MCA. The distal vertebral arteries and basilar artery are patent. No occlusion or aneurysm identified within the [place]. Moderate calcified plaque within the aortic arch. There is mild focal narrowing of approximately 30% at the takeoff of the left subclavian artery. There is also mild focal stenosis of approximately 30-50% within the proximal right subclavian artery. Bilateral common carotid arteries and vertebral arteries are patent. Mild calcified plaque within the bilateral carotid bifurcations. The left internal carotid artery is widely patent. There is a focal intimal flap within the proximal right internal carotid artery suggesting a chronic dissection. Remaining mid to distal right internal carotid artery is widely patent.. There is 1.2 cm right thyroid nodule. This does not meet CT criteria for follow-up. IMPRESSION: 1. No significant occlusion or aneurysm within the [place]. 2. 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 3. Mild multifocal stenosis within the left JENNIFER and proximal right MCA. 4. Focal intimal flap within the proximal right internal carotid artery suggesting a chronic dissection. 5. No high-grade stenosis or occlusion within the bilateral carotid or vertebral arteries. 6. Additional findings as described above. ACT 112: Negative or not required by law. Electronically signed by: Balwinder Nam M.D. 07/16/2021 7:55 AM Neck CTA 07/15/21 23:56 HEAD & NECK CTA HISTORY: Left-sided weakness. Stroke Like Symptoms TECHNIQUE: Multiaxial CT images of the head were performed following the intravenous administration of contrast to evaluate the major cerebral vessels. Multiaxial CT images of the neck were also performed following the intravenous administration of contrast to evaluate the major cervical vessels. Maximum intensity projection images were also obtained. A dose lowering technique was utilized adhering to the principles of ALARA. COMPARISON: None. FINDINGS: The major dural venous sinuses appear patent. 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 Mild multifocal stenosis within the intracranial internal carotid arteries due to the calcified plaque. Mild multifocal stenosis seen within the left JENNIFER and proximal right MCA. The distal vertebral arteries and basilar artery are p atent. No occlusion or aneurysm identified within the [place]. Moderate calcified plaque within the aortic arch. There is mild focal narrowing of approximately 30% at the takeoff of the left subclavian artery. There is also mild focal stenosis of approximately 30-50% within the proximal right subclavian artery. Bilateral common carotid arteries and vertebral arteries are patent. Mild calcified plaque within the bilateral carotid bifurcations. The left internal carotid artery is widely patent. There is a focal intimal flap within the proximal right internal carotid artery suggesting a chronic dissection. Remaining mid to distal right internal carotid artery is widely patent.. There is 1.2 cm right thyroid nodule. This does not meet CT criteria for follow-up. IMPRESSION: 1. No significant occlusion or aneurysm within the [place]. 2. 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 3. Mild multifocal stenosis within the left JENNIFER and proximal right MCA. 4. Focal intimal flap within the proximal right internal carotid artery suggesting a chronic dissection. 5. No high-grade stenosis or occlusion within the bilateral carotid or vertebral arteries. 6. Additional findings as described above. ACT 112: Negative or not required by law. Electronically signed by: Balwinder Nam M.D. 07/16/2021 7:[address] head: Comparison: MRI brain 03/13/2008. Motion artifact limits evaluation. No acute intracranial hemorrhage or mass-effect. No CT evidence of acute territorial infarct. Chronic lacunar infarct at right basal ganglia and possibly at left aspect of arely. Also likely small chronic infarct in the left frontal operculum. White matter hypodensities, most likely representing small vessel ischemic change. Global cerebral volume loss. Radiologist: Catarino Riley MD CTA head: Comparison: MRA head 04/23/2007. There is an arteriovenous malformation of the right cerebellopontine angle measuring up to 1.6 cm and with associated deep draining vein. No evidence of large vessel occlusion. Atherosclerotic plaque of internal carotid arteries with mild resulting stenoses. Mild to moderate stenosis of left anterior cerebral artery. Radiologist: Catarino Riley MD CTA neck: Comparison: Carotid ultrasound 05/02/2006. There is dissection flap of right proximal internal carotid artery with associated contour irregularity/outpouching, most likely chronic dissection. Atherosclerotic plaque. No evidence of hemodynamically significant stenoses or vessel occlusion. 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 1.3 cm right thyroid nodule. Degenerative changes of the spine. Radiologist: Catarino Riley MD ECG Data Attestation: I personally reviewed and interpreted this ECG as follows: Indication: + weakness Rate (beats per minute): 86 Rhythm: + normal sinus ECG Intervals/blocks: + Normal QRS and + Normal QT ECG [place]: + Normal ECG ST segments: + Normal ST segments MDM Narrative This is a 71-year-old female brought in by EMS due to fall and possible strokelike symptoms. Stroke alert activated and patient sent for CT imaging. Discussed case with the [facility] teleneurologist who also evaluated the patient. Additional information obtained from the patient's son at bedside. Patient's INR resulted at 1.0, while the neurologist was performing their assessment. CT reads were reassuring, these were reviewed by the neurologist also who also discussed the AVM with their on-call neurosurgeon. Patient's other labs reassuring. Decision made to offer TNKase to the patient. She and son at beds rell verbalized understanding of this. I did contact pharmacy initially as patient was inside the window. Patient was recontacted after family agreed at an this was started at bedside. Patient remained hemodynamically stable, no significant hypertension. Case discussed with hospitalist for admission. An order was placed for continuous cardiac monitoring. The monitor shows a rate of _78_ with _normal sinus_ rhythm. Impression & Plan Acute CVA (cerebrovascular accident), Hypertension, Tobacco abuse Discharge Plan Visit Data Chief Complaint: Stroke/CVA Symptoms Stated Complaint: STROKE SX ED Provider: Kiera Horner Discharge Problem: Acute CVA (cerebrovascular accident), Hypertension, Tobacco abuse Patient Disposition: Admitted As Inpatient Condition: Fair Discharge Instructions Interventions: ED Discharge Assessment Last Done: 07/16/21 03:50 Discharge Problem: Hypertension Qualifiers: Hypertension type: unspecified Qualified Code(s): I10 - Essential (primary) hypertension
[2021-07-16] MEDS ORDERED: OPTIRAY 320 125ml IV ONE (00:24)
[2021-07-16 00:51] LABS: Basophils # (auto) 0.02 K/uL (0-0.2); Basophils % (auto) 0.3 %; Eosinophils # (auto) 0.09 K/uL (0-0.5); Eosinophils % (auto) 1.2 %; Hematocrit (blood only) 41.5 % (37-47); Hemoglobin 13.8 g/dL (12.0-16.0); Immature Granulocytes # (auto) 0.02 K/uL (0.00-0.02); Immature Granulocytes % (auto) 0.3 %; Lymphocytes % (auto) 16.8 %; Mean Corpuscular Hemoglobin 31.8 pg (25-34); Mean Corpuscular Hgb Conc 33.3 g/dL (32-36); Mean Corpuscular Volume 95.6 fL (80-100); Mean Platelet Volume 10.2 fL (7.4-10.4); Monocytes % (auto) 6.5 %; Neutrophils # (auto) 5.82 K/uL (1.4-6.5); Neutrophils % (auto) 74.9 %; Platelet Count 223 K/uL (130-400); RDW Coefficient of Variation 13.3 % (11.5-14.5); RDW Standard Deviation 45.8 fL (36.4-46.3); Red Blood Count 4.34 M/uL (4.2-5.4); White Blood Count 7.75 K/uL (4.8-10.8)
[2021-07-16 01:05] LABS: Partial Thromboplastin Ratio 0.9; Partial Thromboplastin Time 24.5 Seconds (21.0-31.0); Prothrombin Time 10.3 Seconds (9.0-12.0)
[2021-07-16] MEDS ORDERED: SODIUM CHLORIDE 0.9% 10ML FLUSH IV STA (01:10)
[2021-07-16] MEDS ORDERED: STAT IV STA (01:10)
[2021-07-16 01:11] LABS: Alanine Aminotransferase 14 U/L (12-78); Albumin Level 3.3 gm/dl (3.4-5.0); Aspartate Aminotransferase 12 U/L (15-37); BUN Creatinine Ratio 18.1 (10-20); Blood Urea Nitrogen 13 mg/dl (7-18); Calcium 8.4 mg/dl (8.5-10.1); Carbon Dioxide 29 mmol/L (21-32); Chloride 107 mmol/L (98-107); Creatinine Clr Calc Pharmacy 62.3 ml/min; Est GFR (African American) 93.2 ml/min; Est GFR (Non-African American) 80.4 ml/min; Glucose 138 mg/dl (70-99); Potassium 3.7 mmol/L (3.5-5.1); Sodium 141 mmol/L (136-145)
[2021-07-16] MEDS ORDERED: No Aspirin within 24hrs of THROMBOLYTIC-Stroke PO SCH (01:15)
[2021-07-16 01:16] LABS: Albumin Globulin Ratio 0.9 (0.9-2); Alkaline Phosphatase 91 U/L (45-117); Bilirubin,Total 0.4 mg/dl (0.2-1); Globulin 3.6 gm/dl (2.5-4.0); Total Protein 6.9 gm/dl (6.4-8.2); Troponin I < 0.015 ng/ml (0-0.045)
[2021-07-16] MEDS ORDERED: TENECTEPLASE 15 MG in SYRINGE 0 ML IV ONE (01:20)
[2021-07-16] MEDS ORDERED: LIDOCAINE 5% 1 PATCH TD STA (02:05)
--- NOTE | 2021-07-16 02:49 | History & Physical Report ---
Date of Service July 16, 2021 Assessment & Plan (1) Stroke: Plan: Patient is a 71 year old female with PMHx Pulmonary Embolism x6, COPD, DM2, suspected anticoagulation disorder, who presents after sustaining 2 falls overnight in addition to L sided weakness, L sided facial droop, and slurred speech with last known well at 11PM. Stroke -Patient with last known well 11PM on 07/05/21 presenting with falls, LUE and LLE weakness, L sided facial droop, and slurred speech -CT head stat read with "no acute intracranial hemorrhage or mass effect and no CT evidence of acute territorial infarct." Imaging does note chronic lacunar infarct at the R basal ganglion and possibly at the L arely in addition to small chronic infarct in the L frontal operculum. 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 No evidence of hemodynamically significant stenosis or vessel occlusion. -Teleneurology was consulted who discussed with patient the risks and benefits of TNKase therapy to which patient agreed it would be beneficial -As patient received TNKase, will repeat CT head in 24 hours to monitor for bleed -Will also admit patient to ICU for close monitoring -MRI w/wo con ordered -TTE in AM -Labetalol 10mg q15m PRN for SBP >180 or DBP >105 -Hold ASA 24 hours -Patient will likely require statin therapy, Lipid panel and HgbA1c in AM ordered -Neurology consulted COPD -Continue home Combivent Hx PE -Suspect some anticoagulation disorder due to patient's history and daughter with clotting disorder -Had been taking her Warfarin 6mg daily, however, INR on admission was 1 -Will hold on anticoagulation workup on admission as patient had received TNKase and unsure of how it would skew results -Patient may benefit more from a novel anticoagulant vs. warfarin dosage adjustment prior to discharge DM2 -Hold home metformin -Monitor sugars, SSI or basal bolus additions as needed Dispo: ICU for close monitoring s/p TNKase administration FEN: NPO DVT: contraindicated at this time, SCDs Code: Full History of Present Illness Chief Complaint: falls, L side weakness Primary Care Provider: Denis Samuel Patient is a 71 year old female with PMHx Pulmonary Embolism x6, COPD, DM2, suspected anticoagulation disorder, who presents after sustaining 2 falls overnight in addition to L sided weakness, L sided facial droop, and slurred speech with last known well at 11PM. Patient notes that for the past 1 week she has actually been feeling weaker and unwell, however, noted that she had fallen 2x throughout the night. She notes that on the second fall she was found by her who at that time had noted L sided facial droop on the patient and called for emergency services due to concern for stroke. Patient denies any history of stroke, though states that she has had "6 pulmonary emboli" in her life and that she has been taking daily warfarin as a result. She notes that she takes 6mg of Warfarin daily, including today. She feels her initial blood clots started with OCPs, but had them even after discontinuation. Of note, her daughter has a clotting disorder thought to be lupus anticoagulant related. Patient currently notes that she is having some neck and back pain in addition to L hand and leg weakness. She has minimal use of her L arm/hand and cannot lift the L leg, but can move her ankle. She feels that her sensation of all extremities is intact and equal. She is not having a headache. She denies any visual disturbances. She denies any fever, chills, SOB, chest pain, abdominal pain, nausea. In the ED patient was evaluated by Telestroke and after discussion between the family decision was held to administration of TNKase. Med Hx: Pulmonary Embolism x6, COPD, DM2, suspected anticoagulation disorder Surg Hx: Lap liu Soc Hx: Daily smoker since age 12, currently ~1/2PPD, denies tobacco or illicit drug use. Allergies Allergy/AdvReac Type Severity Reaction Status Date / Time Sulfa (Sulfonamide Allergy Severe RASH, Verified 07/16/21 00:28 Antibiotics) SHORTNESS OF BREATH bacitracin Allergy Intermediate facial Verified 07/16/21 00:28 swelling and erythema Home Medications Medication Instructions Recorded Confirmed Type ibuprofen 200 mg tablet (Advil) 200 mg PO Q6H PRN 07/16/21 07/16/21 History ipratropium 20 mcg-albuterol 100 1 puff INHALATION QID 07/16/21 07/16/21 History mcg/actuation mist for inhalation (Combivent Respimat) metformin 1,000 mg tablet 1,000 mg PO DAILY 07/16/21 07/16/21 History warfarin 1 mg tablet 1 mg PO DAILY 07/16/21 07/16/21 History warfarin 5 mg tablet 5 mg PO DAILY 07/16/21 07/16/21 History Past Med/Surg History Medical History COPD (chronic obstructive pulmonary disease) Diabetes Diabetic neuropathy Heart disease PE (pulmonary embolism) Surgical History S/P IVC filter Family History Mother , early 90s of leukemia Rheumatoid arthritis Leukemia Father , age 60 of a stroke Stroke Daughter Lupus Social History (Updated 07/16/21 @ 08:07 by Nolberto Stokes MD) Smoking Status: Current every day smoker Tobacco Type: Cigarettes Age Started Using Tobacco: 12; Cigarettes Per Day: 15; Do You Dip or Chew Tobacco: No; Tobacco Cessation Education Requested by Patient: Yes Hx Alcohol Use: No Hx Substance Use: No Preferred Language: Salvadorean Communication Ability: Effective Property Caretaker Required: No Beliefs That Will Affect Care: None Current Living Situation: Spouse current occupational status: retired 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[place] ) Other Information That Helps Us Care for You: No Feels Safe at Home: Yes Safety Concerns: Feels Safe At This Time Assistive Devices: None Review of Systems Review of Systems: All systems reviewed & are unremarkable except as noted in Subjective Physical Exam Constitutional: + frail appearing and cooperative; no acute distress Eyes: PERRL, conjunctivae normal, anicteric sclerae normal visual maxwell by confrontation and reactive pupils ENMT: external ear and nose normal, oropharynx normal L sided facial droop Neck: trachea midline, no thyromegaly Respiratory: normal respiratory effort, lungs clear to auscultation Cardiovascular: RRR, no murmur, no edema Gastrointestinal (Abdomen): normal bowel sounds, soft, nontender, no hepatosplenomegaly Musculoskeletal: Head/Neck/Chest: normocephalic and head atraumatic -Unable to move LUE or squeeze with her L hand -Unable to move LLE in flexion, extension, abduction, adduction. Able to dorsiflex the ankle. Skin: no rashes, warm and dry Neurologic: normal touch/pain/proprioception, CN's II-XI intact bilaterally and awake Speech / Cognition: + abnormal speech (slurred speech ) Motor/Sensory: + abnormal movement (minimal movement of L arm or leg ) Cranial Nerves: PERRL and EOM intact bilaterally Coordination: + abnormal [id number] test (unable t ocomplete on L side ) and + abnormal lcyp-wv-pmmm test (unable to complete on L side ) Psychiatric: Orientation: alert and oriented x 3 Eye Contact: + fair eye contact Results & Data Results & Data ([facility]) Vital Signs (Past 12 Hours) Vital Signs Temp Pulse Pulse Resp BP BP Pulse Ox 07/16/21 02:36 89 20 173/99 H 96 07/16/21 02:23 90 16 111/91 99 07/16/21 02:06 89 20 164/98 H 95 07/16/21 01:51 85 16 147/67 H 95 07/16/21 00:38 88 18 150/68 H 94 07/16/21 00:09 36.6 C 92 H 18 172/135 H 99 Code Status & VTE Plan VTE Prophylaxis Plan VTE Prophylaxis will be ordered: No Critical Care Time 45 minutes Supervising Physician Co-Signing Physician Notes Attending addendum: I have physically seen this patient, have supervised the medical residents activities, and agree with the H&P unless as otherwise noted. 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
[2021-07-16] MEDS ORDERED: ACETAMINOPHEN 325 MG TAB PO PRN (04:17)
[2021-07-16] MEDS ORDERED: PHARMACIST DISCHARGE MED REC CONSULT PRN (04:17)
[2021-07-16] MEDS ORDERED: ICU PROTOCOL FOR HYPERGLYCEMIA PRN (04:17)
[2021-07-16] MEDS ORDERED: LABETALOL HCL IV 5 MG/ML 20ML IV PRN ×2 (04:17→07:28)
--- NOTE | 2021-07-16 04:25 | Critical Care Consultation ---
Date of Consultation July 16, 2021 Assessment & Plan (1) Acute CVA (cerebrovascular accident): Impression: 71-year-old female with past medical history of COPD, DM type II, and suspected anticoagulation disorder with history of PEs (on Coumadin) who presents to the ICU following TPA administration in the ER for acute CVA with left-sided hemiplegia. Neuro - Acute CVApatient with sudden onset of strokelike symptoms as described in HPI. Now presents with left hemiplegia, left facial droop, and mild dysarthria. -CT head stat read with "no acute intracranial hemorrhage or mass effect and no CT evidence of acute territorial infarct." Imaging does note chronic lacunar infarct at the R basal ganglion and possibly at the L arely in addition to small chronic infarct in the L frontal operculum. 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 No evidence of hemodynamically significant stenosis or vessel occlusion. -Patient on Coumadin but INR was within normal limits. Patient was evaluated by [facility] [place] neurolog[place] and recommended TPA which was administered at 0151 -Follow-up MRI, TTE -Follow-up hemoglobin A1c, lipid panel -Admitted to ICU for first 24-hour post TPA protocol. We will follow-up CT head 24 hours post TPA administration -Neurology consulted, will follow up recommendations for ASA, Plavix Cardiac - Currently hemodynamically stable and NSR on monitor Troponin negative Continuous monitoring on telemetry Respiratory - COPDlungs currently clear to auscultation no respiratory distress. Maintaining oxygen saturation on room air -Continue home dose Combivent Respimat inhaler -Continuous monitoring on pulse ox GI - N.p.o. pending swallow study RENAL/LYTES - Creatinine within normal limits, monitor routine BMP and replete electrolytes as indicated - Strict I's and O's ENDO - DM type IIhold Metformin following contrast -Sliding scale -ICU hyperglycemic protocol e HEME - H&H stable, monitor for signs of bleeding following TPA administration. Routine CBC Anticoagulation disorder?Patient normally on warfarin but INR was within normal limits. Hold warfarin following TPA administration for now ID - No indication for infectious process at this time LINES/IV ACCESS - Peripheral IVs DVT PROPHYLAXIS - SCDs, no anticoagulation following TPA administration Thank you for allowing us to participate in the care of this patient. Please refer to my attending physician's documentation for any further recommendations. (2) COPD (chronic obstructive pulmonary disease): (3) Diabetes: Supervising Physician Co-Signing Physician Notes Seen and examined. Discussed with critical care JOSEPH. Please refer to my addendum from today for any additional details History of Present Illness History of Present Illness Patient is a 71-year-old female with past medical history of PE (on Coumadin), COPD, DM type II who presented to the emergency department with strokelike symptoms. Patient presented with left-sided facial droop and left sided hemiplegia of the upper and lower extremity. Patient states that she was feeling weak for 1 week and reported falling twice last evening. Patient states that she was awake watching TV when she got up to go to the bathroom, and had very little use of her left side and fell. Patient's heard the fall and found her to have left-sided facial droop and called EMS. On arrival to the ER, she went for CT head which was negative for acute intracranial findings, but did notes chronic lacunar infarct right basal ganglion and possibly the left arely with addition to small chronic infarct in the left frontal operculum. Her NIH was 11. Although patient is on Coumadin INR was within normal limits. She was evaluated by [facility] teleneurology recommended TPA, which was administered at 0151. Patient then went for CTA head and neck which was negative for large vessel occlusion. She is now being admitted to ICU for 24-hour post TPA protocol. On arrival to the ICU the patient is alert and oriented and displays mild dysarthria but no aphasia. She has no visual changes. She denies headache or dizziness. She does report an episode of nausea. She has left facial droop and very little use of the left upper and lower extremities. She does report feeling sensation bilaterally but states it feels more numb on the left side of both upper and lower extremities. Patient also states that she feels slightly short of breath. She denies any recent fevers, illness, cough, chest pain or palpitations, abdominal pain, vomiting, diarrhea. She does report soreness at her left lateral chest wall, which she states started after her fall earlier this evening. Allergies Allergy/AdvReac Type Severity Reaction Status Date / Time Sulfa (Sulfonamide Allergy Severe RASH, Verified 07/16/21 00:28 Antibiotics) SHORTNESS OF BREATH bacitracin Allergy Intermediate facial Verified 07/16/21 00:28 swelling and erythema Home Medications Medication Instructions Recorded Confirmed Type ibuprofen 200 mg tablet (Advil) 200 mg PO Q6H PRN 07/16/21 07/16/21 History ipratropium 20 mcg-albuterol 100 1 puff INHALATION QID 07/16/21 07/16/21 History mcg/actuation mist for inhalation (Combivent Respimat) metformin 1,000 mg tablet 1,000 mg PO DAILY 07/16/21 07/16/21 History warfarin 1 mg tablet 1 mg PO DAILY 07/16/21 07/16/21 History warfarin 5 mg tablet 5 mg PO DAILY 07/16/21 07/16/21 History Patient History Social History Smoking Status: Current every day smoker Tobacco Type: Cigarettes Cigarettes Per Day: 15; Do You Dip or Chew Tobacco: No; Tobacco Cessation Education Requested by Patient: Yes Hx Alcohol Use: No Hx Substance Use: No Preferred Language: Indonesian Communication Ability: Effective Pulp Beater Required: No Beliefs That Will Affect Care: None Current Living Situation: Spouse Other Information That Helps Us Care for You: No Feels Safe at Home: Yes Safety Concerns: Feels Safe At This Time Assistive Devices: Glasses Review of Systems Constitutional: as per Subjective / HPI Physical Exam Constitutional: + frail appearing and cooperative; no acute distress Eyes: PERRL, conjunctivae normal, anicteric sclerae ENMT: external ear and nose normal, oropharynx normal Neck: trachea midline, no thyromegaly Respiratory: normal respiratory effort, lungs clear to auscultation Cardiovascular: RRR, no murmur, no edema Heart Sounds: normal S1 and normal S2 Vessels: no JVD Extremities: no edema Gastrointestinal (Abdomen): normal bowel sounds, soft, nontender, no hepatosplenomegaly Musculoskeletal: Left-sided hemiplegia. Right side with normal strength and ROM Skin: no rashes, warm and dry Neurologic: + does not move all extremities Speech / Cognition: + abnormal speech (Mild dysarthria) Cranial Nerves: sense of smell intact, PERRL, normal accommodation, EOM intact bilaterally, normal gag reflex, normal hearing, able to rotate head bilaterally, no nystagmus and symmetric palate elevation; + abnormal facial strength, + tongue not midline and + not able to elevate shoulders Psychiatric: Orientation: oriented x 3 Results & Data Results & Data ([facility]) Vital Signs (Past 12 Hours) Vital Signs Temp Pulse Pulse Resp BP BP Pulse Ox 07/16/21 03:38 82 18 179/82 H 98 07/16/21 03:23 80 18 178/68 H 97 07/16/21 03:08 81 16 178/71 H 96 07/16/21 02:53 85 18 179/72 H 96 07/16/21 02:51 83 16 178/85 H 97 07/16/21 02:36 89 20 173/99 H 96 07/16/21 02:21 90 16 111/91 99 07/16/21 02:06 89 20 164/98 H 95 07/16/21 01:51 85 16 147/67 H 95 07/16/21 00:38 88 18 150/68 H 94 07/16/21 00:09 36.6 C 92 H 18 172/135 H 99 Coding Level of Care Code 74189 Inpt Consult Level 5 Diagnoses COPD (chronic obstructive pulmonary disease) J44.9 Diabetes E11.9 Acute CVA (cerebrovascular accident) I63.9
[2021-07-16] MEDS ORDERED: GADOBUTROL 30ML VIAL IV ONE (06:19)
[2021-07-16] MEDS ORDERED: GLUCOSE 10 TABS/TUBE PO PRN (06:46)
[2021-07-16] MEDS ORDERED: CARBOHYDRATES FOR HYPOGLYCEMIA PO PRN (06:46)
[2021-07-16] MEDS ORDERED: GLUCAGON FOR INJ 1 MG VIAL SQ PRN (06:46)
[2021-07-16] MEDS ORDERED: DEXTROSE 50% 50 ML SYRINGE IV PRN (06:46)
[2021-07-16] MEDS ORDERED: GLUCOSE 40% GEL 15 GM TUBE PO PRN (06:46)
--- NOTE | 2021-07-16 06:49 | Hospitalist Progress Note ---
Date of Service July 16, 2021 Assessment & Plan (1) Stroke: Plan: Patient is a 71 year old female with PMHx Pulmonary Embolism x6, COPD, DM2, suspected anticoagulation disorder, who presents after sustaining 2 falls overnight in addition to L sided weakness, L sided facial droop, and slurred speech with last known well at 11PM. Stroke -Patient with last known well 11PM on 07/05/21 presenting with falls, LUE and LLE weakness, L sided facial droop, and slurred speech -CT head stat read with "no acute intracranial hemorrhage or mass effect and no CT evidence of acute territorial infarct." Imaging does note chronic lacunar infarct at the R basal ganglion and possibly at the L arely in addition to small chronic infarct in the L frontal operculum. 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 No evidence of hemodynamically significant stenosis or vessel occlusion. -Teleneurology was consulted who discussed with patient the risks and benefits of TNKase therapy to which patient agreed it would be beneficial -As patient received TNKase, will repeat CT head in 24 hours to monitor for bleed and monitor in ICU -MRI brain: 1. 1.6 x 0.6 cm acute infarct within the lateral right thalamus/posterior limb of the right internal capsule. No acute hemorrhage. No mass effect. 2. Old left frontal lobe infarct. Multiple old lacunar infarcts within the bilateral basal ganglia. -TTE: EF 65-70. Severe concentric LVH. -Labetalol 10mg q15m PRN for SBP >180 or DBP >105 for status post TNKase, will extend these goals for 48 hours post stroke -Hold ASA 24 hours. High dose statin after 48 hours -Patient will likely require statin therapy, Lipid panel and A1c pending -Passed speech/swallow -Neurology consulted, recs appreciated COPD -Continue home Combivent. Albuterol QIDR PRN. Hx PE -Suspect some anticoagulation disorder due to patient's history and daughter with clotting disorder -Had been taking her Warfarin 6mg daily, however, INR on admission was 1 -Will hold on anticoagulation workup on admission as patient had received TNKase and unsure of how it would skew results -Patient may benefit more from a novel anticoagulant vs. warfarin dosage adjustment prior to discharge DM2 -Hold home metformin -Monitor sugars, SSI or basal bolus additions as needed Dispo: ICU for close monitoring s/p TNKase administration FEN: HH, easy to chew. No IV fluids. Miralax for bowel regimen DVT: contraindicated at this time, SCDs Code: Full Admission and Anticipated Discharge Date Admission Date: July 16, 2021 Supervising Physician Co-Signing Physician Notes I personally examined the patient and verified all simons points of history and exam, discussed case, and agree with decision making with Dr Stearns. Feeling about the same. Also has some degree of abdominal painno she tried a bowel movement earlier and was not able to. Pain is diffuse more the left sided. Neuro deficits still about the same. present at the bedside, updated the best my ability and to their satisfaction. In general she is awake and alert pleasant fatigued no distress. HEENT normocephalic atraumatic mucous membranes moist. Breathing unlabored no accessory muscle use good effort. Skin shows no rashes no pallor or icterus. Neuro with diffuse right-sided weakness and a bit of slurred speech. Abdomen soft mildly distended mild left-sided tenderness no guarding rebound rigidity no masses organomegaly Strokeappears to be intracranial atherosclerosis related to lipids, diabetes, smoking, possibly hypertensionpost thrombolysiscurrently per protocol. Eventually start aspirin and Lipitor, await A1c to see if any specific measures are needed for sugar, follow blood pressure, encouraged smoke cessation. PT/OT eval and treat. Abdominal painappears most consistent with constipationMiraLAX. DVT prophylaxisjust had thrombolytics. Subjective Some dysarthria. No aphasia. Passed speech and swallow. She did not hit head during fall yesterday. Has DM2 and copd. pAF on warfarin 6mg daily, levels last checked a month ago. Current symptoms are fatigue and worsened SOB vs yesterday. Dysarthria and L sided wkness unchanged from admission. Denied AMS at any time. Review of Systems Review of Systems: All systems reviewed & are unremarkable except as noted in HPI & below Constitutional: Denies fever, chills Eyes: + some L blurry vision, acute ENT: Denies sore throat, sinus pain Cardiovascular: Denies chest pain, palpitations Respiratory: See HPI Gastrointestinal: Denies abdominal pain, nausea, vomiting, constipation, diarrhea Genitourinary: Denies urinary symptoms including dysuria Musculoskeletal: See HPI Neurological: Denies headache, numbness, tingling, focal weakness Physical Exam Physical Exam: General: Grossly A&O. NAD. Cooperative. HEENT: Atraumatic, normocephalic. EOMI. PERRL. No nystagmus. Pulm: CTAB anteriorly and left posterior. -wheezes, -rales, -rhonchi. No respiratory distress. + pleuritic L chest pain w/ deep breaths (started yesterday). Cardiac: RRR, -mrg. Radial pulses intact and symmetrical. Abdominal: Nontender, nondistended, soft. Neuro: LUE, LLE, strength 0-1/5. Good tone. Shrugging bilat shoulders. [employer] strength on L is minimal. + dysarthria but no aphasia. Left lower facial facial droop. Other CN intact. Normal finger to nose on right. Results & Data Results & Data ([facility]) Vital Signs (Past 12 Hours) Vital Signs vitals reviewed. 93x1. BPs up to upper 170s systolic. mid-upper 90s on room air. Temp Pulse Pulse Resp BP BP BP 07/16/21 05:23 93 H 15 165/99 H 07/16/21 04:53 90 17 126/85 07/16/21 04:23 87 19 147/97 H 07/16/21 03:53 36.7 C 78 21 181/87 H 07/16/21 03:38 82 18 179/82 H 07/16/21 03:23 80 18 178/68 H 07/16/21 03:08 81 16 178/71 H 07/16/21 02:53 85 18 179/72 H 07/16/21 02:51 83 16 178/85 H 07/16/21 02:36 89 20 173/99 H 07/16/21 02:21 90 16 111/91 07/16/21 02:06 89 20 164/98 H 07/16/21 01:51 85 16 147/67 H 07/16/21 00:38 88 18 150/68 H 07/16/21 00:09 36.6 C 92 H 18 172/135 H Pulse Ox 07/16/21 05:23 96 07/16/21 04:53 95 07/16/21 04:23 95 07/16/21 03:53 94 07/16/21 03:38 98 07/16/21 03:23 97 07/16/21 03:08 96 07/16/21 02:53 96 07/16/21 02:51 97 07/16/21 02:36 96 07/16/21 02:21 99 07/16/21 02:06 95 07/16/21 01:51 95 07/16/21 00:38 94 07/16/21 00:09 99 Laboratory Results midnight labs cbc stable. INR 1.0, was 3.5 11/2020. bmp stable. K 3.7. Cr .74. a1c pending. 7.1 in 11/2020. lipid profile pending. MRI 1. 1.6 x 0.6 cm acute infarct within the lateral right thalamus/posterior limb of the right internal capsule. No acute hemorrhage. No mass effect. 2. Old left frontal lobe infarct. Multiple old lacunar infarcts within the bilateral basal ganglia. cxr no acute finding per my read. Admission ecg marked sinus arrhythmia not in afib Chest X-Ray 07/15/21 23:56 XR chest 1V portable CLINICAL HISTORY: Stroke Like Symptoms COMPARISON STUDY: Chest radiograph and chest CT July 28, 2018. FINDINGS: Lung volumes are normal. Lungs are clear. There is no pneumothorax or pleural effusion. Cardiac size is normal. Mediastinal contours are normal. There is no evidence for pulmonary edema. IMPRESSION: No acute cardiopulmonary findings. ACT 112: Negative or not required by law. Electronically signed by: Dawit Sorto M.D. 07/16/2021 10:[address] 07/15/21 23:[address] DOSE: HISTORY: Left-sided weakness. Stroke Like Symptoms TECHNIQUE: Multiaxial CT images of the head were performed without the use of intravenous contrast. Automated exposure control was utilized for this study. A dose lowering technique was utilized adhering to the principles of ALARA. Comparison: None. Findings: The paranasal sinuses and mastoid air cells are clear. The calvarium and skull base are intact. There is no mass, hematoma, midline shift.. White matter hypodensity is nonspecific but suggestive of microvascular ischemic change. The ventricles and sulci demonstrate mild age-related involutional changes. Age-indeterminate lacunar infarct within the right thalamus. Old lacunar infarcts within the right basal ganglia and left frontal lobe. Impression: 1. Age-indeterminate lacunar infarct within the right thalamus. 2. Mild atrophy and microvascular ischemic changes are noted. 3. No intracranial hemorrhage. ACT 112: Negative or not required by law. Electronically signed by: Balwinder Nam M.D. 07/16/2021 7:57 AM Electronically signed by: Balwinder Nam M.D. 07/16/2021 7:55 AM Neck CTA 07/15/21 23:56 HEAD & NECK CTA HISTORY: Left-sided weakness. Stroke Like Symptoms TECHNIQUE: Multiaxial CT images of the head were performed following the intravenous administration of contrast to evaluate the major cerebral vessels. Multiaxial CT images of the neck were also performed following the intravenous administration of contrast to evaluate the major cervical vessels. Maximum intensity projection images were also obtained. A dose lowering technique was utilized adhering to the principles of ALARA. COMPARISON: None. FINDINGS: The major dural venous sinuses appear patent. 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 Mild multifocal stenosis within the intracranial internal carotid arteries due to the calcified plaque. Mild multifocal stenosis seen within the left JENNIFER and proximal right MCA. The distal vertebral arteries and basilar artery are patent. No occlusion or aneurysm identified within the [place]. Moderate calcified plaque within the aortic arch. There is mild focal narrowing of approximately 30% at the takeoff of the left subclavian artery. There is also mild focal stenosis of approximately 30-50% within the proximal right subclavian artery. Bilateral common carotid arteries and vertebral arteries are patent. Mild calcified plaque within the bilateral carotid bifurcations. The left in ternal carotid artery is widely patent. There is a focal intimal flap within the proximal right internal carotid artery suggesting a chronic dissection. Remaining mid to distal right internal carotid artery is widely patent.. There is 1.2 cm right thyroid nodule. This does not meet CT criteria for follow-up. IMPRESSION: 1. No significant occlusion or aneurysm within the [place]. 2. 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 3. Mild multifocal stenosis within the left JENNIFER and proximal right MCA. 4. Focal intimal flap within the proximal right internal carotid artery suggesting a chronic dissection. 5. No high-grade stenosis or occlusion within the bilateral carotid or vertebral arteries. 6. Additional findings as described above. ACT 112: Negative or not required by law. Electronically signed by: Balwinder Nam M.D. 07/16/2021 7:55 AM Brain MRI 07/16/21 02:47 MRI OF THE BRAIN WITHOUT AND WITH IV CONTRAST CLINICAL HISTORY: stroke, L side weakness COMPARISON STUDY: MRI of the brain March 13, 2008. Head CT and CTA of the head July 16, 2021. TECHNIQUE: Utilizing a 1.5 Regina magnet and dedicated coil, multiplanar, multiecho imaging of the brain was performed pre and postcontrast administration. IV administration of 5.5 mL of Gadavist contrast was uneventful. FINDINGS: There is a 1.6 x 0.6 cm focus of restricted diffusion within the lateral right thalamus/posterior limb of the right internal capsule. This represents an acute infarct. There is no mass effect. There is no hemorrhage. Old lacunar infarcts within the bilateral basal ganglia are noted. There is an old left frontal lobe infarct. Mild ventricular dilatation is due to atrophy. Basal cisterns are patent. There are no extra-axial collections. White matter T2 hyperintense foci are present. There is no intracranial mass or pathologic enhancement. There is ossification along the falx. Calvarial signal is normal. IMPRESSION: 1. 1.6 x 0.6 cm acute infarct within the lateral right thalamus/posterior limb of the right internal capsule. No acute hemorrhage. No mass effect. 2. Old left frontal lobe infarct. Multiple old lacunar infarcts within the bilateral basal ganglia. ACT 112: Negative or not required by law. Electronically signed by: Dawit Sorto M.D. 07/16/2021 7:17 AM Resident Activity Tracking Resident Involvement: Resident Care Provided Care Provided: [facility]
[2021-07-16] MEDS ORDERED: Albuterol HFA 8 GM Inhaler (Combivent Respimat P&T Subs) INH SCH (07:00)
[2021-07-16] MEDS ORDERED: Ipratropium HFA Inhaler (Combivent Respimat P&T Subs) INH SCH (07:00)
--- NOTE | 2021-07-16 07:18 | Magnetic Resonance Report ---
MRI OF THE BRAIN WITHOUT AND WITH IV CONTRAST CLINICAL HISTORY: stroke, L side weakness COMPARISON STUDY: MRI of the brain March 13, 2008. Head CT and CTA of the head July 16, 2021. TECHNIQUE: Utilizing a 1.5 Regina magnet and dedicated coil, multiplanar, multiecho imaging of the br ain was performed pre and postcontrast administration. IV administration of 5.5 mL of Gadavist contr ast was uneventful. FINDINGS: There is a 1.6 x 0.6 cm focus of restricted diffusion within the lateral right thalamus/pos terior limb of the right internal capsule. This represents an acute infarct. There is no mass effect. There is no hemorrhage. Old lacunar infarcts within the bilateral basal ganglia are noted. There is an old left frontal lobe infarct. Mild ventricular dilatation is due to atrophy. Basal cisterns are p atent. There are no extra-axial collections. White matter T2 hyperintense foci are present. There is no intracranial mass or pathologic enhancement. There is ossification along the falx. Calvarial signa l is normal. IMPRESSION: 1. 1.6 x 0.6 cm acute infarct within the lateral right thalamus/posterior limb of the right internal capsule. No acute hemorrhage. No mass effect. 2. Old left frontal lobe infarct. Multiple old lacunar infarcts within the bilateral basal ganglia. ACT 112: Negative or not required by law. Electronically signed by: Dawit Sorto M.D. 07/16/2021 7:17 AM
[2021-07-16] MEDS: INSULIN ASPART 100 UNITS/ML 3 ML PEN SC SCH ×4 (07:46→20:45)
--- NOTE | 2021-07-16 07:57 | CT Scan Report ---
HEAD & NECK CTA HISTORY: Left-sided weakness. Stroke Like Symptoms TECHNIQUE: Multiaxial CT images of the head were performed following the intravenous administration o f contrast to evaluate the major cerebral vessels. Multiaxial CT images of the neck were also perform ed following the intravenous administration of contrast to evaluate the major cervical vessels. Maxim um intensity projection images were also obtained. A dose lowering technique was utilized adhering to the principles of ALARA. COMPARISON: None. FINDINGS: The major dural venous sinuses appear patent. A 1.5 cm arteriovenous malformation at the right cerebe llopontine angle with associated deep draining vein. Mild multifocal stenosis within the intracranial internal carotid arteries due to the calcified plaque. Mild multifocal stenosis seen within the left JENNIFER and proximal right MCA. The distal vertebral arteries and basilar artery are patent. No occlusio n or aneurysm identified within the [place]. Moderate calcified plaque within the aortic arch. There is mild focal narrowing of approximately 30% at the takeoff of the left subclavian artery. There is also mild focal stenosis of approximately 30- 50% within the proximal right subclavian artery. Bilateral common carotid arteries and vertebral rosendo mei are patent. Mild calcified plaque within the bilateral carotid bifurcations. The left internal c arotid artery is widely patent. There is a focal intimal flap within the proximal right internal flores tid artery suggesting a chronic dissection. Remaining mid to distal right internal carotid artery is widely patent.. There is 1.2 cm right thyroid nodule. This does not meet CT criteria for follow-up. IMPRESSION: 1. No significant occlusion or aneurysm within the [place]. 2. 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 3. Mild multifocal stenosis within the left JENNIFER and proximal right MCA. 4. Focal intimal flap within the proximal right internal carotid artery suggesting a chronic dissecti on. 5. No high-grade stenosis or occlusion within the bilateral carotid or vertebral arteries. 6. Additional findings as described above. ACT 112: Negative or not required by law. Electronically signed by: Balwinder Nam M.D. 07/16/2021 7:55 AM
--- NOTE | 2021-07-16 07:59 | CT Scan Report ---
HEAD CT NONCONTRAST CT DOSE: HISTORY: Left-sided weakness. Stroke Like Symptoms TECHNIQUE: Multiaxial CT images of the head were performed without the use of intravenous contrast. A utomated exposure control was utilized for this study. A dose lowering technique was utilized adheri ng to the principles of ALARA. Comparison: None. Findings: The paranasal sinuses and mastoid air cells are clear. The calvarium and skull base are int act. There is no mass, hematoma, midline shift.. White matter hypodensity is nonspecific but suggesti ve of microvascular ischemic change. The ventricles and sulci demonstrate mild age-related involution al changes. Age-indeterminate lacunar infarct within the right thalamus. Old lacunar infarcts within the right basal ganglia and left frontal lobe. Impression: 1. Age-indeterminate lacunar infarct within the right thalamus. 2. Mild atrophy and microvascular ischemic changes are noted. 3. No intracranial hemorrhage. ACT 112: Negative or not required by law. Electronically signed by: Balwinder Nam M.D. 07/16/2021 7:57 AM
--- NOTE | 2021-07-16 08:00 | Neurology Consultation ---
Date of Consultation July 16, 2021 Assessment & Plan (1) Acute CVA (cerebrovascular accident): (2) Hypertension: (3) Diabetic neuropathy: patient had a relatively small, acute right hemispheric stroke in the junction between the basal ganglia and thalamus. The size is not very big but her deficits are significant with severe dysarthria and a left hemiplegia including face arm and leg. Her right side is mildly weak but I think this is chronic. She has an underlying polyneuropathy likely due to diabetes. Other risk factors for stroke include chronic lifelong cigarette smoking and she was significantly hypertensive on admission. her blood pressure remains high today at 177/96. He was already on Coumadin for a history of pulmonary embolus. this type of anticoagulation does not prevent small vessel ischemic disease, of which she is at high risk. Recommendations: 1. initiate 81 milligram aspirin tablet daily in addition to the Coumadin. 2. Awaiting echocardiogram results. 3. Awaiting lipid profile and hemoglobin A1c. consider statin and she would be a high dose statin candidate. 4. Discontinue cigarette smoking. 5. Control blood pressure, aiming for a mean arterial pressure of approximately 100. 6. increase activity as able and update speech, Physical, and Occupational therapy consult. Overall, I spent a total of 100 minutes with this case including review of records, review of CT and MRI films, direct evaluation the patient bedside, and discussion of the case with the patient and RN at bedside, and Dr. Gonzalez, including differential diagnosis and treatment options. History of Present Illness Reason for Consultation: Patient is a 71-year-old, who I was asked to see at the request of Dr. Martin, for neurologic consultation regarding stroke. Requesting Physician: Dr. Martin Attending Physician: Raul Gonzalez, History of Present Illness patient has a history of type 2 diabetes on metformin and COPD on no O2 and continues to smoke less than a pack of cigarettes per day. 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 Patient has been feeling a little bit weak and tired recently, but was in her usual state of health On July 15. Soon up to her bed in the evening because she was tired and was watching TV. Around 11 p.m. she tried to get out of bed because she had to go to the bathroom. She fell because she felt her legs were weak. came upstairs because he heard the fall, noticed that she was weak and had slurred speech and called the ambulance. She arrived to the emergency room just before midnight and a CT scan of the head showed no bleed. There was old basal ganglia and frontal strokes. 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 At 0009 on July 16, blood pressure was 172/135, temperature 36.6, pulse 92 and regular, respiratory rate 18, and O2 saturation 99 percent. She was awake and alert but had significant dysarthria and left-sided weakness. CBC was unremarkable and CMP showed a glucose of 138. MRI of the brain revealed a relatively small right basal ganglia/thalamic area stroke with acute nature. There were old small infarcts and generalized atrophy. This morning patient feels little better although she has some low back pain and some pain across her. She does not have any dizziness Or headache, and knows that her left side is weak but she kind of feels weak in general also. Allergies Allergy/AdvReac Type Severity Reaction Status Date / Time Sulfa (Sulfonamide Allergy Severe RASH, Verified 07/16/21 00:28 Antibiotics) SHORTNESS OF BREATH bacitracin Allergy Intermediate facial Verified 07/16/21 00:28 swelling and erythema Home Medications Medication Instructions Recorded Confirmed Type ibuprofen 200 mg tablet (Advil) 200 mg PO Q6H PRN 07/16/21 07/16/21 History ipratropium 20 mcg-albuterol 100 1 puff INHALATION QID 07/16/21 07/16/21 History mcg/actuation mist for inhalation (Combivent Respimat) metformin 1,000 mg tablet 1,000 mg PO DAILY 07/16/21 07/16/21 History warfarin 1 mg tablet 1 mg PO DAILY 07/16/21 07/16/21 History warfarin 5 mg tablet 5 mg PO DAILY 07/16/21 07/16/21 History Patient History Medical History COPD (chronic obstructive pulmonary disease) Diabetes Diabetic neuropathy Heart disease PE (pulmonary embolism) Surgical History S/P IVC filter Family History Mother , early 90s of leukemia Rheumatoid arthritis Leukemia Father , age 60 of a stroke Stroke Daughter Lupus Social History (Updated 07/16/21 @ 08:07 by Nolberto Stokes MD) Smoking Status: Current every day smoker Tobacco Type: Cigarettes Age Started Using Tobacco: 12; Cigarettes Per Day: 15; Do You Dip or Chew Tobacco: No; Tobacco Cessation Education Requested by Patient: Yes Hx Alcohol Use: No Hx Substance Use: No Preferred Language: Georgian Communication Ability: Effective Supervisor Hospitality House Required: No Beliefs That Will Affect Care: None Current Living Situation: Spouse current occupational status: retired 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[place] ) Other Information That Helps Us Care for You: No Feels Safe at Home: Yes Safety Concerns: Feels Safe At This Time Assistive Devices: Glasses Review of Systems Constitutional: + fatigue and + weakness; no fever Eyes: no diplopia, no eye pain and no worsening vision Ear, Nose, Mouth, Throat: no ear pain, no tinnitus, no hearing loss, no dizziness, no hoarseness and no dysphagia Respiratory: no cough and no dyspnea Cardiovascular: no chest pain, no palpitations and no lightheadedness Gastrointestinal: + abdominal pain; no nausea and no vomiting Genitourinary: no dysuria, no urinary frequency and no urinary incontinence Musculoskeletal: + back pain; no neck pain, no radicular pain, no joint pain and no myalgia Integumentary: no rash and no lesions Neurologic: + localized weakness, + generalized weakness and + abnormal speech; no gait abnormality, no tingling, no numbness, no tremor(s), no abnormal movements, no headache(s), no confusion and no memory loss Psychiatric: no depression, no irritability, no anxiety, no difficulty concentrating, no confusion and no hallucinations Endocrine: no fatigue and no flushing Hematologic / Lymphatic: no easy bleeding and no easy bruising Allergy / Immunological: no urticaria and no problem reported Exam (Neuro) Physical Exam: The patient is left-handed. The patient is awake, alert, and attentive. Speech is very dysarthric, without any obvious aphasia. The patient can name objects, repeat phrases, and has normal spontaneous speech. Mentation and thought processes are intact, with orientation to person, place and time, and normal fund of knowledge. Attention and concentration are normal. Mood and affect are normal and appropriate. General appearance and grooming are normal. Short and long-term memory seem intact to conversation. The discs are sharp with positive venous pulsations bilaterally. There are no exudates, hemorrhages, or blood vessel changes seen. Pupils are 4 mm bilaterally and reactive to light. Extraocular eye muscles are intact without nystagmus. Visual acuity and visual maxwell seem normal grossly to confrontation. There are no deficits to sensation in the face in all 3 distributions of the fifth cranial nerve bilaterally. Corneal reflexes are positive bilaterally. There is a dense facial droop on the left. There is good forehead and eye closure movement on the left. Hearing seems normal bilaterally. Palate moves well without asymmetry. There is normal sternocleidomastoid and trapezius (shoulder shrug) strength bilaterally. Tongue is midline with good strength bilaterally. Neck has a full range of motion without discomfort. There are no cervical bruits bilaterally. There are no cranial or ocular bruits. Heart is without murmur. There is a regular rhythm and rate. Cervical, thoracic, and lumbar spine are nontender to palpation. Gait was not tested and stance sitting up in bed is poor because of weakness With outstretched arm there is no drift on the right. There are no resting, postural, or action tremors on the right. There is no ataxia with finger to nose testing on the right. There is reasonable facility in the right hand. No other abnormal involuntary movements are noted. Motor strength is 4/5 diffusely in the right arm and leg both proximally and distally. Left arm and leg are flaccid (0/5). She has a little proximal in hip and shoulder. The limbs have good tone without rigidity or spasticity On the right. the left arm and leg decreased in Tone. There is no atrophy noted in the muscles. Muscle bulk is normal, there is no tenderness to palpation, no myotonia to percussion, and no fasciculations seen. Sensory examination Reveals some decreased pinprick distally in the feet she does withdrawal to pain. Reflexes are 0/4 in the biceps, triceps, brachioradialis, quadriceps, and Achilles tendons bilaterally. There is no clonus bilaterally. Toes are downgoing with plantar stimulation On the right and upgoing to plantar stimulation on the left. Peripheral pulses are present and of normal quality distally in all 4 limbs. There is no peripheral edema noted in the limbs. Results & Data ([facility]) Vital Signs (Past 12 Hours) Vital Signs Temp Pulse Pulse Resp BP BP BP 07/16/21 06:53 83 17 177/96 H 07/16/21 06:23 97 H 20 156/99 H 07/16/21 05:53 98 H 15 166/80 H 07/16/21 05:23 93 H 15 165/99 H 07/16/21 04:53 90 17 126/85 07/16/21 04:23 87 19 147/97 H 07/16/21 03:53 36.7 C 78 21 181/87 H 07/16/21 03:38 82 18 179/82 H 07/16/21 03:23 80 18 178/68 H 07/16/21 03:08 81 16 178/71 H 07/16/21 02:53 85 18 179/72 H 07/16/21 02:51 83 16 178/85 H 07/16/21 02:36 89 20 173/99 H 07/16/21 02:21 90 16 111/91 07/16/21 02:06 89 20 164/98 H 07/16/21 01:51 85 16 147/67 H 07/16/21 00:38 88 18 150/68 H 07/16/21 00:09 36.6 C 92 H 18 172/135 H Pulse Ox 07/16/21 06:53 100 07/16/21 06:23 100 07/16/21 05:53 95 07/16/21 05:23 96 07/16/21 04:53 95 07/16/21 04:23 95 07/16/21 03:53 94 07/16/21 03:38 98 07/16/21 03:23 97 07/16/21 03:08 96 07/16/21 02:53 96 07/16/21 02:51 97 07/16/21 02:36 96 07/16/21 02:21 99 07/16/21 02:06 95 07/16/21 01:51 95 07/16/21 00:38 94 07/16/21 00:09 99 PG Care Time/CCT Total # of Minutes Spent Total Time Spent with Patient: Total time spent is greater than 50% in coordination of care (as documented) at patient's floor/unit and/or counseling patient: Coding Level of Care Code 54872 Initial Inpt Care Lvl 3 Diagnoses Acute CVA (cerebrovascular accident) I63.9 Hypertension I10 Diabetic neuropathy E11.40 Time Spent (min) 100 Comment Add modifiers as able
[2021-07-16] MEDS ORDERED: IPRATROPIUM BROMIDE/ALBUTEROL respimat INH INH SCH (09:00)
[2021-07-16] MEDS ORDERED: ALBUTEROL HFA 8 GM INHALER INH PRN (09:59)
[2021-07-16] MEDS ORDERED: IPRATROPIUM BROMIDE HFA INHALER INH PRN (10:00)
--- NOTE | 2021-07-16 10:54 | XRay Report ---
XR chest 1V portable CLINICAL HISTORY: Stroke Like Symptoms COMPARISON STUDY: Chest radiograph and chest CT July 28, 2018. FINDINGS: Lung volumes are normal. Lungs are clear. There is no pneumothorax or pleural effusion. Car diac size is normal. Mediastinal contours are normal. There is no evidence for pulmonary edema. IMPRESSION: No acute cardiopulmonary findings. ACT 112: Negative or not required by law. Electronically signed by: Dawit Sorto M.D. 07/16/2021 10:53 AM
--- NOTE | 2021-07-16 12:19 | XCELERA ---
[id number] \\[id number]
--- NOTE | 2021-07-16 12:28 | Electrocardiogram Report ---
Test Reason : Blood Pressure : / mmHG Vent. Rate : 086 BPM Atrial Rate : 086 BPM P-R Int : 160 ms QRS Dur : 064 ms QT Int : 392 ms P-R-T Axes : 087 071 079 degrees QTc Int : 469 ms Poor data quality, interpretation may be adversely affected Sinus rhythm with marked sinus arrhythmia Nonspecific ST abnormality Otherwise normal ECG When compared with ECG of 28-SEP-2017 21:29, Nonspecific T wave abnormality now evident in Anterior leads Confirmed by Marshall Armenta ([id number]) on 07/16/2021 12:28:21 PM Referred By: REFERRED SELF Confirmed By:Jelani Armenta
[2021-07-16] MEDS: ACETAMINOPHEN 500 MG TAB PO PRN (14:16)
[2021-07-16] MEDS ORDERED: Nursing to Pharmacy Communication SCH (15:15)
[2021-07-16] MEDS: POLYETHYLENE (MIRALAX) 17 GM PACK PO SCH (17:45)
--- NOTE | 2021-07-16 20:32 | Billing Data ---
Date of Service July 16, 2021 Coding Level of Care Code Critical Care 1st - mins
[2021-07-17 06:05] LABS: Chol HDL Ratio 5; Cholesterol 172 mg/dl (0-200); HDL Cholesterol 36 mg/dl; LDL Cholesterol Calculated 116 mg/dl; Triglycerides 102 mg/dl (0-150); VLDL Cholesterol 20 mg/dl
--- NOTE | 2021-07-17 06:41 | CT Scan Report ---
CT head/brain wo con CLINICAL HISTORY: 71 years-old Female with 24 hour screen post tenecteplase. Acute strokelike sympto ms TECHNIQUE: Multiple axial CT images of the head were obtained without contrast. A dose lowering tech nique was utilized adhering to the principles of ALARA. CT DOSE: 918.38 mGy.cm COMPARISON: Head CT 07/16/2021, brain MRI 07/16/2021 FINDINGS: No acute intracranial hemorrhage, midline shift, intracranial mass, hydrocephalus, or abnormal extra- axial collection. Acute infarct measuring approximately 1.6 cm within the right thalamus/posterior li mb of the right internal capsule is redemonstrated and demonstrates slightly increased amount of cyto toxic edema. Chronic lacunar infarcts of the basal ganglia with chronic infarct of the left frontal l obe.. Age-related involutional changes. Chronic microvascular ischemic disease. The calvarium is intact. The paranasal sinuses, mastoid air cells, and middle ear cavities are clear . IMPRESSION: 1.6 cm acute infarct of the right thalamus and posterior limb of the right internal caps ule redemonstrated. No acute intracranial hemorrhage. ACT 112: Negative or not required by law. The above report was generated using voice recognition software. It may contain grammatical, syntax o r spelling errors. Electronically signed by: Chele Marie M.D. 07/17/2021 6:40 AM
[2021-07-17 06:45] LABS: Estimated Average Glucose 157 mg/dl; Hemoglobin A1C 7.1 % (4.5-5.6)
--- NOTE | 2021-07-17 07:32 | Neurology Progress Note ---
Date of Service July 17, 2021 Assessment & Plan (1) Acute CVA (cerebrovascular accident): (2) Hypertension: (3) Diabetic neuropathy: Plan: The patient had a relatively small sized acute right hemispheric stroke in the junction between the basal ganglia and thalamus. Although the stroke size is not very big, her deficits are significant, with severe dysarthria and a left hemiplegia including face arm and leg. Today, I believe she has mildly improved dysarthria and is starting to slight movements of the left arm leg. Left facial droop is a little bit better as well. Her right side is mildly weak but I think this is chronic. She has an underlying polyneuropathy, likely due to diabetes. Other risk factors for stroke include chronic lifelong cigarette smoking and she was significantly hypertensive on admission. her blood pressure remains high tod at 177/96. He was already on Coumadin for a history of pulmonary embolus. this type of anticoagulation does not prevent small vessel ischemic disease, of which she is at high risk. Recommendations: 1. initiate 81 milligram aspirin tablet daily in addition to the Coumadin. 2. Consider statin and she would be a high dose statin candidate. 3. Discontinue cigarette smoking. 4. Control blood pressure, aiming for a mean arterial pressure of approximately 100. 5. increase activity as able and update speech, Physical, and Occupational therapy consult. Overall, I spent a total of 35 minutes with this case including review of records, direct evaluation the patient bedside, and discussion of the case with the patient and RN at bedside, and Dr. Gonzalez, including differential pardeep gnosis and treatment options. Admission and Anticipated Discharge Date Admission Date: July 16, 2021 Subjective Patient feels a little bit better today. She is without pain or dizziness. Results & Data ([facility]) Vital Signs (Past 12 Hours) Vital Signs Temp Pulse Pulse Resp BP BP Pulse Ox 07/17/21 06:00 95 H 18 149/77 H 97 07/17/21 05:00 75 14 154/59 H 100 07/17/21 04:00 36.6 C 70 12 116/77 100 07/17/21 03:00 94 H 12 140/66 99 07/17/21 01:53 81 20 128/71 100 07/17/21 00:53 82 20 109/63 99 07/16/21 23:53 36.4 C L 82 16 146/96 H 97 07/16/21 22:53 88 20 162/101 H 100 07/16/21 21:53 96 H 20 139/80 100 07/16/21 20:53 84 16 107/71 100 07/16/21 19:53 36.4 C L 97 H 16 116/66 100 Exam (Neuro) Physical Exam: She is awake and alert. Speech has dysarthria but no motor or receptive aphasia. I believe her dysarthria is a little bit improved compared to yesterday. mood and affect are normal and appropriate. Left face has some movement now at the corner of the mouth that was not present yesterday. She has some slight movements occasionally of the left hand and left leg that were not present yesterday our other. Tone is still decreased. The left toes are upgoing plantar stimulation Blood pressure is 149/77. Hemoglobin A1c was 7.1 and triglycerides 102. Total cholesterol 172. Echocardiogram showed severe left ventricular hypertrophy without shot. Ventric ular function is reasonable. PG Care Time/CCT Total # of Minutes Spent Total Time Spent with Patient: Total time spent is greater than 50% in coordination of care (as documented) at patient's floor/unit and/or counseling patient: Coding Level of Care Code 03474 Subseq Hosp Care Lvl 3 Diagnoses Acute CVA (cerebrovascular accident) I63.9 Hypertension I10 Hypertension type: unspecified Diabetic neuropathy E11.40 (1) Hypertension Hypertension type: unspecified Qualified Code(s): I10 - Essential (primary) hypertension
[2021-07-17] MEDS: INSULIN ASPART 100 UNITS/ML 3 ML PEN SC SCH ×4 (07:47→21:30)
--- NOTE | 2021-07-17 07:55 | Hospitalist Progress Note ---
Date of Service July 17, 2021 Assessment & Plan (1) Stroke: Plan: Patient is a 71 year old female with PMHx Pulmonary Embolism x6, COPD, DM2, suspected anticoagulation disorder, who presents after sustaining 2 falls overnight in addition to L sided weakness, L sided facial droop, and slurred speech with last known well at 11PM. Stable. Stroke -Patient with last known well 11PM on 07/05/21 presenting with falls, LUE and LLE weakness, L sided facial droop, and slurred speech -CT head stat read with "no acute intracranial hemorrhage or mass effect and no CT evidence of acute territorial infarct." Imaging does note chronic lacunar in farct at the R basal ganglion and possibly at the L arely in addition to small chronic infarct in the L frontal operculum. 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 No evidence of hemodynamically significant stenosis or vessel occlusion. -Teleneurology was consulted who discussed with patient the risks and benefits of TNKase therapy to which patient agreed it would be beneficial -As patient received TNKase, will repeat CT head in 24 hours to monitor for bleed and monitor in ICU -MRI brain: 1. 1.6 x 0.6 cm acute infarct within the lateral right thalamus/posterior limb of the right internal capsule. No acute hemorrhage. No mass effect. 2. Old left frontal lobe infarct. Multiple old lacunar infarcts within the bilateral basal ganglia. -Repeat head CT 24 hours later is w/o hemorrhage. shows the above stroke. -TTE: EF 65-70. Severe concentric LVH. -Labetalol 10mg q15m PRN for SBP >180 or DBP >105 for status post TNKase, will extend these goals for 48 hours post stroke -Starting baby ASA 24 hrs post TNKase. High dose statin after 48 hours -Delay starting oral anticoagulation (considering DOAC) ~1wk+ -TG102, chol 172, ldl 116, hdl 36. A1c 7.1 -Passed speech/swallow -Neurology consulted, recs appreciated COPD -Continue home Combivent. Albuterol QIDR PRN. Hx PE -Suspect some anticoagulation disorder due to patient's history and daughter with clotting disorder -Had been taking her Warfarin 6mg daily, however, INR on admission was 1 -Will hold on anticoagulation workup on admission as patient had received TNKase and unsure of how it would skew results -Patient may benefit more from a novel anticoagulant vs. warfarin dosage adjustment prior to discharge DM2 -Hold home metformin -Monitor sugars, SSI or basal bolus additions as needed Dispo: med/surg tele s/p FEN: HH, DM2, easy to chew. No IV fluids. Miralax for bowel regimen DVT: therapeutic anticoag contraindicated at this time. baby ASA+SCDs Code: Full Admission and Anticipated Discharge Date Admission Date: July 16, 2021 Supervising Physician Co-Signing Physician Notes I personally examined the patient and verified all simons points of history and exam, discussed case, and agree with decision making with Dr Stearns. Speech a little better, the rest of her weakness is about the same. No new complaints otherwise. In general she is awake and alert pleasant fatigued no distress. HEENT normocephalic atraumatic mucous membranes moist. Breathing unlabored no accessory muscle use good effort. Skin shows no rashes no pallor or icterus. Neuro with diffuse left-sided weakness (to clarify yesterday I accidentally said rightmeant left) and while she still has some slurred speech, fortunately it is improving. Strokeappears to be intracranial atherosclerosis related to lipids, diabetes, smoking, possibly hypertensionpost thrombolysiscurrently per protocol.Can start aspirin today, likely Lipitor tomorrow, A1c 7.1, encouraged smoke cessation. PT/OT eval and treat. Appears most likely she would be ready for rehab by tomorrow Abdominal painappears most consistent with constipationMiraLAX. DVT prophylaxisjust had thrombolytics. Subjective Per patient, no new complaints this AM. No CP/SOB, GI symptoms. Tolerating meals. L side still weak. She feels there is improvement in her dysarthria. Main complaint is still fatigue. Review of Systems Review of Systems: Constitutional: Denies fever, chills Cardiovascular: Denies chest pain, Respiratory: See HPI Gastrointestinal: Denies abdominal pain, nausea, vomiting, constipation, diarrhea Genitourinary: Denies urinary symptoms including dysuria Musculoskeletal: See HPI Neurological: Denies headache, numbness, tingling, Physical Exam Physical Exam: General: Grossly A&O. NAD. Cooperative. HEENT: Atraumatic, normocephalic. EOMI. PERRL. Pulm: CTAB anteriorly. -wheezes, -rales, -rhonchi. No respiratory distress. Cardiac: RRR, -mrg. Abdominal: Nontender, nondistended, soft. Neuro: LUE, LLE, strength 0-1/5. Good tone. Shrugging bilat shoulders. Family [employer] Teacher strength on L is minimal. + dysarthria but no aphasia. Dysarthria improving. Left lower facial facial droop, improving. Other CN intact. Normal finger to nose on right. LUE and LLE strength unchanged from 07/16 exam. L hand and LLE w/ altered sensation Results & Data Results & Data ([facility]) Vital Signs (Past 12 Hours) Vital Signs 97 sat on room air. Temp Pulse Pulse Resp BP BP Pulse Ox 07/17/21 06:00 95 H 18 149/77 H 97 07/17/21 05:00 75 14 154/59 H 100 07/17/21 04:00 36.6 C 70 12 116/77 100 07/17/21 03:00 94 H 12 140/66 99 07/17/21 01:53 81 20 128/71 100 07/17/21 00:53 82 20 109/63 99 07/16/21 23:53 36.4 C L 82 16 146/96 H 97 07/16/21 22:53 88 20 162/101 H 100 07/16/21 21:53 96 H 20 139/80 100 07/16/21 20:53 84 16 107/71 100 Laboratory Results cbc stable. coag wnl. bmp stbl. k 3.6. cr .6. lipid panel w/ LDL 116, improved from 11/[address] 07/17/21 02:00 CT head/brain wo con CLINICAL HISTORY: 71 years-old Female with 24 hour screen post tenecteplase. Acute strokelike symptoms TECHNIQUE: Multiple axial CT images of the head were obtained without contrast. A dose lowering technique was utilized adhering to the principles of ALARA. CT DOSE: 918.38 mGy.cm COMPARISON: Head CT 07/16/2021, brain MRI 07/16/2021 FINDINGS: No acute intracranial hemorrhage, midline shift, intracranial mass, hydrocephalus, or abnormal extra-axial collection. Acute infarct measuring approximately 1.6 cm within the right thalamus/posterior limb of the right internal capsule is redemonstrated and demonstrates slightly increased amount of cytotoxic edema. Chronic lacunar infarcts of the basal ganglia with chronic infarct of the left frontal lobe.. Age-related involutional changes. Chronic microvascular ischemic disease. The calvarium is intact. The paranasal sinuses, mastoid air cells, and middle ear cavities are clear. IMPRESSION: 1.6 cm acute infarct of the right thalamus and posterior limb of the right internal capsule redemonstrated. No acute intracranial hemorrhage. ACT 112: Negative or not required by law. The above report was generated using voice recognition software. It may contain grammatical, syntax or spelling errors. Electronically signed by: Chele Marie M.D. 07/17/2021 6:40 AM Resident Activity Tracking Resident Involvement: Resident Care Provided Care Provided: Adult Hospital Medicine
[2021-07-17] MEDS: POLYETHYLENE (MIRALAX) 17 GM PACK PO SCH ×2 (08:09→22:01)
[2021-07-17 08:42] LABS: Basophils # (auto) 0.03 K/uL (0-0.2); Basophils % (auto) 0.4 %; Eosinophils # (auto) 0.13 K/uL (0-0.5); Eosinophils % (auto) 1.9 %; Hemoglobin 13.4 g/dL (12.0-16.0); Immature Granulocytes # (auto) 0.01 K/uL (0.00-0.02); Immature Granulocytes % (auto) 0.1 %; Lymphocytes # (auto) 2.36 K/uL (1.2-3.4); Mean Corpuscular Hemoglobin 31.2 pg (25-34); Mean Corpuscular Hgb Conc 32.7 g/dL (32-36); Mean Corpuscular Volume 95.3 fL (80-100); Mean Platelet Volume 10.4 fL (7.4-10.4); Monocytes # (auto) 0.57 K/uL (0.11-0.59); Monocytes % (auto) 8.5 %; Neutrophils # (auto) 3.64 K/uL (1.4-6.5); Neutrophils % (auto) 54.1 %; Platelet Count 231 K/uL (130-400); RDW Coefficient of Variation 13.4 % (11.5-14.5); RDW Standard Deviation 46.4 fL (36.4-46.3); White Blood Count 6.74 K/uL (4.8-10.8)
[2021-07-17 08:56] LABS: Partial Thromboplastin Ratio 0.9; Partial Thromboplastin Time 24.8 Seconds (21.0-31.0); Prothrombin Time 10.2 Seconds (9.0-12.0)
[2021-07-17 09:13] LABS: Albumin Globulin Ratio 0.9 (0.9-2); Albumin Level 3.5 gm/dl (3.4-5.0); BUN Creatinine Ratio 24.1 (10-20); Bilirubin,Total 0.8 mg/dl (0.2-1); Calcium 8.7 mg/dl (8.5-10.1); Creatinine Clr Calc Pharmacy 74.6 ml/min; Est GFR (African American) 104.8 ml/min; Est GFR (Non-African American) 90.4 ml/min; Globulin 3.8 gm/dl (2.5-4.0); Magnesium 2.1 mg/dl (1.8-2.4); Potassium 3.6 mmol/L (3.5-5.1); Total Protein 7.3 gm/dl (6.4-8.2)
[2021-07-17] MEDS ORDERED: POTASSIUM CHLORIDE 20 MEQ/15 ML UDC PO STA (16:34)
[2021-07-17] MEDS: ACETAMINOPHEN 500 MG TAB PO PRN (17:07)
--- NOTE | 2021-07-17 17:14 | Billing Data ---
Date of Service July 17, 2021 Coding Level of Care Code 71547 Subseq Hosp Care Lvl 3
[2021-07-17] MEDS: ASPIRIN 81 MG ECTAB PO SCH (17:32)
--- NOTE | 2021-07-18 06:56 | Hospitalist Progress Note ---
Date of Service July 18, 2021 Assessment & Plan (1) Stroke: Plan: Patient is a 71 year old female with PMHx Pulmonary Embolism x6, COPD, DM2, suspected anticoagulation disorder, who presents after sustaining 2 falls overnight in addition to L sided weakness, L sided facial droop, and slurred speech with last known well at 11PM. Stable. Stroke -Patient with last known well 11PM on 07/05/21 presenting with falls, LUE and LLE weakness, L sided facial droop, and slurred speech -CT head stat read with "no acute intracranial hemorrhage or mass effect and no CT evidence of acute territorial infarct." Imaging does note chronic lacunar in farct at the R basal ganglion and possibly at the L arely in addition to small chronic infarct in the L frontal operculum. 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 No evidence of hemodynamically significant stenosis or vessel occlusion. -Teleneurology was consulted who discussed with patient the risks and benefits of TNKase therapy to which patient agreed it would be beneficial -As patient received TNKase, will repeat CT head in 24 hours to monitor for bleed and monitor in ICU -MRI brain: 1. 1.6 x 0.6 cm acute infarct within the lateral right thalamus/posterior limb of the right internal capsule. No acute hemorrhage. No mass effect. 2. Old left frontal lobe infarct. Multiple old lacunar infarcts within the bilateral basal ganglia. -Repeat head CT 24 hours later is w/o hemorrhage. shows the above stroke. -TTE: EF 65-70. Severe concentric LVH. -Labetalol 10mg q15m PRN for SBP >180 or DBP >105 for status post TNKase, will extend these goals for 48 hours post stroke -Starting baby ASA 24 hrs post TNKase. Starting atorva 40 mg daily 48 hours post TNKase. -Delay starting oral anticoagulation (considering DOAC) ~1wk+ -TG102, chol 172, ldl 116, hdl 36. A1c 7.1 -Passed speech/swallow -Neurology consulted, recs appreciated COPD -Continue home PRN Combivent. Albuterol QIDR PRN. If still reporting dyspnea, will adjust regimen. Adding incentive spirometry. May have mild atelectasis per clinical exam. Hx PE -Suspect some anticoagulation disorder due to patient's history and daughter with clotting disorder -Had been taking her Warfarin 6mg daily, however, INR on admission was 1 -Will hold on anticoagulation workup on admission as patient had received TNKase and unsure of how it would skew results -Patient may benefit more from a novel anticoagulant vs. warfarin dosage adjustment prior to discharge DM2 -Hold home metformin -Monitor sugars, SSI or basal bolus additions as needed HypoK, repleting Dispo: med/surg tele FEN: HH, DM2, easy to chew. No IV fluids. Miralax for bowel regimen, increased to BID DVT: therapeutic anticoag contraindicated at this time. baby ASAx1+SCDs Code: Full Admission and Anticipated Discharge Date Admission Date: July 16, 2021 Supervising Physician Co-Signing Physician Notes I personally examined the patient and verified all simons points of history and exam, discussed case, and agree with decision making with Dr Stearns. Speech a little better, the rest of her weakness is about the same. Main complaint today is her fatigue. In general she is awake and alert pleasant, no distress. HEENT normocephalic atraumatic mucous membranes moist. Breathing unlabored no accessory muscle use good effort. Skin shows no rashes no pallor or icterus. Neuro with diffuse left-sided weakness (to clarify yesterday I accidentally said rightmeant left) and while she still has some slurred speech, fortunately it is improving. Strokeappears to be intracranial atherosclerosis related to lipids, diabetes, smoking, possibly hypertensionpost thrombolysiscurrently per protocol.Can start aspirin today, likely Lipitor tomorrow, A1c 7.1, encouraged smoke c essation. PT/OT eval and treat. Appears most likely she would be ready for rehab by tomorrow Ordered chest x ray on 07/18 Abdominal painappears most consistent with constipationMiraLAX. DVT prophylaxisjust had thrombolytics. Subjective Feeling slightly better than yesterday. Has fatigue still, slightly less. No cp, f/v, n/v/abd pain, urinary symptoms, CHANG. Has intermittent SOB. Intermittent blury vision, milder than before, can affect either eye. Mild SOB at rest. States for COPD, only took inhalers prn at home. No home O2. R arm feels slightly stronger. L side still weak. Speech improving. RUE feels a little stronger. Review of Systems Review of Systems: Constitutional: Denies fever, chills Cardiovascular: Denies chest pain Respiratory: See HPI Gastrointestinal: Denies abdominal pain, nausea, vomiting, constipation, diarrhea Genitourinary: Denies urinary symptoms including dysuria Musculoskeletal: See HPI Neurological: Denies headache Physical Exam Physical Exam: General: Grossly A&O. NAD. Cooperative. HEENT: Atraumatic, normocephalic. EOMI. PERRL. Pulm: CTAB anteriorly and laterally. Very faint crackles at R base. No respiratory distress. Cardiac: RRR, -mrg. Abdominal: Nontender, nondistended, soft. Neuro: LUE, LLE, strength 0-1/5. Good tone. Shrugging bilat shoulders, weaker on left. Historiography Professor strength on L is minimal. + dysarthria but no aphasia. Dysarthria improving. Left lower facial facial droop, improving. R lower face has altered sensation to touch, feels numb. Other CN intact. Normal finger to nose on right. LUE and LLE strength unchanged from 07/16- exams. L UE and LLE w/ altered sensation Results & Data Results & Data ([facility]) Vital Signs (Past 12 Hours) Vital Signs Intermittent tachycardia 101. 93-95 on room air. Temp Pulse Pulse Resp BP Pulse Ox 07/18/21 03:40 36.6 C 86 16 102/67 95 07/18/21 00:00 101 H 07/17/21 22:00 36.7 C 81 16 112/70 93 07/17/21 19:34 37 C 89 16 118/73 93 Laboratory Results cbc stable. bmp stable. K 3.6->3.6 Resident Activity Tracking Resident Involvement: Resident Care Provided Care Provided: Adult Hospital Medicine
[2021-07-18] MEDS: INSULIN ASPART 100 UNITS/ML 3 ML PEN SC SCH ×4 (08:16→22:24)
[2021-07-18 11:07] LABS: Basophils # (auto) 0.02 K/uL (0-0.2); Basophils % (auto) 0.3 %; Eosinophils # (auto) 0.07 K/uL (0-0.5); Hemoglobin 12.8 g/dL (12.0-16.0); Immature Granulocytes # (auto) 0.01 K/uL (0.00-0.02); Immature Granulocytes % (auto) 0.1 %; Lymphocytes # (auto) 1.63 K/uL (1.2-3.4); Lymphocytes % (auto) 23.8 %; Mean Corpuscular Hemoglobin 31.3 pg (25-34); Mean Corpuscular Hgb Conc 32.8 g/dL (32-36); Mean Corpuscular Volume 95.4 fL (80-100); Mean Platelet Volume 10.4 fL (7.4-10.4); Monocytes # (auto) 0.53 K/uL (0.11-0.59); Monocytes % (auto) 7.7 %; Neutrophils % (auto) 67.1 %; Platelet Count 225 K/uL (130-400); RDW Coefficient of Variation 13.4 % (11.5-14.5); RDW Standard Deviation 46.2 fL (36.4-46.3); Red Blood Count 4.09 M/uL (4.2-5.4); White Blood Count 6.86 K/uL (4.8-10.8)
[2021-07-18 11:33] LABS: BUN Creatinine Ratio 24.1 (10-20); Calcium 8.8 mg/dl (8.5-10.1); Creatinine Clr Calc Pharmacy 74.5 ml/min; Est GFR (African American) 103.1 ml/min; Potassium 3.6 mmol/L (3.5-5.1)
[2021-07-18] MEDS ORDERED: POTASSIUM CHLORIDE 20 MEQ/15 ML UDC PO STA (12:17)
[2021-07-18] MEDS: ASPIRIN 81 MG ECTAB PO SCH (17:05)
--- NOTE | 2021-07-18 17:49 | XRay Report ---
SINGLE VIEW CHEST CLINICAL HISTORY: Dyspnea. FINDINGS: An AP, portable, upright chest radiograph is compared to study dated 07/16/2021 and correla claribel with chest CT dated 09/28/2017. The examination is degraded by portable technique and patient rotat ion. The cardiomediastinal silhouette is unremarkable noting atherosclerotic calcification of the tho racic aorta. Chronic interstitial thickening is similar to previous. There is mild bibasilar atelecta sis. The lungs and pleural spaces are otherwise clear. No pneumothorax is seen. The skeletal structur es are osteopenic. The bony thorax is grossly intact. Surgical clips project over the right lower varsha st. IMPRESSION: No active disease in the chest. ACT 112: Negative or not required by law. Electronically signed by: Elmer Mancera M.D. 07/18/2021 5:48 PM
[2021-07-18] MEDS: ACETAMINOPHEN 500 MG TAB PO PRN (19:51)
[2021-07-18] MEDS: ATORVASTATIN 40 MG TAB PO SCH (21:51)
[2021-07-18] MEDS: POLYETHYLENE (MIRALAX) 17 GM PACK PO SCH (21:51)
[2021-07-19 08:16] LABS: Basophils # (auto) 0.01 K/uL (0-0.2); Basophils % (auto) 0.2 %; Eosinophils % (auto) 1.6 %; Hematocrit (blood only) 38.2 % (37-47); Hemoglobin 12.4 g/dL (12.0-16.0); Immature Granulocytes # (auto) 0.02 K/uL (0.00-0.02); Immature Granulocytes % (auto) 0.3 %; Lymphocytes # (auto) 1.98 K/uL (1.2-3.4); Lymphocytes % (auto) 31.4 %; Mean Corpuscular Hemoglobin 30.8 pg (25-34); Mean Corpuscular Hgb Conc 32.5 g/dL (32-36); Mean Platelet Volume 11.1 fL (7.4-10.4); Monocytes # (auto) 0.61 K/uL (0.11-0.59); Monocytes % (auto) 9.7 %; Neutrophils # (auto) 3.58 K/uL (1.4-6.5); Neutrophils % (auto) 56.8 %; Platelet Count 222 K/uL (130-400); RDW Coefficient of Variation 13.4 % (11.5-14.5); RDW Standard Deviation 46.4 fL (36.4-46.3); Red Blood Count 4.02 M/uL (4.2-5.4)
[2021-07-19] MEDS: POLYETHYLENE (MIRALAX) 17 GM PACK PO SCH ×2 (08:26→21:14)
[2021-07-19] MEDS: INSULIN ASPART 100 UNITS/ML 3 ML PEN SC SCH ×4 (08:27→21:54)
[2021-07-19 09:03] LABS: BUN Creatinine Ratio 31.8 (10-20); Calcium 8.9 mg/dl (8.5-10.1); Creatinine Clr Calc Pharmacy 80.9 ml/min; Est GFR (Non-African American) 91.4 ml/min; Potassium 4.3 mmol/L (3.5-5.1)
--- NOTE | 2021-07-19 10:48 | Hospitalist Progress Note ---
Date of Service July 19, 2021 Assessment & Plan (1) Stroke: Plan: Patient is a 71 year old female with PMHx Pulmonary Embolism x6, COPD, DM2, suspected anticoagulation disorder, who presents after sustaining 2 falls overnight in addition to L sided weakness, L sided facial droop, and slurred speech with last known well at 11PM. Stable. Right-sided CVA MRI brain showed acute infarct in the lateral right thalamus/posterior limb of the right internal capsule in addition to old left frontal lobe infarct and multiple old lacunar infarcts within the bilateral basal ganglia --> likely due to intracerebral atherosclerotic disease. - S/p TNKase on 07/16, No s/s bleeding/hemorrhage - dysarthria improved and left-sided hemiplegia only mildly improved - continue baby Aspirin - Delay initiation of oral anticoagulation (home Warfarin vs DOAC) at least 4 days s/p TNKase (07/20 at earliest) - continue Atorvastatin 40mg PO QHS - Neurology on board - appreciate recs Constipation No BM for >4 days, with mild lower abdominal tenderness. - continue Miralax BID - added Senokot today COPD - Continue home inhalers History of PE Appears that PE occurred >3 years ago; unknown if provoked or not. Patient's daughter has clotting disorder, although unknown if the patient herself had hypercoagulability testing. - Had been taking her Warfarin 6mg daily before admission; however, INR on admission was 1 - Will hold on anticoagulation workup on admission as patient had received TNKase and unsure of how it would skew results - consider initiation of Warfarin vs DOAC at later time, as stated above DM2 - Hold home metformin - continue SSI and AC/HS monitoring Dispo: med/surg with tele, pending placement at rehab ([facility] referral made) FEN/GI: HH, DM2, easy to chew. DVT: chemoppx contraindicated at this time (until at least 07/20). Continue ASA + SCDs Code: Full Admission and Anticipated Discharge Date Admission Date: July 16, 2021 Supervising Physician Co-Signing Physician Notes I personally examined the patient and verified all simons points of history and exam, discussed case, and agree with decision making with Dr Stearns. Speech a little better, the rest of her weakness is about the same. No new complaints today. In general she is awake and alert pleasant, no distress. HEENT normocephalic atraumatic mucous membranes moist. Breathing unlabored no accessory muscle use good effort. Skin shows no rashes no pallor or icterus. Neuro with diffuse left-sided weakness. Improved speech. Strokeappears to be intracranial atherosclerosis related to lipids, diabetes, smoking, possibly hypertensionpost thrombolysiscurrently per protocol.Can start aspirin today, likely Lipitor tomorrow, A1c 7.1, encouraged smoke cessation. PT/OT eval and treat. Appears most likely she would be ready for rehab ;Awaiting placement. Ordered chest x ray on 07/18: negative. Abdominal painappears most consistent with constipationMiraLAX. DVT prophylaxisjust had thrombolytics. Subjective No acute events overnight. Patient reports still having significant dysarthria although improved since yesterday. Still has hemiplegia (face/UE/LE) that is largely unchanged. Reports mild lower abdominal bloating/pain and has not had a BM for >4 days. Sometimes gets constipated at home. Review of Systems Review of Systems: Denies fever/chills, chest pain, palpitations, SOB, cough, N/V, rash. Physical Exam Physical Exam: General: A&Ox3. NAD. Cooperative. HEENT: Atraumatic, normocephalic. Pulm: CTAB A&P. -wheezes, -rales, -rhonchi. Symmetrical chest rise. No increase work of breathing. No respiratory distress. Cardiac: RRR, -mrg. Radial pulses intact and symmetrical. No LE edema. Abdominal: soft, non-tender, non-distended, BS x 4 Skin: warm, dry, no rash Neurologic: severe hemiplegia in left face/UE/LE with 1/5 strength in left UE/LE. decreased sensation in left face/UE/LE. Impaired upper/lower motor function of face. Results & Data Results & Data ([facility]) Vital Signs (Past 12 Hours) Vital Signs Temp Pulse Pulse Resp BP Pulse Ox 07/19/21 08:11 36.4 C L 91 H 16 116/74 95 07/19/21 03:25 37.0 C 90 18 95/59 L 95 07/18/21 23:45 37.1 C 89 16 97/61 L 94 07/18/21 23:27 90 Resident Activity Tracking Resident Involvement: Resident Care Provided Care Provided: Adult Hospital Medicine
[2021-07-19] MEDS: DOCUSATE SODIUM/SENNA 50/8.6MG TAB PO SCH (12:11)
[2021-07-19] MEDS: ACETAMINOPHEN 500 MG TAB PO PRN ×2 (12:31→21:21)
[2021-07-19] MEDS: ASPIRIN 81 MG ECTAB PO SCH (17:35)
--- NOTE | 2021-07-19 20:46 | Billing Data ---
Date of Service July 19, 2021 Coding Level of Care Code 16509 Subseq Hosp Care Lvl 2
[2021-07-19] MEDS: ATORVASTATIN 40 MG TAB PO SCH (21:14)
--- NOTE | 2021-07-20 05:13 | Hospitalist Progress Note ---
Date of Service July 20, 2021 Assessment & Plan (1) Stroke: Plan: Patient is a 71 year old female with PMHx Pulmonary Embolism x6, COPD, DM2, suspected anticoagulation disorder, who presents after sustaining 2 falls overnight in addition to L sided weakness, L sided facial droop -- subsequently found to have acute R thalamic/internal capsule CVA. She is s/p TNKase on 07/16 and is demonstrating minimal improvements in L sided weakness. Right-sided CVA MRI brain showed acute infarct in the lateral right thalamus/posterior limb of the right internal capsule in addition to old left frontal lobe infarct and multiple old lacunar infarcts within the bilateral basal ganglia --> likely due to intracerebral atherosclerotic disease. - S/p TNKase on 07/16, No s/s bleeding/hemorrhage - dysarthria improved and left-sided hemiplegia mildly improved - continue ASA 81, atorvastatin 40 --> recheck lipid profile in 6 weeks time (first week of Aug 2021) to reassess need for atorvastatin 80 - Neurology on board - appreciate recs - Prozac for post-CVA depression, as below - Continue PT, OT Post-CVA Depression - Patient reporting feeling down, tired, and depressed since admission - After discussing with patient, do believe she would benefit from low-dose Prozac -- will start at 10mg - Can consider titrating as needed Constipation No BM for >4 days, with mild lower abdominal tenderness. - continue Miralax BID - Continue senokot - Can consider adding mineral oil if no success COPD - Continue home inhalers - smoking cessation History of PE Per 2017 records scanned into our system, h/o multiple PEs in past (provocations unknown); daughter has clotting disorder, though ?patient has not been formally worked up for the same herself. Has h/o IVC filter placement. Per patient, has been on Coumadin since the 1970s - Resume warfarin 6mg daily today (noted that INR was 1 on admission) - Consider formal outpatient hypercoagulability work-up and discussion for NOAC - Outpatient INR managed by PCP -- goal 2-3 DM2 (A1c 7.1% on admission) - Likely compounded with diabetic neuropathy - Hold home metformin - continue SSI and AC/HS monitoring Dispo: med/surg with tele, pending placement at rehab ([facility] referral made) FEN/GI: HH, DM2, easy to chew. DVT: Restart Warfarin 6mg home dose. Continue ASA + SCDs in interim. Code: Full Admission and Anticipated Discharge Date Admission Date: July 16, 2021 Supervising Physician Co-Signing Physician Notes I personally examined the patient and verified all simons points of history and exam, discussed case, and agree with decision making with Dr Moncada. Also discussed the case with the neurology custom decorating consultant. Exam 104/67, 78, 19, 37.3, 97% on room air Dysarthria has improved, other arm and leg remain weak. Data Hemoglobin 12.4, platelet count 248 Sodium 141, potassium 4.1, BUN 20, creatinine 0.61 Impression and plan CVA Continue aspirin 81 mg daily Restart Coumadin Atorvastatin Tobacco cessation Physical and Occupational Therapy Additional per resident documentation Subjective No acute events overnight. Patient seen at the bedside this morning, denies any complaints. Denies any pain. Denies any shortness of breath. Does say that her left side continues to feel extremely weak, not seeing much improvement herself. She continues to eat okay. She endorses passing gas. Review of Systems Review of Systems: as per HPI Physical Exam Physical Exam: General: Tired appearing 71-year-old female who is lying back in her hospital bed relaxed upon my arrival. No acute distress. Cardiac: Normal rate and regular rhythm; S1 and S2 present with no murmurs, rubs, or gallops. Pulmonary: Good respiratory effort with symmetric expansion of the chest. No use of accessory muscles. Lungs were clear to auscultation bilaterally with no crackles or wheezes. Abdominal: Normoactive bowel sounds. Abdomen was soft, nondistended, and non- tender to palpation. Neuro: - Cranial Nerves: Left sided facial droop persists. - Motor: UE - Finger, wrist, elbow, and shoulder strength is 5/5 on RIGHT, 1/5 on LEFT. LE - Hip, knee, and ankle strength is 5/5 on RIGHT, 0/5 on LEFT. - Sensation: Patient reports diminished sensation in LUE compared to RIGHT. Lower extremities generally same per patient. - Reflexes - Biceps 2+ on RIGHT, 0 on LEFT; lower extremities - patellar 2+ on RIGHT, 0 on left. 1 beat of clonus appreciated on LEFT Results & Data Results & Data ([facility]) Vital Signs (Past 12 Hours) Vital Signs Temp Pulse Pulse Resp BP Pulse Ox 07/20/21 02:52 36.5 C 81 16 112/71 96 07/19/21 23:43 36.6 C 89 18 123/77 96 07/19/21 23:07 83 07/19/21 19:45 36.7 C 102 H 18 128/81 95 Resident Activity Tracking Resident Involvement: Resident Care Provided Care Provided: Adult Hospital Medicine
[2021-07-20 07:14] LABS: Basophils # (auto) 0.01 K/uL (0-0.2); Basophils % (auto) 0.2 %; Eosinophils % (auto) 1.6 %; Hematocrit (blood only) 38.1 % (37-47); Hemoglobin 12.4 g/dL (12.0-16.0); Immature Granulocytes # (auto) 0.02 K/uL (0.00-0.02); Immature Granulocytes % (auto) 0.3 %; Lymphocytes # (auto) 2.04 K/uL (1.2-3.4); Lymphocytes % (auto) 32.5 %; Mean Corpuscular Hgb Conc 32.5 g/dL (32-36); Mean Corpuscular Volume 95.3 fL (80-100); Mean Platelet Volume 10.3 fL (7.4-10.4); Monocytes # (auto) 0.45 K/uL (0.11-0.59); Monocytes % (auto) 7.2 %; Neutrophils # (auto) 3.65 K/uL (1.4-6.5); Neutrophils % (auto) 58.2 %; Platelet Count 248 K/uL (130-400); RDW Coefficient of Variation 13.4 % (11.5-14.5); RDW Standard Deviation 46.3 fL (36.4-46.3); White Blood Count 6.27 K/uL (4.8-10.8)
[2021-07-20 07:24] LABS: Prothrombin Time 9.8 Seconds (9.0-12.0)
[2021-07-20 07:43] LABS: BUN Creatinine Ratio 32.2 (10-20); Calcium 8.9 mg/dl (8.5-10.1); Creatinine Clr Calc Pharmacy 73.8 ml/min; Est GFR (African American) 104.2 ml/min; Est GFR (Non-African American) 89.9 ml/min; Magnesium 2.1 mg/dl (1.8-2.4); Potassium 4.1 mmol/L (3.5-5.1)
--- NOTE | 2021-07-20 08:21 | Neurology Progress Note ---
Date of Service July 20, 2021 Assessment & Plan (1) Acute CVA (cerebrovascular accident): (2) Hypertension: (3) Diabetic neuropathy: Plan: The patient had a relatively small sized acute right hemispheric stroke in the junction between the basal ganglia and thalamus, late in the evening on July 15. Although the stroke size was not very big, her deficits were significant, with severe dysarthria and a left hemiplegia including face arm and leg. Over the last 4 days, her dysarthria has improved nicely and she can move the corner of her mouth on the left. Unfortunately, the left arm and leg are still profoundly weak. Her right side is mildly weak but I think this is chronic. She has an underlying polyneuropathy, likely due to diabetes. Other risk factors for stroke include chronic lifelong cigarette smoking and she was significantly hypertensive on admission. Her blood pressure is normal currently. She was already on Coumadin for a history of multiple pulmonary emboli. This type of anticoagulation, however, does not prevent small vessel ischemic disease, of which she is at high risk. Recommendations: 1. Continue 81 milligram aspirin tablet daily, in addition to the Coumadin. 2. Continue atorvastatin 40. she is, technically, high-dose statin candidate. 3. Discontinue cigarette smoking. 4. Control blood pressure, as you are doing, aiming for a mean arterial pressure of approximately 100. 5. increase activity as able and update speech, Physical, and Occupational therapy consult. Overall, I spent a total of 35 minutes with this case including review of records, direct evaluation the patient bedside, and discussion of the case with the patient and RN at bedside, and Dr. Garibay, including differential diagnosis and treatment options. Admission and Anticipated Discharge Date Admission Date: July 16, 2021 Subjective Patient is getting discouraged that she cannot move her left side. She has not made any significant progress with left-sided weakness except for the face. Her speech is very intelligible today. Blood pressure is 112/70. CBC is unremarkable. CMP shows a glucose of 120 Nursing reports no new events overnight. Results & Data ([facility]) Vital Signs (Past 12 Hours) Vital Signs Temp Pulse Pulse Resp BP Pulse Ox 07/20/21 02:52 36.5 C 81 16 112/71 96 07/19/21 23:43 36.6 C 89 18 123/77 96 07/19/21 23:07 83 Exam (Neuro) Physical Exam: She is awake and alert. Speech is without any obvious aphasia and I do not detect any significant dysarthria anymore. Extraocular eye muscles are intact nystagmus. There is some asymmetry and droop of the corner of the mouth with the face on the left but it move some with voluntary smile. This is improved compared to previous. Although the patient has some proximal movement in the left arm and leg she is 0/5 in each limb otherwise PG Care Time/CCT Total # of Minutes Spent Total Time Spent with Patient: Total time spent is greater than 50% in coordination of care (as documented) at patient's floor/unit and/or counseling patient: Coding Level of Care Code 80219 Subseq Hosp Care Lvl 3 Diagnoses Acute CVA (cerebrovascular accident) I63.9 Hypertension I10 Hypertension type: unspecified Diabetic neuropathy E11.40 Time Spent (min) 35 (1) Hypertension Hypertension type: unspecified Qualified Code(s): I10 - Essential (primary) hypertension
[2021-07-20] MEDS: DOCUSATE SODIUM/SENNA 50/8.6MG TAB PO SCH (08:26)
[2021-07-20] MEDS: INSULIN ASPART 100 UNITS/ML 3 ML PEN SC SCH ×4 (08:26→20:50)
[2021-07-20] MEDS: POLYETHYLENE (MIRALAX) 17 GM PACK PO SCH ×2 (08:27→20:50)
[2021-07-20] MEDS: FLUoxetine HCL 10 MG CAP PO SCH (12:00)
[2021-07-20] MEDS: ACETAMINOPHEN 500 MG TAB PO PRN (14:41)
[2021-07-20] MEDS: WARFARIN SOD 6 MG TAB PO SCH (17:09)
[2021-07-20] MEDS: ASPIRIN 81 MG ECTAB PO SCH (17:10)
[2021-07-20] MEDS: ATORVASTATIN 40 MG TAB PO SCH (20:50)
[2021-07-21 06:20] LABS: Prothrombin Time 10.1 Seconds (9.0-12.0)
--- NOTE | 2021-07-21 06:49 | Hospitalist Progress Note ---
Date of Service July 21, 2021 Assessment & Plan (1) Stroke: Plan: Patient is a 71 year old female with PMHx Pulmonary Embolism x6, COPD, DM2, suspected anticoagulation disorder, who presents after sustaining 2 falls overnight in addition to L sided weakness, L sided facial droop -- subsequently found to have acute R thalamic/internal capsule CVA. She is s/p TNKase on 07/16 and is demonstrating minimal improvements in L sided weakness. Right-sided CVA MRI brain showed acute infarct in the lateral right thalamus/posterior limb of the right internal capsule in addition to old left frontal lobe infarct and multiple old lacunar infarcts within the bilateral basal ganglia --> likely due to intracerebral atherosclerotic disease. - s/p TNKase on 07/16 -- no s/s bleeding/hemorrhage - dysarthria improved and left-sided hemiplegia mildly improved from day-today - continue ASA 81, atorvastatin 40, T2DM control (on metformin at home), smoking cessation --> recheck lipid profile in 6 weeks time (first week of Aug 2021) to reassess need for atorvastatin 80 - Neurology on board - appreciate recs - Prozac for post-CVA depression, as below - Continue PT, OT -- recommending inpatient rehabilitation for restrengthening. Agree. Submit for auth. CM assisting. Post-CVA Depression - Patient reporting feeling down, tired, and depressed since admission - Prozac 10mg initiated 07/20 -- consider outpatient increase / d/c p.r.n. Constipation -- Resolving, last BM 07/21 - continue Miralax BID, Senna МАРИНА - Can consider adding mineral oil if needed going forward COPD - Continue home inhalers - smoking cessation History of PE Per 2017 records scanned into our system, h/o multiple PEs in past (provocations unknown); daughter has clotting disorder, though ?patient has not been formally worked up for the same herself. Has h/o IVC filter placement. Per patient, has been on Coumadin since the - INR at 1.0 on recheck 07/21 - Resumed warfarin 6mg daily on 07/20 (noted that INR was 1 on admission) - Consider formal outpatient hypercoagulability work-up and discussion for NOAC - Outpatient INR managed by PCP -- goal 2-3 DM2 (A1c 7.1% on admission) - Likely compounded with diabetic neuropathy - Hold home metformin - continue SSI and AC/HS monitoring Dispo: med/surg with tele, pending placement at rehab ([facility] referral made) FEN/GI: HH, DM2, easy to chew. DVT: Restart Warfarin 6mg home dose. Continue ASA + SCDs in interim. Code: Full Admission and Anticipated Discharge Date Admission Date: July 16, 2021 Supervising Physician Co-Signing Physician Notes I personally examined the patient and verified all simons points of history and e xam, discussed case, and agree with decision making with Dr Moncada. Agree with impression and plan as noted in his documentation. Exam 114/71, 89, 20, 37.1, 93% on room air Some increase strength of the lower extremity compared to yesterday, although still no dorsi or plantarflexion appreciated. Impression and plan CVA Continue aspirin 81 mg daily Coumadin has been restarted Atorvastatin Tobacco cessation Physical and Occupational Therapy Placement pending availability and authorization Additional per resident documentation Subjective NAEO. Feeling well this AM. Just finished breakfast. Mild abdominal pain following breakfast - just wants to try tylenol. Does not radiate. Burning sensation. No CP/palpitations/SOB. Strength feels like it's coming back in L leg Review of Systems Review of Systems: as per HPI Physical Exam Physical Exam: General: Tired appearing 71-year-old female who is lying back in her hospital bed relaxed upon my arrival. No acute distress. Cardiac: Normal rate and regular rhythm; S1 and S2 present with no murmurs, rubs, or gallops. Pulmonary: Good respiratory effort with symmetric expansion of the chest. No use of accessory muscles. Lungs were clear to auscultation bilaterally with no crackles or wheezes. Abdominal: Normoactive bowel sounds. Abdomen was soft, nondistended, and non- tender to palpation. Neuro: - Cranial Nerves: Left sided facial droop persists. - Motor: UE - Finger, wrist, elbow, and shoulder strength is 5/5 on RIGHT, 1/5 on LEFT. LE - Hip, knee, and ankle strength is 5/5 on RIGHT, 1-2/5 on LEFT with occasional spasms, improved from yesterday - Sensation: Patient reports diminished sensation in LUE compared to RIGHT. Lower extremities generally same per patient. - Reflexes - Biceps 2+ on RIGHT, 0 on LEFT; lower extremities - patellar 2+ on RIGHT, 0 on left. Results & Data Results & Data ([facility]) Vital Signs (Past 12 Hours) Vital Signs Temp Pulse Pulse Resp BP Pulse Ox 07/21/21 03:23 36.5 C 90 18 128/72 96 07/20/21 23:59 93 H 07/20/21 23:13 36.6 C 95 H 18 128/75 94 07/20/21 19:16 36.8 C 89 16 115/72 96 Resident Activity Tracking Resident Involvement: Resident Care Provided Care Provided: Adult Hospital Medicine
[2021-07-21] MEDS: FLUoxetine HCL 10 MG CAP PO SCH (08:33)
[2021-07-21] MEDS: DOCUSATE SODIUM/SENNA 50/8.6MG TAB PO SCH (08:33)
[2021-07-21] MEDS: POLYETHYLENE (MIRALAX) 17 GM PACK PO SCH ×2 (08:33→21:16)
[2021-07-21] MEDS: INSULIN ASPART 100 UNITS/ML 3 ML PEN SC SCH ×4 (08:33→21:00)
[2021-07-21] MEDS: ACETAMINOPHEN 500 MG TAB PO PRN ×2 (08:36→16:16)
[2021-07-21] MEDS: ASPIRIN 81 MG ECTAB PO SCH (16:14)
[2021-07-21] MEDS: WARFARIN SOD 6 MG TAB PO SCH (16:14)
[2021-07-21] MEDS ORDERED: KETOROLAC TROMETHAMINE 15 MG/ML VIAL IV ONE (20:20)
[2021-07-21] MEDS ORDERED: bisacodyL 10 MG SUPP PR STA (20:47)
--- NOTE | 2021-07-21 20:53 | XRay Report ---
KUB HISTORY: Generalized abdominal pain COMPARISON: Abdomen and pelvis CT 08/24/2017. KUB 11/26/2016. FINDINGS: The bowel gas pattern is unremarkable. There are no dilated loops of small bowel to suggest an obstruction. No renal calculi. No ureteral calculi. No pneumoperitoneum or pneumatosis. An IVC f ilter is noted along the right side of the L3 and L4 vertebral bodies. Prior cholecystectomy. IMPRESSION: 1. No evidence for bowel obstruction. 2. No renal or ureteral calculi. 3. Prior cholecystectomy. ACT 112: Negative or not required by law. Electronically signed by: Balwinder Nam M.D. 07/21/2021 8:52 PM
[2021-07-21] MEDS: ATORVASTATIN 40 MG TAB PO SCH (21:16)
[2021-07-22] MEDS: ACETAMINOPHEN 500 MG TAB PO PRN ×2 (00:27→10:34)
--- NOTE | 2021-07-22 00:53 | Communication Note ---
Date of Service: July 22, 2021 Notified by nursing was having chest pain. At bedside, patient notes that she has had this chest pain 2-3 times now during her stay, but never thought to mention it as no one was ever around when it occurred and that it resolved fairly rapidly. Patient describes the pain as pressure in her L chest that seems to be provoked when she attempts to reposition herself. Palpation of the chest DOES NOT reproduce or worsen the pain. Patients vitals are stable with BP 133/75, HR 65. Lungs appear clear b/l on exam. Oxygenating at 95% on room air. -EKG ordered, relatively unchanged from previous EKG on 07/18/21 -Patient noting the chest pain has passed at this time -Will check CBC, BMP, and Troponin -Suspect there is some musculoskeletal component to her pain due to pain primarily with positioning, though that may be associated with exertion as well. Resident Activity Tracking Resident Involvement: Resident Care Provided and [employer] Coverage Note Care Provided: Adult Hospital Medicine
[2021-07-22 01:28] LABS: Basophils # (auto) 0.03 K/uL (0-0.2); Basophils % (auto) 0.4 %; Eosinophils # (auto) 0.16 K/uL (0-0.5); Eosinophils % (auto) 2.1 %; Hematocrit (blood only) 36.2 % (37-47); Immature Granulocytes # (auto) 0.02 K/uL (0.00-0.02); Immature Granulocytes % (auto) 0.3 %; Lymphocytes # (auto) 2.03 K/uL (1.2-3.4); Lymphocytes % (auto) 26.6 %; Mean Corpuscular Hemoglobin 31.4 pg (25-34); Mean Corpuscular Hgb Conc 33.1 g/dL (32-36); Mean Corpuscular Volume 94.8 fL (80-100); Mean Platelet Volume 10.2 fL (7.4-10.4); Monocytes # (auto) 0.64 K/uL (0.11-0.59); Monocytes % (auto) 8.4 %; Neutrophils # (auto) 4.74 K/uL (1.4-6.5); Neutrophils % (auto) 62.2 %; Platelet Count 256 K/uL (130-400); RDW Coefficient of Variation 13.5 % (11.5-14.5); RDW Standard Deviation 46.1 fL (36.4-46.3); Red Blood Count 3.82 M/uL (4.2-5.4); White Blood Count 7.62 K/uL (4.8-10.8)
[2021-07-22 01:47] LABS: BUN Creatinine Ratio 31.3 (10-20); Blood Urea Nitrogen 25 mg/dl (7-18); Carbon Dioxide 28 mmol/L (21-32); Chloride 108 mmol/L (98-107); Creatinine Clr Calc Pharmacy 56.2 ml/min; Est GFR (African American) 83.5 ml/min; Est GFR (Non-African American) 72.1 ml/min; Glucose 145 mg/dl (70-99); Potassium 3.8 mmol/L (3.5-5.1); Sodium 139 mmol/L (136-145)
[2021-07-22 01:51] LABS: Troponin I < 0.015 ng/ml (0-0.045)
--- NOTE | 2021-07-22 07:24 | XRay Report ---
XR chest 1V portable CLINICAL HISTORY: Atypical chest pain. COMPARISON STUDY: Chest CT September 28, 2017. Chest radiograph July 18, 2021. FINDINGS: Lung volumes are normal. Lungs are clear. There is no pneumothorax or pleural effusion. Car diac size is normal. Mediastinal contours are normal. There is no evidence for pulmonary edema. IMPRESSION: No acute cardiopulmonary findings. ACT 112: Negative or not required by law. Electronically signed by: Dawit Sorto M.D. 07/22/2021 7:22 AM
--- NOTE | 2021-07-22 07:40 | Hospitalist Progress Note ---
Date of Service July 22, 2021 Assessment & Plan (1) Stroke: Plan: Patient is a 71 year old female with PMHx Pulmonary Embolism x6, COPD, DM2, suspected anticoagulation disorder, who presents after sustaining 2 falls overnight in addition to L sided weakness, L sided facial droop -- subsequently found to have acute R thalamic/internal capsule CVA. She is s/p TNKase on 07/16 and is demonstrating minimal improvements in L sided weakness. Now awaiting placement Right-sided CVA MRI brain showed acute infarct in the lateral right thalamus/posterior limb of the right internal capsule in addition to old left frontal lobe infarct and multiple old lacunar infarcts within the bilateral basal ganglia --> likely due to intracerebral atherosclerotic disease. - s/p TNKase on 07/16 -- no s/s bleeding/hemorrhage - dysarthria improved and left-sided hemiplegia mildly improved from day-today - continue ASA 81, atorvastatin 40, T2DM control (on metformin at home), smoking cessation --> recheck lipid profile in 6 weeks time (first week of Aug 2021) to reassess need for atorvastatin 80 - Neurology on board - appreciate recs - Prozac for post-CVA depression, as below - Continue PT, OT -- recommending inpatient rehabilitation for restrengthening. Agree. Submit for auth. CM assisting. Post-CVA Depression - Patient reporting feeling down, tired, and depressed since admission - Prozac 10mg initiated 07/20 -- consider outpatient increase / d/c p.r.n. Positionally-related Chest Discomfort -- likely musculoskeletal in nature - Reported overnight 07/21-07/22 as dull pressure that is worsened with positional changes - ECG, troponin, CXR, KUB negative, VSS overnight and at time of report. No rubs on exam. - Suspect musculoskeletal in nature / from fall, but will continue to monitor. Tylenol p.r.n. - Consider ECG, repeat troponin p.r.n. Constipation / Bowel Regimen -- Improving, last BM 07/21 - continue Miralax BID, Senna МАРИНА - Can consider adding mineral oil if needed going forward COPD - Continue home inhalers - smoking cessation History of PE Per 2017 records scanned into our system, h/o multiple PEs in past (provocations unknown); daughter has clotting disorder, though ?patient has not been formally worked up for the same herself. Has h/o IVC filter placement. Per patient, has been on Coumadin since the - INR at 1.1 on recheck 07/22 -- continue monitoring q2d - Resumed warfarin 6mg daily on 07/20 (noted that INR was 1 on admission) --> give additional 1mg today - Consider formal outpatient hypercoagulability work-up and discussion for NOAC - Continue SCDs for DVT PPX DM2 (A1c 7.1% on admission) - Likely compounded with diabetic neuropathy - Hold home metformin - continue SSI and AC/HS monitoring Dispo: med/surg with tele, pending placement at rehab ([facility] referral made) FEN/GI: HH, DM2, easy to chew. DVT: Restart Warfarin 6mg home dose. Continue ASA + SCDs in interim. Code: Full Admission and Anticipated Discharge Date Admission Date: July 16, 2021 Supervising Physician Co-Signing Physician Notes I personally examined the patient and verified all simons points of history and exam, discussed case, and agree with decision making with Dr Moncada. Agree with impression and plan as noted in his documentation. Upon examination, the patient without complaints. Her speech continues to become more clear and understandable. Her overall affect seems improved today as well. Exam 129/80, 84, 20, 36.7, 93% on room air Impression and plan CVA Continue aspirin 81 mg daily Fluoxetine 10 mg was added for post CVA depression; this can be titrated in the future if needed. Coumadin has been restarted; will need monitoring PT/INR Atorvastatin 40 mg p.o. nightly added Tobacco cessation Transfer today for acute inpatient rehabilitation Additional per resident documentation Subjective Overnight, patient had reported abdominal and chest pain that was assessed by the night physician. Chest pain described as pressure in nature and has occurred 2-3 times over hospital stay, per patient's report last night, but this was the first time she had notified anyone about it. Worsened with repositioning. ECG normal, troponin negative overnight. Abdominal pain also described as pressure. KUB demonstrating stool burden. This AM - pain completely resolved. She personally feels the chest pain is secondary to the fall that preceded her admission. Says it comes and goes, very positionally related. No h/o CP w/ exertion, PND/orthopnea. Baseline shortness of breath unchanged in context of COPD. Arielle feels fine to her this AM. Good appetite. No n/v/d. Review of Systems Review of Systems: as per HPI Physical Exam Physical Exam: General: Tired appearing 71-year-old female who is lying back in her hospital bed relaxed upon my arrival. No acute distress. Cardiac: Normal rate and regular rhythm; S1 and S2 present with no murmurs, rubs, or gallops. Chest pain not reproduced w/ palpation. Pulmonary: Good respiratory effort with symmetric expansion of the chest. No use of accessory muscles. 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 Abdominal: Normoactive bowel sounds. Abdomen was soft, nondistended, and non- tender to palpation. Neuro: - Cranial Nerves: L facial droop barely noticeable at this point. Dysarthria greatly improved. - Motor: UE - Finger, wrist, elbow, and shoulder strength is 5/5 on RIGHT, 1/5 on LEFT. LE - Hip, knee, and ankle strength is 5/5 on RIGHT, 1-2/5 on LEFT with occasional spasms, improved from yesterday - Sensation: Patient reports diminished sensation in LUE compared to RIGHT. Lower extremities generally same per patient. - Reflexes - Biceps 2+ on RIGHT, 0 on LEFT; lower extremities - patellar 2+ on RIGHT, 0 on left. Results & Data Results & Data ([facility]) Vital Signs (Past 12 Hours) Vital Signs Temp Pulse Pulse Resp BP Pulse Ox 07/22/21 06:59 36.6 C 85 18 128/64 98 07/22/21 03:49 36.5 C 78 16 135/67 95 07/22/21 02:45 84 07/21/21 22:50 36.9 C 65 20 133/75 95 07/21/21 19:40 36.9 C 102 H 20 122/80 99 Resident Activity Tracking Resident Involvement: Resident Care Provided Care Provided: Adult Hospital Medicine
[2021-07-22] MEDS: FLUoxetine HCL 10 MG CAP PO SCH (08:30)
[2021-07-22] MEDS: DOCUSATE SODIUM/SENNA 50/8.6MG TAB PO SCH (08:30)
[2021-07-22] MEDS: POLYETHYLENE (MIRALAX) 17 GM PACK PO SCH (08:30)
[2021-07-22] MEDS: INSULIN ASPART 100 UNITS/ML 3 ML PEN SC SCH ×2 (08:32→12:24)
[2021-07-22 08:33] LABS: INR 1.1 (0.9-1.1); Prothrombin Time 10.9 Seconds (9.0-12.0)
[2021-07-22] MEDS ORDERED: STROKE PATIENT DISCHARGE STA (12:53)
--- NOTE | 2021-07-22 12:53 | Discharge Summary ---
Date of Service July 22, 2021 Admission HPI Per Admitting Provider Patient is a 71 year old female with PMHx Pulmonary Embolism x6, COPD, DM2, suspected anticoagulation disorder, who presents after sustaining 2 falls overnight in addition to L sided weakness, L sided facial droop, and slurred speech with last known well at 11PM. Patient notes that for the past 1 week she has actually been feeling weaker and unwell, however, noted that she had fallen 2x throughout the night. She notes that on the second fall she was found by her who at that time had noted L sided facial droop on the patient and called for emergency services due to concern for stroke. Patient denies any history of stroke, though states that she has had "6 pulmonary emboli" in her life and that she has been taking daily warfarin as a result. She notes that she takes 6mg of Warfarin daily, including today. She feels her initial blood clots started with OCPs, but had them even after discontinuation. Of note, her daughter has a clotting disorder thought to be lupus anticoagulant related. Patient currently notes that she is having some neck and back pain in addition to L hand and leg weakness. She has minimal use of her L arm/hand and cannot lift the L leg, but can move her ankle. She feels that her sensation of all extremities is intact and equal. She is not having a headache. She denies any visual disturbances. She denies any fever, chills, SOB, chest pain, abdominal pain, nausea. In the ED patient was evaluated by Telestroke and after discussion between the family decision was held to administration of TNKase. Med Hx: Pulmonary Embolism x6, COPD, DM2, suspected anticoagulation disorder Surg Hx: Lap liu Soc Hx: Daily smoker since age 12, currently ~1/2PPD, denies tobacco or illicit drug use. Admission Exam Per Admitting Provider Constitutional: + frail appearing and cooperative; no ac [place] distress Eyes: PERRL, conjunctivae normal, anicteric sclerae normal visual maxwell by confrontation and reactive pupils ENMT: external ear and nose normal, oropharynx normal L sided facial droop Neck: trachea midline, no thyromegaly Respiratory: normal respiratory effort, lungs clear to auscultation Cardiovascular: RRR, no murmur, no edema Gastrointestinal (Abdomen): normal bowel sounds, soft, nontender, no hepatosplenomegaly Musculoskeletal: Head/Neck/Chest: normocephalic and head atraumatic -Unable to move LUE or squeeze with her L hand -Unable to move LLE in flexion, extensio n, abduction, adduction. Able to dorsiflex the ankle. Skin: no rashes, warm and dry Neurologic: normal touch/pain/proprioception, CN's II-XI intact bilaterally and awake Speech / Cognition: + abnormal speech (slurred speech ) Motor/Sensory: + abnormal movement (minimal movement of L arm or leg ) Cranial Nerves: PERRL and EOM intact bilaterally Coordination: + abnormal kqpcdc-gq-zatt test (unable t ocomplete on L side ) and + abnormal pbia-hx-lpmq test (unable to complete on L side ) Psychiatric: Orientation: alert and oriented x 3 Eye Contact: + fair eye cont act Principal Diagnosis Right sided CVA s/p TNKase (thrombolytic) Post-CVA depression COPD Discharge Exam General: Tired appearing 71-year-old female who is lying back in her hospital bed relaxed upon my arrival. No acute distress. Cardiac: Normal rate and regular rhythm; S1 and S2 present with no murmurs, rubs, or gallops. Chest pain not reproduced w/ palpation. Pulmonary: Good respiratory effort with symmetric expansion of the chest. No use of accessory muscles. Lungs were clear to auscultation bilaterally with no crackles or wheezes. Abdominal: Normoactive bowel sounds. Abdomen was soft, nondistended, and non- tender to palpation. Neuro: - Cranial Nerves: L facial droop barely noticeable at this point. Dysarthria greatly improved. - Motor: UE - Finger, wrist, elbow, and shoulder strength is 5/5 on RIGHT, 1/5 on LEFT. LE - Hip, knee, and ankle strength is 5/5 on RIGHT, 1-2/5 on LEFT with occasional spasms, improved from yesterday - Sensation: Patient reports diminished sensation in LUE compared to RIGHT. Lower extremities generally same per patient. - Reflexes - Biceps 2+ on RIGHT, 0 on LEFT; lower extremities - patellar 2+ on RIGHT, 0 on left. Discharge Data Allergies Allergy/AdvReac Type Severity Reaction Status Date / Time Sulfa (Sulfonamide Allergy Severe RASH, Verified 07/16/21 00:28 Antibiotics) SHORTNESS OF BREATH bacitracin Allergy Intermediate facial Verified 07/16/21 00:28 swelling and erythema Consultations 07/16/21 02:02 ED Decision to Admit Stat 07/16/21 04:17 Consult Bsa/Aml Compliance Officer Routine Consult Neurology Routine Dr. Stokes 07/20: "The patient had a relatively small sized acute right hemispheric stroke in the junction between the basal ganglia and thalamus, late in the evening on July 15. Although the stroke size was not very big, her deficits were significant, with severe dysarthria and a left hemiplegia including face arm and leg. Over the last 4 days, her dysarthria has improved nicely and she can move the corner of her mouth on the left. Unfortunately, the left arm and leg are still profoundly weak. Her right side is mildly weak but I think this is chronic. She has an underlying polyneuropathy, likely due to diabetes. Other risk factors for stroke include chronic lifelong cigarette smoking and she was significantly hypertensive on admission. Her blood pressure is normal currently. She was already on Coumadin for a history of multiple pulmonary emboli. This type of anticoagulation, however, does not prevent small vessel ischemic disease, of which she is at high risk. Recommendations: 1. Continue 81 milligram aspirin tablet daily, in addition to the Coumadin. 2. Continue atorvastatin 40. she is, technically, high-dose statin candidate. 3. Discontinue cigarette smoking. 4. Control blood pressure, as you are doing, aiming for a mean arterial pressure of approximately 100. 5. increase activity as able and update speech, Physical, and Occupational therapy consult." Ordered Studies 07/15/21 23:56 CTA-Head/Neck: HISTORY: Left-sided weakness. Stroke Like Symptoms TECHNIQUE: Multiaxial CT images of the head were performed following the intravenous administration of contrast to evaluate the major cerebral vessels. Multiaxial CT images of the neck were also performed following the intravenous administration of contrast to evaluate the major cervical vessels. Maximum intensity projection images were also obtained. A dose lowering technique was utilized adhering to the principles of ALARA. COMPARISON: None. FINDINGS: The major dural venous sinuses appear patent. 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 Mild multifocal stenosis within the intracranial internal carotid arteries due to the calcified plaque. Mild multifocal stenosis seen within the left JENNIFER and proximal right MCA. The distal vertebral arteries and basilar artery are patent. No occlusion or aneurysm identified within the [place]. Moderate calcified plaque within the aortic arch. There is mild focal narrowing of approximately 30% at the takeoff of the left subclavian artery. There is also mild focal stenosis of approximately 30-50% within the proximal right subclavian artery. Bilateral common carotid arteries and vertebral arteries are patent. Mild calcified plaque within the bilateral carotid bifurcations. The left internal carotid artery is widely patent. There is a focal intimal flap within the proximal right internal carotid artery suggesting a chronic dissection. Remaining mid to distal right internal carotid artery is widely patent.. There is 1.2 cm right thyroid nodule. This does not meet CT criteria for follow-up. IMPRESSION: 1. No significant occlusion or aneurysm within the [place] of [place]. 2. 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 3. Mild multifocal stenosis within the left JENNIFER and proximal right MCA. 4. Focal intimal flap within the proximal right internal carotid artery suggesting a chronic dissection. 5. No high-grade stenosis or occlusion within the bilateral carotid or vertebral arteries. 6. Additional findings as described above." 07/16/21 02:47 MR brain wo/w con Stat "CLINICAL HISTORY: stroke, L side weakness COMPARISON STUDY: MRI of the brain March 13, 2008. Head CT and CTA of the head July 16, 2021. TECHNIQUE: Utilizing a 1.5 Regina magnet and dedicated coil, multiplanar, multiecho imaging of the brain was performed pre and postcontrast administration. IV administration of 5.5 mL of Gadavist contrast was unev entful. FINDINGS: There is a 1.6 x 0.6 cm focus of restricted diffusion within the lateral right thalamus/posterior limb of the right internal capsule. This represents an acute infarct. There is no mass effect. There is no hemorrhage. Old lacunar infarcts within the bilateral basal ganglia are noted. There is an old left frontal lobe infarct. Mild ventricular dilatation is due to atrophy. Basal cisterns are patent. There are no extra-axial collections. White matter T2 hyperintense foci are present. There is no intracranial mass or pathologic enhancement. There is ossification along the falx. Calvarial signal is normal. IMPRESSION: 1. 1.6 x 0.6 cm acute infarct within the lateral right thalamus/posterior limb of the right internal capsule. No acute hemorrhage. No mass effect. 2. Old left frontal lobe infarct. Multiple old lacunar infarcts within the bilateral basal ganglia. ACT 112: Negative or not required by law." 07/17/21 02:00 CT head/brain wo con Routine CLINICAL HISTORY: 71 years-old Female with 24 hour screen post tenecteplase. Acute strokelike symptoms TECHNIQUE: Multiple axial CT images of the head were obtained without contrast. A dose lowering technique was utilized adhering to the principles of ALARA. CT DOSE: 918.38 mGy.cm COMPARISON: Head CT 07/16/2021, brain MRI 07/16/2021 FINDINGS: No acute intracranial hemorrhage, midline shift, intracranial mass, hydrocephalus, or abnormal extra-axial collection. Acute infarct measuring approximately 1.6 cm within the right thalamus/posterior limb of the right internal capsule is redemonstrated and demonstrates slightly increased amount of cytotoxic edema. Chronic lacunar infarcts of the basal ganglia with chronic infarct of the left frontal lobe.. Age-related involutional changes. Chronic microvascular ischemic disease. The calvarium is intact. The paranasal sinuses, mastoid air cells, and middle ear cavities are clear. IMPRESSION: 1.6 cm acute infarct of the right thalamus and posterior limb of the right internal capsule redemonstrated. No acute intracranial hemorrhage. Hospital Course (1) Stroke: Patient is a 71 year old female with PMHx Pulmonary Embolism x6, COPD, DM2, suspected anticoagulation disorder, who presents after sustaining 2 falls overnight in addition to L sided weakness, L sided facial droop -- subsequently found to have acute R thalamic/internal capsule CVA. She is s/p TNKase on 07/16 and is demonstrating minimal improvements in L sided weakness. Discharged to inpatient rehabilitation. Right-sided CVA MRI brain showed acute infarct in the lateral right thalamus/posterior limb of the right internal capsule in addition to old left frontal lobe infarct and multiple old lacunar infarcts within the bilateral basal ganglia --> likely due to intracerebral atherosclerotic disease rather than hypercoagulability - s/p TNKase on 07/16 -- no signs of bleeding throughout admission - dysarthria improved and left-sided hemiplegia mildly improved from day-today - started ASA 81, atorvastatin 40 --> recheck lipid profile in 6 weeks time - increase statin PRN - T2DM control (on metformin at home), smoking cessation on discharge - Neurology followed while here and aided in care - Prozac 10mg started for post-CVA depression, see below - PT, OT received while here, and discharged to inpatient rehabilitation - initially held warfarin in setting of thrombolytics, resumed 07/20 Post-CVA Depression - Patient reporting feeling down, tired, and depressed since admission - Prozac 10mg initiated 07/20 -- consider outpatient increase / d/c p.r.n. Positionally-related Chest Discomfort--likely musculoskeletal in nature - Reported overnight 07/21-07/22 as dull pressure that is worsened with positional changes. Resolved. - ECG, troponin, CXR, KUB negative, VSS throughout admission and at time of report. No rubs on exam. - Suspect musculoskeletal in nature / from fall, but will continue to monitor. Tylenol p.r.n. Constipation / Bowel Regimen --Improving, last BM 07/21 - continue Miralax at discharge. Responded well to Senna if needed. History of PE on Anticoagulation -- INR 1 at admission, goal INR 2-3 Per 2017 records scanned into our system, h/o multiple PEs in past (provocations unknown); daughter has clotting disorder, though ?patient has not been formally worked up for the same herself. Has h/o IVC filter placement. Per patient, has been on Coumadin since the - INR at 1.1 on day of discharge (2 days s/p resumption of warfarin) - Resumed home warfarin 6mg daily on 07/20 - Consider formal outpatient hypercoagulability work-up and discussion for NOAC - Recheck INR q2d until goal of 2-3 is reached, consider small additional dosages of warfarin p.r.n. COPD - Stable throughout stay - Continue home inhalers at d/c - Continue to encourage smoking cessation at d/c DM2(A1c 7.1% on admission) - Likely compounded with diabetic neuropathy - SSI and frequent monitoring while here - Resume home metformin on d/c FEN/GI:HH, DM2, easy to chew. Code:Full Code Total Time Total Time Spent Total Time Spent (In Minutes): 30 Discharge Plan Discharge Items Patient Disposition: Transfer Inpatient Rehab Fac Reason For Visit: STROKE Discharge Diagnosis: Right CVA requiring thrombolytics Post CVA depression History of COPD History of DVT, PE - on anticoagulation Condition on Discharge: Fair Activity: Per Instructions section Non-emergency contact: Primary Care Provider and Neurologist Call non-emergency contact if: you have any medication questions, your symptoms worsen and your temperature is above 101 Follow-up/Referrals: Denis Samuel [Primary Care Provider] - Diet: Carb Consistent or DM2 and Heart Healthy Diet Texture: Easy to Chew Addtl Attending Provider Instructions: Patient is a 71 year old female with PMHx Pulmonary Embolism x6, COPD, DM2, suspected anticoagulation disorder, who presents after sustaining 2 falls overnight in addition to L sided weakness, L sided facial droop -- subsequently found to have acute R thalamic/internal capsule CVA. She is s/p TNKase on 07/16 and is demonstrating minimal improvements in L sided weakness. Discharged to inpatient rehabilitation. Right-sided CVA MRI brain showed acute infarct in the lateral right thalamus/posterior limb of the right internal capsule in addition to old left frontal lobe infarct and multiple old lacunar infarcts within the bilateral basal ganglia --> likely due to intracerebral atherosclerotic disease rather than hypercoagulability - s/p TNKase on 07/16 -- no signs of bleeding throughout admission - dysarthria improved and left-sided hemiplegia mildly improved from day-today - started ASA 81, atorvastatin 40 --> recheck lipid profile in 6 weeks time - increase statin PRN - T2DM control (on metformin at home), smoking cessation on discharge - Neurology followed while here and aided in care - Prozac 10mg started for post-CVA depression, see below - PT, OT received while here, and discharged to inpatient rehabilitation - initially held warfarin in setting of thrombolytics, resumed 07/20 Post-CVA Depression - Patient reporting feeling down, tired, and depressed since admission - Prozac 10mg initiated 07/20 -- consider outpatient increase / d/c p.r.n. Positionally-related Chest Discomfort--likely musculoskeletal in nature - Reported overnight 07/21-07/22 as dull pressure that is worsened with positional changes. Resolved. - ECG, troponin, CXR, KUB negative, VSS throughout admission and at time of report. No rubs on exam. - Suspect musculoskeletal in nature / from fall, but will continue to monitor. Tylenol p.r.n. Constipation / Bowel Regimen --Improving, last BM 07/21 - continue Miralax at discharge. Responded well to Senna if needed. History of PE on Anticoagulation -- INR 1 at admission, goal INR 2-3 Per 2017 records scanned into our system, h/o multiple PEs in past (provocations unknown); daughter has clotting disorder, though ?patient has not been formally worked up for the same herself. Has h/o IVC filter placement. Per patient, has been on Coumadin since the - INR at 1.1 on day of discharge (2 days s/p resumption of warfarin) - Resumed home warfarin 6mg daily on 07/20 - Consider formal outpatient hypercoagulability work-up and discussion for NOAC - Recheck INR q2d until goal of 2-3 is reached, consider small additional dosages of warfarin p.r.n. COPD - Stable throughout stay - Continue home inhalers at d/c - Continue to encourage smoking cessation at d/c DM2(A1c 7.1% on admission) - Likely compounded with diabetic neuropathy - SSI and frequent monitoring while here - Resume home metformin on d/c FEN/GI:HH, DM2, easy to chew. Code:Full Code Pending Studies at Discharge: No Stand-Alone Forms: My [facility] Skilled Items Patient informed of condition?: Yes DNR: No Discharge Level of Care: Acute rehab Communicable Disease: No Discharge Prognosis: Improving Lines: None Urinary Catheter: No Medications and DC Order Prescriptions: New atorvastatin 40 mg Tablet 40 mg PO HS 30 Days Qty: 30 RF: 0 polyethylene glycol 3350 [Miralax] 17 gram Powder In Packet 17 g PO DAILY 30 Days Qty: 30 RF: 0 aspirin 81 mg Tablet,Delayed Release (Dr/Ec) 81 mg PO Q24H 30 Days Qty: 30 RF: 0 fluoxetine 10 mg Capsule 10 mg PO QAM 30 Days Qty: 30 RF: 0 Continued metformin 1,000 mg tablet 1,000 mg PO DAILY RF: 0 warfarin 5 mg tablet 5 mg PO DAILY RF: 0 ibuprofen [Advil] 200 mg Tablet 200 mg PO Q6H PRN (Reason: Pain) RF: 0 warfarin 1 mg tablet 1 mg PO DAILY RF: 0 Combivent Respimat 20-100 mcg/actuation mist 1 puff INHALATION QID RF: 0 Discharge Orders: Discharge Order (Routine); Ordered 07/22/21 Ordered By: Raul Ronquillo/Other Patient Handouts: A1C, High Blood Sugar (Hyperglycemia), Hypoglycemia (Low Blood Sugar), Managing Type 2 Diabetes, Stroke: Taking Medicines, Stroke: Resources and Support, Stroke: Self-Care, Stroke Regaining Movement, Stroke Prevention Eating Healthy Admission Data Admit Date/Time: 07/16/21 02:47 Attending Provider: Joey Garibay Admit Provider: Kentrell Lindsey Primary Care Provider: Denis Samuel Other Providers: [facility] ; Jose Alfredo Martin ; Javan Turcios ; Nolberto Stokes Other Interventions: Discharge Summary Assessment (RN) Last Done: 07/22/21 13:51 Supervising Physician Co-Signing Physician Notes I personally examined the patient and verified all simons points of history and exam, discussed case, and agree with decision making with Dr Moncada. Agree with impression and plan as noted in his documentation. Upon examination, the patient without complaints. Her speech continues to become more clear and understandable. Her overall affect seems improved today as well. Exam 129/80, 84, 20, 36.7, 93% on room air Impression and plan CVA Continue aspirin 81 mg daily Fluoxetine 10 mg was added for post CVA depression; this can be titrated in the future if needed. Coumadin has been restarted; will need monitoring PT/INR Atorvastatin 40 mg p.o. nightly added Tobacco cessation Transfer today for acute inpatient rehabilitation Additional per resident documentation Resident Activity Tracking Resident Involvement: Resident Care Provided Care Provided: Adult Hospital Medicine
--- NOTE | 2021-07-22 13:10 | Electrocardiogram Report ---
Test Reason : Blood Pressure : / mmHG Vent. Rate : 078 BPM Atrial Rate : 078 BPM P-R Int : 156 ms QRS Dur : 080 ms QT Int : 434 ms P-R-T Axes : 095 072 075 degrees QTc Int : 494 ms Normal sinus rhythm Nonspecific T wave abnormality Prolonged QT Abnormal ECG Confirmed by Marshall Armenta ([id number]) on 07/22/2021 1:09:35 PM Referred By: REFERRED SELF Confirmed By:Jelani Armenta
[2021-07-22] MEDS ORDERED: WARFARIN SOD 1 MG TAB PO ONE (16:00)
== END 2021-07-22 14:30 | DRG 66 ==
LOC: ED 23:50 → 1E 07-16 02:47 → SUATTDRO 07-16 02:47 → 1E 07-16 03:50 → 2W 07-17 13:05